=== PATIENT | male | born 1955 | race Caucasian/White ===

== ENCOUNTER 2023-03-08 05:30 | Inpatient (IN) | payer OTHER ==
[2023-03-08] MEDS ORDERED: TENECTEPLASE 50 MG/10 ML VIAL IV ONE (06:10)
[2023-03-08 06:13] LABS: Absolute Lymphocytes (CBC) 2.3 K/uL (0.7-4.9); Hematocrit 45.6 % (39.6-49.0); Lymphocytes % 24.2 % (15.3-44.8); MCV 88.4 fL (80-100); MPV 7.8 fL (7.6-11.3); Platelets 243 thou/uL (152-406); RBC Red Blood Cell Count 5.15 M/uL (4.33-5.43)
[2023-03-08 06:15] LABS: Protime INR 0.8
[2023-03-08] MEDS ORDERED: ONDANSETRON 4 MG/2 ML VIAL ONE (06:15)
[2023-03-08] MEDS ORDERED: HYDRALAZINE HCL 20 MG/ML VIAL ONE ×2 (06:15→07:38)
[2023-03-08 06:42] LABS: ALT/SGPT 20 U/L (16-61); AST/SGOT 4 U/L (15-37); Albumin 3.5 g/dL (3.4-5.0); Alkaline Phosphatase 112 U/L (45-117); BUN Blood Urea Nitrogen 21 mg/dL (7-18); Bicarbonate 28 mEq/L (21-32); Bilirubin Total 0.3 mg/dL (0.2-1.0); Glomerular Filtration Rate 75 ml/min (=/>90); Glucose Level 365 mg/dL (74-106); Magnesium 2.1 mg/dL (1.6-2.4); Potassium 4.3 mEq/L (3.5-5.1); Protein, Total 6.7 g/dL (6.4-8.2); Sodium Level 135 mEq/L (136-145); Troponin High Sensitivity 5.9 pg/mL (<58.9)
[2023-03-08 06:47] LABS: Bilirubin Direct < 0.1 mg/dL (0-0.2); Bilirubin Indirect, Calculated ND mg/dL (0.2-0.8)
--- NOTE | 2023-03-08 06:57 | EDPHYS ---
Physician Documentation [facility] Name: Mohit Gamez Age: 67 yrs Sex: Male : 1955 Arrival Date: 03/08/2023 Time: 05:30 Bed 3 Private MD: ED Physician Rolan Carrillo HPI: 03/08 05:40 This 67 yrs old Male presents to ER via Unassigned with complaints of S/S of sp4 Possible Stroke. 05:41 Very pleasant 67-year-old male presents with a cute onset of reported left-sided sp4 weakness and slurred speech starting at 4:30 this morning when patient was getting ready for work. . Patient also reported problems using his left arm and left leg. However patient managed to walk into the emergency department. Patient has facial asymmetry with left-sided facial droop on arrival. . No prior similar history reported. Denies surgery in the last 2-months . Historical: - Allergies: 05:42 No Known Allergies; lg3 - Home Meds: 05:42 Metformin Oral [Active]; unknown "statin" [Active]; gleperil [Active]; lg3 - PMHx: 05:42 Diabetes mellitus; high cholesterol; HTN; lg3 - PSHx: 05:42 Appendectomy; lg3 - Immunization history:: Adult Immunizations up to date, Client reports receiving the 2nd dose of the Covid vaccine. - Social history:: Smoking status: Patient reports the use of cigarette tobacco products, smokes one pack cigarettes per day. Patient uses alcohol, on a daily basis. - Family history:: not pertinent. ROS: 05:41 Constitutional: Negative for fever, chills, and weight loss, Eyes: Negative for injury, sp4 pain, redness, and discharge, ENT: Negative for injury, pain, and discharge, Neck: Negative for injury, pain, and swelling, Cardiovascular: Negative for chest pain, palpitations, and edema, Respiratory: Negative for shortness of breath, cough, wheezing, and pleuritic chest pain, Abdomen/GI: Negative for abdominal pain, nausea, vomiting, diarrhea, and constipation, Back: Negative for injury and pain, : Negative for injury, bleeding, discharge, and swelling, MS/Extremity: Negative for injury and deformity, Skin: Negative for injury, rash, and discoloration, Neuro: Negative for headache, positive for left-sided weakness, left-sided facial asymmetry, slurring of the speech, left-sided numbness Psych: Negative for depression, anxiety, Allergy/Immunology: Negative for hives, rash, and allergies Endocrine: Negative for neck swelling, polydipsia, polyuria, polyphagia, and weight changes Hematologic/Lymphatic: Negative for swollen nodes, abnormal bleeding, and unusual bruising Exam: 05:41 Constitutional: This is a well developed, well nourished patient who is awake, alert, sp4 and in no acute distress. Head/Face: Normocephalic, atraumatic. Eyes: Pupils equal round and reactive to light, extra-ocular motions intact. Lids and lashes normal. Conjunctiva and sclera are not injected. Cornea within normal limits. Periorbital areas with no swelling, redness, or edema. ENT: Nares patent. No nasal discharge, no septal abnormalities noted. Tympanic membranes are normal and external auditory canals are clear. Oropharynx with no redness, swelling, or masses, exudates, or evidence of obstruction, uvula midline. Mucous membranes moist. Neck: Trachea midline, no thyromegaly or masses palpated, and no cervical lymphadenopathy. Supple, full range of motion without nuchal rigidity, or vertebral point tenderness. Chest/axilla: Normal chest wall appearance and motion. Nontender with no deformity. No lesions are appreciated. Cardiovascular: Regular rate and rhythm with a normal S1 and S2. No gallops, murmurs, or rubs. Normal PMI, no JVD. No pulse deficits. Respiratory: Lungs have equal breath sounds bilaterally, clear to auscultation and percussion. No rales, rhonchi or wheezes noted. No increased work of breathing, no retractions or nasal flaring. Abdomen/GI: Soft, non-tender, with normal bowel sounds. No distension or tympany. No guarding or rebound. No evidence of tenderness throughout. Back: No spinal tenderness. No costovertebral tenderness. Skin: Warm, dry with normal turgor. Normal color with no rashes, no lesions, and no evidence of cellulitis. MS/ Extremity: Pulses equal, no cyanosis. Neurovascular intact. Full, normal range of motion. Neuro: Awake and alert, GCS 15, oriented to person, place, time, and situation. There is a left-sided facial asymmetry, and there is mild dysarthria, there is diminished sensation left face left arm left lower extremity. Gait is normal, coordination is normal, visual briones are normal. Psych: Awake, alert, with orientation to person, place and time. Behavior, mood, and affect are within normal limits 06:03 ECG was reviewed by the Attending Physician. EKG time 0601 is normal sinus rhythm at sp4 a rate of 84, no ST elevation or depression, no ectopy overall normal EKG 07:01 Radiologist reports: CT head no contrastunremarkable sp4 Vital Signs: 05:38 BP 199 / 92; Pulse 92; Resp 18 S; Pulse Ox 99% on R/A; Height 5 ft. 10 in. (R); lg3 05:48 Weight 118 kg (M); lg3 06:00 BP 178 / 93; Pulse 87; Resp 16; Pulse Ox 97% on R/A; jb4 06:30 BP 164 / 90; Pulse 82; Resp 20; Pulse Ox 98% on R/A; jb4 07:15 BP 191 / 84; Pulse 75; Resp 18; Pulse Ox 99% on R/A; ph 07:39 BP 174 / 87; Pulse 89; Resp 18; Pulse Ox 100% on R/A; ph 08:00 BP 176 / 86; Pulse 92; Resp 18; Pulse Ox 98% on R/A; ph 09:00 BP 157 / 95; Pulse 96; Resp 18; Pulse Ox 99% on R/A; ph 09:30 BP 155 / 82; Pulse 90; Resp 18; Pulse Ox 100% on R/A; ph 10:30 BP 173 / 94; Pulse 86; Resp 18; Pulse Ox 98% on R/A; ph 11:30 BP 143 / 84; Pulse 85; Resp 18; Pulse Ox 98% on R/A; ph 12:30 BP 138 / 73; Pulse 84; Resp 18; Temp 97.5; Pulse Ox 99% on R/A; ph 13:00 BP 141 / 78; Pulse 87; Resp 18; Temp 97.5; Pulse Ox 99% on R/A; ph 05:48 Body Mass Index 37.33 (118.00 kg, 177.8 cm) lg3 NIH Stroke Scale Scores: 05:40 NIHSS Score: 4 sp4 05:47 NIHSS Score: 4 ha1 06:30 NIHSS Score: 3 ha1 06:49 NIHSS Score: 3 jb4 Eran Coma Score: 05:40 Eye Response: spontaneous(4). Motor Response: obeys commands(6). Verbal Response: sp4 oriented(5). Total: 15. MDM: 06:03 ED course: At [address] head read as negative. TNK ordered for the patient . sp4 06:03 Differential diagnosis: CVA, TIA, Dementia, paralysis, Alzheimer disease, Parkinson sp4 disease, metabolic disorder, drug effects. Data reviewed: vital signs, nurses notes, old medical records, lab test result(s), EKG, radiologic studies, CT scan, plain films. 06:16 Patient medically screened. sp4 06:57 ED course: EXAM DESCRIPTION: CT of the head without contrast CLINICAL HISTORY: STROKE sp4 ALERT COMPARISON: None available TECHNIQUE: Axial CT of the head obtained from the skull apex to the skull base without contrast. This exam was performed according to our departmental dose-optimization program, which includes automated exposure control, adjustment of the mA and/or kV according to patient size and/or use of iterative reconstruction technique. FINDINGS: No acute intracranial hemorrhage identified. No mass, mass effect, shift of the midline, abnormal extra-axial fluid collection or CT evidence of acute ischemic change identified. The ventricular system and sulcal spaces are age appropriate. Scattered areas of hypodensity throughout the supratentorial white matter are nonspecific and may be related to chronic small vessel ischemic change. The visualized paranasal sinuses and mastoid air cells are well aerated. No skull fracture identified. Visualized orbits and globes are unremarkable. Atherosclerotic calcification of the intracranial internal carotid arteries. IMPRESSION: 1. No acute intracranial abnormality by CT criteria. . ED course: EXAM DESCRIPTION: Chest Single View CLINICAL HISTORY: CVA COMPARISON: None. FINDINGS: Single frontal radiograph view of the chest. Cardiomediastinal silhouette: Normal size and contour. Lungs: No consolidation, pneumothorax, or pleural effusion. Bones: Degenerative change of the spine and shoulders. Upper abdomen: No abnormality identified. IMPRESSION: 1. No acute pneumonic process identified. . 06:57 ED course: Patient presents with acute CVA sign of left-sided weakness, left facial sp4 asymmetry by exam and also some dysarthria. There is no perceptible weakness along the strength exam on the left arm and left leg however there is perceptible left facial paralysis left-sided facial numbness as well. NIHSS score is 4. Patient was given TNK emergently here in the ER. There is no available ICU beds here at [place]. Patient was discussed with neurologist Dr. Michel who reports that patient should be managed in ICU. at this time patient is undergoing CT head and neck with angiography. Patient should be transferred to hospital with ICU capacity. . 07:04 Transition of care: After a detail discussion of the patient's case, care is sp4 transferred to Brittnee Mendenhall MD. 07:49 Transition of care: Care assumed from Rolan Carrillo MD. ED course: Pending results sd2 of CTA head and neck for transfer. . 09:40 ED course: Case discussed with [facility] Director and we will have ICU beds available sd2 today for this patient so no need to transfer at this time. Case discussed with Dr. Nava and accepted. . 03/08 05:38 Order name: Basic Metabolic Panel; Complete Time: 07:18 sp4 03/08 05:38 Order name: CBC with Diff; Complete Time: 07:18 sp4 03/08 05:38 Order name: Hepatic Function; Complete Time: 07:18 sp4 03/08 05:38 Order name: High Sensitivity Troponin; Complete Time: 07:18 sp4 03/08 05:38 Order name: Magnesium; Complete Time: 07:18 sp4 03/08 05:38 Order name: Protime (+inr); Complete Time: 07:18 sp4 03/08 05:38 Order name: Ptt, Activated; Complete Time: 07:18 sp4 03/08 05:38 Order name: UDS sp4 03/08 09:41 Order name: CBC with Automated Diff EDMS 03/08 09:41 Order name: CBC with Automated Diff EDMS 03/08 09:41 Order name: Comprehensive Metabolic Panel EDMS 03/08 09:41 Order name: Comprehensive Metabolic Panel EDMS 03/08 09:41 Order name: Lipid Profile EDMS 03/08 09:41 Order name: Lipid Profile EDMS 03/08 09:41 Order name: Magnesium EDMS 03/08 09:41 Order name: Magnesium EDMS 03/08 09:41 Order name: Phosphorus EDMS 03/08 09:41 Order name: Phosphorus EDMS 03/08 09:41 Order name: Protime (+INR) EDMS 03/08 09:41 Order name: Protime (+INR) EDMS 03/08 09:41 Order name: Protime (+INR) EDMS 03/08 09:41 Order name: Protime (+INR) EDMS 03/08 09:41 Order name: Protime (+INR) EDMS 03/08 09:41 Order name: Protime (+INR) EDMS 03/08 09:41 Order name: PTT, Activated Partial Thromb EDMS 03/08 09:41 Order name: PTT, Activated Partial Thromb EDMS 03/08 09:41 Order name: PTT, Activated Partial Thromb EDMS 03/08 09:41 Order name: PTT, Activated Partial Thromb EDMS 03/08 09:41 Order name: PTT, Activated Partial Thromb EDMS 03/08 09:41 Order name: PTT, Activated Partial Thromb EDMS 03/08 05:38 Order name: CT Stroke Brain w/o Contrast [facility] 03/08 05:38 Order name: Stroke CXR 1 View [facility] 03/08 06:01 Order name: CT Head Angio; Complete Time: 07:55 sp4 03/08 06:02 Order name: CT Neck Angio; Complete Time: 07:55 4 03/08 09:41 Order name: Echo with Doppler EDMI 03/08 09:41 Order name: Brain Wo Cont EDMI 03/08 05:38 Order name: EKG; Complete Time: 05:39 sp4 03/08 09:41 Order name: Physical Therapy Consult EDMI 03/08 09:41 Order name: NPO EDMI 03/08 09:41 Order name: Speech Therapy Consult [facility] 03/08 05:38 Order name: Accucheck; Complete Time: 06:31 sp4 03/08 05:38 Order name: Cardiac monitoring; Complete Time: 06:19 sp4 03/08 05:38 Order name: EKG - Nurse/Tech; Complete Time: 06:19 sp4 03/08 05:38 Order name: IV Saline Lock; Complete Time: 05:57 sp4 03/08 05:38 Order name: Labs collected and sent; Complete Time: 05:57 sp4 03/08 05:38 Order name: NPO; Complete Time: 05:57 sp4 03/08 05:38 Order name: O2 Per Protocol; Complete Time: 05:57 sp4 03/08 05:38 Order name: O2 Sat Monitoring; Complete Time: 05:57 sp4 03/08 05:38 Order name: Stroke Swallow Screen; Complete Time: 06:31 sp4 EC:03 Rate is 84 beats/min. Rhythm is regular, Normal Sinus Rhythm. QRS Liguori is Normal. IA sp4 interval is normal. QRS interval is normal. QT interval is normal. T waves are Normal. No ST changes noted. Clinical impression: No evidence of ischemia. Interpreted by me. Administered Medications: 06:09 Drug: TNK FOR STROKE - Tenecteplase IV 0.25 mg/kg {Co-Signature: tiny (april Linocln RN).} Route: IV; Rate: per protocol; Site: right forearm; 07:17 Follow up: Response: No adverse reaction ha1 06:12 Drug: hydrALAZINE IVP 10 mg Route: IVP; Site: left forearm; jb4 06:30 Follow up: Response: No adverse reaction; Blood pressure is lowered ha1 06:12 Drug: Ondansetron IVP 4 mg Route: IVP; Site: left forearm; jb4 06:30 Follow up: Response: No adverse reaction ha1 07:38 Drug: hydrALAZINE IVP 10 mg Route: IVP; Site: right forearm; ph 08:30 Follow up: Response: No adverse reaction; Blood pressure is lowered ph Disposition Summary: 03/08/23 09:38 Hospitalization Ordered Hospitalization Status: Inpatient Admission sd2 Provider: Leanna Nava Location: Intensive Care Unit sd2 Condition: Stable(03/08/23 09:38) sd2 Problem: new(03/08/23 09:38) sd2 Symptoms: have improved(03/08/23 09:38) sd2 Bed/Room Type: Standard tx2 Room Assignment: 2-(03/08/23 11:25) iw Diagnosis - Dysarthria sd2 - Left facial asymmetry sd2 - Left sided weakness sd2 - Cerebrovascular accident sd2 Forms: - Medication Reconciliation Form sd2 - SBAR form sd2 Critical care time excluding procedures: 07:04 Critical care time: Bedside Care: 36 minutes, Consultation: 12 minutes. Total time: 48 sp4 minutes NIH Stroke Scale - NIH Stroke Score Date: 03/08/2023 Time: 05:40 Total Score = 4 10. Dysarthria (speech clarity - read or repeat words) - 1(Mild to Moderate) 11. Extinction and Inattention (visual/tactile/auditory/spatial/personal) - 0(No abnormality) 1a. Level of Consciousness (LOC) - 0(Alert) 1b. Level of Consciousness (LOC) (Month \\T\\ Age) - 0(Both) 1c. LOC Commands (Open \\T\\ Closes Eyes/Ore Grader) - 0(Both) 2. Best Gaze (Lateral Gaze Paresis) - 0(Normal) 3. Visual Field Loss - 0(No visual loss) 4. Facial Palsy - 2(Partial paralysis) 5a. Left Arm: Motor (10-second hold) - 0(No drift) 5b. Right Arm: Motor (10-second hold) - 0(No drift) 6a. Left Leg: Motor (5-second hold - always test supine) - 0(No drift) 6b. Right Leg: Motor (5-second hold - always test supine) - 0(No drift) 7. Limb Ataxia (finger/nose \\T\\ heel/aponte - test with eyes open) - 0(Absent) 8. Sensory Loss (pinprick arms/legs/face) - 1(Mild to moderate loss) 9. Best Language: Aphasia (description/naming/reading) - 0(No aphasia) Initials: sp4 NIH Stroke Scale - NIH Stroke Score Date: 03/08/2023 Time: 05:47 Total Score = 4 10. Dysarthria (speech clarity - read or repeat words) - 1(Mild to Moderate) 11. Extinction and Inattention (visual/tactile/auditory/spatial/personal) - 0(No abnormality) 1a. Level of Consciousness (LOC) - 0(Alert) 1b. Level of Consciousness (LOC) (Month \\T\\ Age) - 0(Both) 1c. LOC Commands (Open \\T\\ Closes Eyes/Ore Grader) - 0(Both) 2. Best Gaze (Lateral Gaze Paresis) - 0(Normal) 3. Visual Field Loss - 0(No visual loss) 4. Facial Palsy - 2(Partial paralysis) 5a. Left Arm: Motor (10-second hold) - 0(No drift) 5b. Right Arm: Motor (10-second hold) - 0(No drift) 6a. Left Leg: Motor (5-second hold - always test supine) - 0(No drift) 6b. Right Leg: Motor (5-second hold - always test supine) - 0(No drift) 7. Limb Ataxia (finger/nose \\T\\ heel/aponte - test with eyes open) - 0(Absent) 8. Sensory Loss (pinprick arms/legs/face) - 1(Mild to moderate loss) 9. Best Language: Aphasia (description/naming/reading) - 0(No aphasia) Initials: ha1 NIH Stroke Scale - NIH Stroke Score Date: 03/08/2023 Time: 06:30 Total Score = 3 10. Dysarthria (speech clarity - read or repeat words) - 0(Normal) 11. Extinction and Inattention (visual/tactile/auditory/spatial/personal) - 0(No abnormality) 1a. Level of Consciousness (LOC) - 0(Alert) 1b. Level of Consciousness (LOC) (Month \\T\\ Age) - 0(Both) 1c. LOC Commands (Open \\T\\ Closes Eyes/Ore Grader) - 0(Both) 2. Best Gaze (Lateral Gaze Paresis) - 0(Normal) 3. Visual Field Loss - 0(No visual loss) 4. Facial Palsy - 2(Partial paralysis) 5a. Left Arm: Motor (10-second hold) - 0(No drift) 5b. Right Arm: Motor (10-second hold) - 0(No drift) 6a. Left Leg: Motor (5-second hold - always test supine) - 0(No drift) 6b. Right Leg: Motor (5-second hold - always test supine) - 0(No drift) 7. Limb Ataxia (finger/nose \\T\\ heel/aponte - test with eyes open) - 0(Absent) 8. Sensory Loss (pinprick arms/legs/face) - 1(Mild to moderate loss) 9. Best Language: Aphasia (description/naming/reading) - 0(No aphasia) Initials: ha1 NIH Stroke Scale - NIH Stroke Score Date: 03/08/2023 Time: 06:49 Total Score = 3 10. Dysarthria (speech clarity - read or repeat words) - 1(Mild to Moderate) 11. Extinction and Inattention (visual/tactile/auditory/spatial/personal) - 0(No abnormality) 1a. Level of Consciousness (LOC) - 0(Alert) 1b. Level of Consciousness (LOC) (Month \\T\\ Age) - 0(Both) 1c. LOC Commands (Open \\T\\ Closes Eyes/Ore Grader) - 0(Both) 2. Best Gaze (Lateral Gaze Paresis) - 0(Normal) 3. Visual Field Loss - 0(No visual loss) 4. Facial Palsy - 1(Minor Paralysis) 5a. Left Arm: Motor (10-second hold) - 0(No drift) 5b. Right Arm: Motor (10-second hold) - 0(No drift) 6a. Left Leg: Motor (5-second hold - always test supine) - 0(No drift) 6b. Right Leg: Motor (5-second hold - always test supine) - 0(No drift) 7. Limb Ataxia (finger/nose \\T\\ heel/aponte - test with eyes open) - 0(Absent) 8. Sensory Loss (pinprick arms/legs/face) - 1(Mild to moderate loss) 9. Best Language: Aphasia (description/naming/reading) - 0(No aphasia) Initials: jb4 Signatures: Dispatcher [employer] EDVanna Dougherty, RN RN iw Ewa Justice RN RN ph Aden Lincoln, ANDRES RN jb4 Joya Nunez RN RN lg3 Brittnee Mendenhall MD MD sd2 Estefanía Hughes RN RN ha1 Rolan Carrillo MD MD sp4 Aden Lincoln RN jb4 Corrections: (The following items were deleted from the chart) 09:37 06:57 [facility] neurology, [facility] sp4 sd2 09:37 06:57 [facility] sp4 sd2 09:37 06:57 Higher level of care sp4 sd2 09:37 06:57 Stable sp4 sd2 09:37 06:57 new sp4 sd2 09:37 06:57 have improved sp4 sd2 09:37 06:57 Dysarthria following other cerebrovascular disease sp4 sd2 09:37 06:57 Acute CVA, left-sided weakness, left facial paralysis sp4 sd2 11:25 09:38 sd2 iw
--- NOTE | 2023-03-08 06:57 | ER ---
Nurse's Notes [facility] Name: Mohit Gamez Age: 67 yrs Sex: Male : 1955 Arrival Date: 03/08/2023 Time: 05:30 Bed 3 Private MD: Diagnosis: Dysarthria;Left facial asymmetry;Left sided weakness ;Cerebrovascular accident Presentation: 03/08 05:38 Chief complaint: Patient states: left sided numbness and weakness starting 2030 lg3 yesterday. left sided facial droop and slurred speech beginning at 0430 this morning. Coronavirus screen: Client denies travel out of the [place] in the last 14 days. At this time, the client does not indicate any symptoms associated with coronavirus-19. Ebola Screen: No symptoms or risks identified at this time. No acute neurological deficit is noted. Initial Sepsis Screen: Does the patient meet any 2 criteria? No. Patient's initial sepsis screen is negative. Does the patient have a suspected source of infection? No. Patient's initial sepsis screen is negative. Risk Assessment: Do you want to hurt yourself or someone else? Patient reports no desire to harm self or others. Onset of symptoms was March 08, 2023 at 04:30. 05:38 Method Of Arrival: Wheelchair lg3 05:38 Acuity: SAHRA 2 lg3 Triage Assessment: 05:42 The onset of the patients symptoms was March 08, 2023 at 04:30. General: Appears in no lg3 apparent distress. comfortable, Behavior is calm, cooperative. Pain: Denies pain. EENT: No deficits noted. Neuro: Level of Consciousness is awake, alert, obeys commands, Oriented to person, place, time, situation, Speech is slurred, Facial droop on left, Reports numbness weakness. Cardiovascular: No deficits noted. Denies chest pain, shortness of breath, Capillary refill < 3 seconds Clubbing of nail beds is absent JVD is absent Patient's skin is warm and dry. Respiratory: No deficits noted. Airway is patent Respiratory effort is even, unlabored, Respiratory pattern is regular, symmetrical. GI: No deficits noted. No signs and/or symptoms were reported involving the gastrointestinal system. Abdomen is round non-distended. : No deficits noted. No signs and/or symptoms were reported regarding the genitourinary system. Derm: No deficits noted. No signs and/or symptoms reported regarding the dermatologic system. Skin is intact, is healthy with good turgor, Skin is dry, Skin is normal, Skin temperature is warm. Musculoskeletal: Circulation, motion, and sensation intact. Range of motion: intact in all extremities. Stroke Activation: Symptom onset < 3 hours Physician: Stroke Attending; Name: ; Notified At: ; Arrived At: Physician: Chief Stroke Resident; Name: ; Notified At: ; Arrived At: Physician: Stroke Resident; Name: ; Notified At: ; Arrived At: Physician: ED Attending; Name: ; Notified At: ; Arrived At: Physician: ED Resident; Name: ; Notified At: ; Arrived At: Historical: - Allergies: 05:42 No Known Allergies; lg3 - Home Meds: 05:42 Metformin Oral [Active]; unknown "statin" [Active]; gleperil [Active]; lg3 - PMHx: 05:42 Diabetes mellitus; high cholesterol; HTN; lg3 - PSHx: 05:42 Appendectomy; lg3 - Immunization history:: Adult Immunizations up to date, Client reports receiving the 2nd dose of the Covid vaccine. - Social history:: Smoking status: Patient reports the use of cigarette tobacco products, smokes one pack cigarettes per day. Patient uses alcohol, on a daily basis. - Family history:: not pertinent. Screenin:32 Abuse screen: Denies threats or abuse. Denies injuries from another. Nutritional ha1 screening: No deficits noted. Tuberculosis screening: No symptoms or risk factors identified. 06:34 [facility] ED Fall Risk Assessment (Adult) History of falling in the last 3 months, jb4 including since admission No falls in past 3 months (0 pts) Confusion or Disorientation No (0 pts) Score/Fall Risk Level 0 - 2 = Low Risk. Assessment: 05:37 General: Appears comfortable, Behavior is calm, cooperative. Pain: Denies pain. Neuro: ha1 Level of Consciousness is awake, alert, obeys commands, Oriented to person, place, time, situation, Diploma Maker are weak on left Moves all extremities. Full function Gait is steady, Speech is slurred, Facial droop on left, Pupils are PERRLA, Tingling in left arm Reports paresthesias in left arm. Neuro: Fonseca Agitation-Sedation Scale (RASS): 0 - Alert and Calm. Cardiovascular: Heart tones S1 S2 present Patient's skin is warm and dry. Rhythm is sinus rhythm. Respiratory: Airway is patent Respiratory effort is even, unlabored, Respiratory pattern is regular, symmetrical. GI: No signs and/or symptoms were reported involving the gastrointestinal system. Abdomen is round non-distended, obese, Bowel sounds present X 4 quads. : No signs and/or symptoms were reported regarding the genitourinary system. EENT: No deficits noted. No signs and/or symptoms were reported regarding the EENT system. Derm: Skin is pink, warm \\T\\ dry. Musculoskeletal: Circulation, motion, and sensation intact. 05:49 TNKase (Tenecteplase) Screening: Indications: Definite evidence of stroke, ischemic, ha1 embolic, or hypertensive: Yes. Treatment will start within 4.5 hours onset of symptoms: Yes. No evidence of intracranial hemorrhage or CT of head and no evidence of peripheral hemorrhage or recent CVA: No. Consent for thrombolytic therapy: Yes. 05:58 Reassessment: CT report called to Dr Carrillo. 06:13 Reassessment: ER provider instructed this nurse to give 10mg of hydralazine per Dr. tiny Michel to maintain a systolic pressure less than 170. 06:30 Reassessment: Patient and/or family updated on plan of care and expected duration. Pain ha1 level reassessed. Patient is alert, oriented x 3, equal unlabored respirations, skin warm/dry/pink. 06:31 Edie Swallow Protocol Brief Cognitive Screen What is your name? Normal, Where are you jb4 right now? Normal, What year is it? Normal. Oral Mechanism Examination Facial Symmetry: Abnormal: Droop to the left side of the face. Motion: Normal, Lip Closure: Normal, Oral Mechanism Result: Abnormal: . 3 oz Water Swallow Challenge: Pt able to drink all water without stopping, coughing, choking or throat clearing: Result: GLADYS EVANS Notified: Rolan Carrillo MD. 06:51 Neuro: Level of Consciousness is awake, alert, obeys commands, Oriented to person, jb4 place, time, situation, Diploma Maker are weak on left Full function Gait is steady, Speech is slurred, Facial droop on left, Pupils are PERRLA, Numbness in left arm. 07:15 Reassessment: Patient appears in no apparent distress at this time. Patient and/or ph family updated on plan of care and expected duration. Pain level reassessed. Patient is alert, oriented x 3, equal unlabored respirations, skin warm/dry/pink. Patient denies pain at this time. 08:30 Reassessment: Patient appears in no apparent distress at this time. Patient and/or ph family updated on plan of care and expected duration. Pain level reassessed. Patient is alert, oriented x 3, equal unlabored respirations, skin warm/dry/pink. 10:00 Reassessment: Patient appears in no apparent distress at this time. Patient and/or ph family updated on plan of care and expected duration. Pain level reassessed. Patient is alert, oriented x 3, equal unlabored respirations, skin warm/dry/pink. 11:00 Reassessment: Patient appears in no apparent distress at this time. Patient and/or ph family updated on plan of care and expected duration. Pain level reassessed. Patient is alert, oriented x 3, equal unlabored respirations, skin warm/dry/pink. 12:53 Reassessment: Patient appears in no apparent distress at this time. Patient and/or ph family updated on plan of care and expected duration. Pain level reassessed. Patient is alert, oriented x 3, equal unlabored respirations, skin warm/dry/pink. Report called to Renea CAMPOS. Vital Signs: 05:38 BP 199 / 92; Pulse 92; Resp 18 S; Pulse Ox 99% on R/A; Height 5 ft. 10 in. (R); lg3 05:48 Weight 118 kg (M); lg3 06:00 BP 178 / 93; Pulse 87; Resp 16; Pulse Ox 97% on R/A; jb4 06:30 BP 164 / 90; Pulse 82; Resp 20; Pulse Ox 98% on R/A; jb4 07:15 BP 191 / 84; Pulse 75; Resp 18; Pulse Ox 99% on R/A; ph 07:39 BP 174 / 87; Pulse 89; Resp 18; Pulse Ox 100% on R/A; ph 08:00 BP 176 / 86; Pulse 92; Resp 18; Pulse Ox 98% on R/A; ph 09:00 BP 157 / 95; Pulse 96; Resp 18; Pulse Ox 99% on R/A; ph 09:30 BP 155 / 82; Pulse 90; Resp 18; Pulse Ox 100% on R/A; ph 10:30 BP 173 / 94; Pulse 86; Resp 18; Pulse Ox 98% on R/A; ph 11:30 BP 143 / 84; Pulse 85; Resp 18; Pulse Ox 98% on R/A; ph 12:30 BP 138 / 73; Pulse 84; Resp 18; Temp 97.5; Pulse Ox 99% on R/A; ph 13:00 BP 141 / 78; Pulse 87; Resp 18; Temp 97.5; Pulse Ox 99% on R/A; ph 05:48 Body Mass Index 37.33 (118.00 kg, 177.8 cm) lg3 Eran Coma Score: 05:40 Eye Response: spontaneous(4). Motor Response: obeys commands(6). Verbal Response: sp4 oriented(5). Total: 15. NIH Stroke Scale Scores: 05:40 NIHSS Score: 4 sp4 05:47 NIHSS Score: 4 ha1 06:30 NIHSS Score: 3 ha1 06:49 NIHSS Score: 3 jb4 ED Course: 05:30 Patient arrived in ED. ja2 05:32 Patient has correct armband on for positive identification. Placed in gown. Bed in low ha1 position. Call light in reach. Side rails up X2. 05:32 Arm band placed on right wrist. ha1 05:38 Rolan Carrillo MD is Attending Physician. sp4 05:42 Triage completed. lg3 05:47 CT Stroke Brain w/o Contrast In Process Unspecified. EDMS 05:50 Initial lab(s) drawn, by sd, sent to lab. Inserted saline lock: 18 gauge in right jb4 antecubital area, using aseptic technique. Blood collected. 05:53 Stroke CXR 1 View In Process Unspecified. EDMS 05:57 Inserted saline lock: 20 gauge in left forearm, using aseptic technique. kl 07:00 Report given to ANDRES ALEJANDRO. ha1 07:17 CT Head Angio In Process Unspecified. EDMS 07:17 CT Neck Angio In Process Unspecified. EDMS 07:21 Ewa Justice, RN is Primary Nurse. ph 07:59 No provider procedures requiring assistance completed. Patient transferred, IV remains ph in place. 07:59 Provided Education on: Pt and family educated on risk of bleeding r/t TNK. ph 09:37 Leanna Nava MD is Hospitalizing Provider. sd2 Administered Medications: 06:09 Drug: TNK FOR STROKE - Tenecteplase IV 0.25 mg/kg {Co-Signature: jb4 (Salazar, jonathan1 Aden CAMPOS).} Route: IV; Rate: per protocol; Site: right forearm; 07:17 Follow up: Response: No adverse reaction ha1 06:12 Drug: hydrALAZINE IVP 10 mg Route: IVP; Site: left forearm; jb4 06:30 Follow up: Response: No adverse reaction; Blood pressure is lowered ha1 06:12 Drug: Ondansetron IVP 4 mg Route: IVP; Site: left forearm; jb4 06:30 Follow up: Response: No adverse reaction ha1 07:38 Drug: hydrALAZINE IVP 10 mg Route: IVP; Site: right forearm; ph 08:30 Follow up: Response: No adverse reaction; Blood pressure is lowered ph Medication: 07:40 VIS not applicable for this client. ph Outcome: 06:57 ER care complete, transfer ordered by . sp4 09:38 Decision to Hospitalize by Provider. sd2 12:55 Admitted to ICU accompanied by nurse, accompanied by tech, room 2, with chart, Report ph called to ANDRES Meier 12:55 Condition: stable 12:55 Instructed on the need for admit. 13:25 Patient left the ED. ds4 NIH Stroke Scale - NIH Stroke Score Date: 03/08/2023 Time: 05:40 Total Score = 4 10. Dysarthria (speech clarity - read or repeat words) - 1(Mild to Moderate) 11. Extinction and Inattention (visual/tactile/auditory/spatial/personal) - 0(No abnormality) 1a. Level of Consciousness (LOC) - 0(Alert) 1b. Level of Consciousness (LOC) (Month \\T\\ Age) - 0(Both) 1c. LOC Commands (Open \\T\\ Closes Eyes/Loan And Credit Manager) - 0(Both) 2. Best Gaze (Lateral Gaze Paresis) - 0(Normal) 3. Visual Field Loss - 0(No visual loss) 4. Facial Palsy - 2(Partial paralysis) 5a. Left Arm: Motor (10-second hold) - 0(No drift) 5b. Right Arm: Motor (10-second hold) - 0(No drift) 6a. Left Leg: Motor (5-second hold - always test supine) - 0(No drift) 6b. Right Leg: Motor (5-second hold - always test supine) - 0(No drift) 7. Limb Ataxia (finger/nose \\T\\ heel/aponte - test with eyes open) - 0(Absent) 8. Sensory Loss (pinprick arms/legs/face) - 1(Mild to moderate loss) 9. Best Language: Aphasia (description/naming/reading) - 0(No aphasia) Initials: sp4 NIH Stroke Scale - NIH Stroke Score Date: 03/08/2023 Time: 05:47 Total Score = 4 10. Dysarthria (speech clarity - read or repeat words) - 1(Mild to Moderate) 11. Extinction and Inattention (visual/tactile/auditory/spatial/personal) - 0(No abnormality) 1a. Level of Consciousness (LOC) - 0(Alert) 1b. Level of Consciousness (LOC) (Month \\T\\ Age) - 0(Both) 1c. LOC Commands (Open \\T\\ Closes Eyes/Loan And Credit Manager) - 0(Both) 2. Best Gaze (Lateral Gaze Paresis) - 0(Normal) 3. Visual Field Loss - 0(No visual loss) 4. Facial Palsy - 2(Partial paralysis) 5a. Left Arm: Motor (10-second hold) - 0(No drift) 5b. Right Arm: Motor (10-second hold) - 0(No drift) 6a. Left Leg: Motor (5-second hold - always test supine) - 0(No drift) 6b. Right Leg: Motor (5-second hold - always test supine) - 0(No drift) 7. Limb Ataxia (finger/nose \\T\\ heel/aponte - test with eyes open) - 0(Absent) 8. Sensory Loss (pinprick arms/legs/face) - 1(Mild to moderate loss) 9. Best Language: Aphasia (description/naming/reading) - 0(No aphasia) Initials: ha1 NIH Stroke Scale - NIH Stroke Score Date: 03/08/2023 Time: 06:30 Total Score = 3 10. Dysarthria (speech clarity - read or repeat words) - 0(Normal) 11. Extinction and Inattention (visual/tactile/auditory/spatial/personal) - 0(No abnormality) 1a. Level of Consciousness (LOC) - 0(Alert) 1b. Level of Consciousness (LOC) (Month \\T\\ Age) - 0(Both) 1c. LOC Commands (Open \\T\\ Closes Eyes/Loan And Credit Manager) - 0(Both) 2. Best Gaze (Lateral Gaze Paresis) - 0(Normal) 3. Visual Field Loss - 0(No visual loss) 4. Facial Palsy - 2(Partial paralysis) 5a. Left Arm: Motor (10-second hold) - 0(No drift) 5b. Right Arm: Motor (10-second hold) - 0(No drift) 6a. Left Leg: Motor (5-second hold - always test supine) - 0(No drift) 6b. Right Leg: Motor (5-second hold - always test supine) - 0(No drift) 7. Limb Ataxia (finger/nose \\T\\ heel/aponte - test with eyes open) - 0(Absent) 8. Sensory Loss (pinprick arms/legs/face) - 1(Mild to moderate loss) 9. Best Language: Aphasia (description/naming/reading) - 0(No aphasia) Initials: ha1 NIH Stroke Scale - NIH Stroke Score Date: 03/08/2023 Time: 06:49 Total Score = 3 10. Dysarthria (speech clarity - read or repeat words) - 1(Mild to Moderate) 11. Extinction and Inattention (visual/tactile/auditory/spatial/personal) - 0(No abnormality) 1a. Level of Consciousness (LOC) - 0(Alert) 1b. Level of Consciousness (LOC) (Month \\T\\ Age) - 0(Both) 1c. LOC Commands (Open \\T\\ Closes Eyes/Loan And Credit Manager) - 0(Both) 2. Best Gaze (Lateral Gaze Paresis) - 0(Normal) 3. Visual Field Loss - 0(No visual loss) 4. Facial Palsy - 1(Minor Paralysis) 5a. Left Arm: Motor (10-second hold) - 0(No drift) 5b. Right Arm: Motor (10-second hold) - 0(No drift) 6a. Left Leg: Motor (5-second hold - always test supine) - 0(No drift) 6b. Right Leg: Motor (5-second hold - always test supine) - 0(No drift) 7. Limb Ataxia (finger/nose \\T\\ heel/aponte - test with eyes open) - 0(Absent) 8. Sensory Loss (pinprick arms/legs/face) - 1(Mild to moderate loss) 9. Best Language: Aphasia (description/naming/reading) - 0(No aphasia) Initials: jb4 Signatures: Dispatcher [employer] EDMS Asha Cohen, ANDRES RN delmi Hall Errol ds4 Ewa Justice RN RN ph Aden Lincoln RN RN jb4 Joya Nunez RN RN lg3 Yoselyn Ellis Stephanie, MD MD sd2 Estefanía Hughes RN RN ha1 Rolan Carrillo MD MD sp4 Aden Lincoln RN jb4 Corrections: (The following items were deleted from the chart) 06:51 06:30 BP 164 / 9; Pulse 82bpm; Resp 20bpm; Pulse Ox 98% RA; jb4 jb4 07:24 05:37 TNKase (Tenecteplase) Screening: Indications: Definite evidence of ha1 stroke, ischemic, embolic, or hypertensive: Yes. Treatment will start within 4.5 hours onset of symptoms: No evidence of intracranial hemorrhage or CT of head and no evidence of peripheral hemorrhage or recent CVA: No. Consent for thrombolytic therapy: Yes. ha1 07:26 05:37 VAN Scoring: Arm Drift: Patients demonstrates NO arm weakness. Patient is ha1 VAN Negative. ha1 12:55 11:30 BP 138 / 73; Pulse 84bpm; Resp 18bpm; Pulse Ox 99% RA; Temp 97.5F; ph ph
--- NOTE | 2023-03-08 07:42 | RAD REPORT ---
EXAM DESCRIPTION: CT - Neck Angio - 03/08/2023 7:15 am CLINICAL HISTORY: dystharthria COMPARISON: Head angio dated 03/08/2023 TECHNIQUE: Axial CT angiography images of the head was performed with multiplanar and maximum intens ity projection reconstructions. Images performed following intravenous administration of 95mL Isovue 370. All CT scans are performed using dose optimization technique as appropriate and may include automated exposure control or mA/KV adjustment according to patient size. Quantification of carotid stenosis, if any, is performed according to NASCET criteria. FINDINGS: A left aortic arch is identified with 4 vessel configuration scan with the left vertebral artery arising as the third vessel from the arch. No significant flow abnormality is seen of the common carotid bilaterally. Beam hardening artifact du e to dense right subclavian vein contrast obscures the right common carotid artery origin. No significant stenosis is identified involving the cervical segments of both internal carotid arteri es. Mild calcific atherosclerotic plaque at the carotid bifurcations. Normal flow is seen within both vertebral arteries. IMPRESSION: No significant flow abnormality of the neck vessels is identified. Findings as above. CAROTID STENOSIS REFERENCE USING NASCET CRITERIA: % ICA stenosis = (1 - narrowest ICA diameter/diameter of distal cervical ICA) x 100. Mild - <50% stenosis. Moderate - 50-69% stenosis. Severe - 70-94% stenosis. Near occlusion - 95-99% stenosis. Occluded - 100% stenosis.
--- NOTE | 2023-03-08 07:54 | RAD REPORT ---
EXAM DESCRIPTION: CT - Head angio - 03/08/2023 7:15 am CLINICAL HISTORY: APHASIA COMPARISON: Ct Stroke Brain Wo Cont dated 03/08/2023 TECHNIQUE: Axial CT angiography images of the head was performed with multiplanar and maximum intens ity projection reconstructions. Images performed following intravenous administration of 95mL Isovue 370. All CT scans are performed using dose optimization technique as appropriate and may include automated exposure control or mA/KV adjustment according to patient size. FINDINGS: No evidence of large vessel occlusion. No evidence of aneurysm or dissection flap is detec andre. No flow-limiting stenosis or vascular malformation identified. [id number] atherosclerotic calcifications along cavernous ICA segments. Antegrade flow is seen in the vertebral arteries. The vertebral arteries are codominant. The visualized dural venous sinuses are grossly patent. IMPRESSION: No evidence of large vessel occlusion or flow-limiting stenosis.
[2023-03-08] MEDS ORDERED: ACETAMINOPHEN 500 MG TAB PO PRN (09:36)
[2023-03-08] MEDS ORDERED: ONDANSETRON 4 MG/2 ML VIAL IV PRN (09:36)
--- NOTE | 2023-03-08 12:10 | RAD REPORT ---
EXAM DESCRIPTION: MRI - Brain Wo Cont - 03/08/2023 11:50 am CLINICAL HISTORY: CVA; dysarthria COMPARISON: Head CT and CT angiogram of earlier the same day TECHNIQUE: Multiplanar multisequence MRI of the brain performed without IV contrast. FINDINGS: Right centrum semiovale foci of diffusion restriction, with corresponding T2 and FLAIR hyp erintensity. No significant mass effect. No evidence of acute intracranial hemorrhage or abnormal extra-axial fluid collections. Mild diffuse parenchymal volume loss. Ventricular caliber otherwise within normal for age. Midline st ructures are unremarkable. Scattered subcortical and deep white matter T2/FLAIR hyperintensities, nonspecific, but suggestive of chronic small vessel ischemic changes. No mass effect or midline shift. Major vascular flow voids are preserved. Mastoid air cells and paranasal sinuses are clear. Right temporalis region dermal or hypo dermal T2 hyperintense 1.5 centimeter cyst. IMPRESSION: Right centrum semiovale acute to subacute infarct. No evidence of intracranial hemorrhage or significant mass effect. The findings were communicated to Dr. Mendenhall on 03/08/2023 at 12:05 hours.
--- NOTE | 2023-03-08 12:18 | RAD REPORT ---
EXAM DESCRIPTION: RAD - Chest Single View - 03/08/2023 5:52 am CLINICAL HISTORY: CVA COMPARISON: None. FINDINGS: Single frontal radiograph view of the chest. Cardiomediastinal silhouette: Normal size and contour. Lungs: No consolidation, pneumothorax, or pleural effusion. Bones: Degenerative change of the spine and shoulders. Upper abdomen: No abnormality identified. IMPRESSION: 1. No acute pneumonic process identified. Electronically signed by: Luke Medina 03/08/2023 5:59 AM CDT Due to temporary technical issues with the PACS/Fluency reporting system, reports are being signed by the in house radiologists without review as a courtesy to insure prompt reporting. The interpreting radiologist is fully responsible for the content of the report.
--- NOTE | 2023-03-08 12:19 | RAD REPORT ---
EXAM DESCRIPTION: CT - Ct Stroke Brain Wo Cont - 03/08/2023 7:36 am CLINICAL HISTORY: STROKE ALERT COMPARISON: None available TECHNIQUE: Axial CT of the head obtained from the skull apex to the skull base without contrast. Thi s exam was performed according to our departmental dose-optimization program, which includes automate d exposure control, adjustment of the mA and/or kV according to patient size and/or use of iterative reconstruction technique. FINDINGS: No acute intracranial hemorrhage identified. No mass, mass effect, shift of the midline, a bnormal extra-axial fluid collection or CT evidence of acute ischemic change identified. The ventricu lar system and sulcal spaces are age appropriate. Scattered areas of hypodensity throughout the sup ratentorial white matter are nonspecific and may be related to chronic small vessel ischemic change. The visualized paranasal sinuses and mastoid air cells are well aerated. No skull fracture identifi ed. Visualized orbits and globes are unremarkable. Atherosclerotic calcification of the intracranial internal carotid arteries. IMPRESSION: 1. No acute intracranial abnormality by CT criteria. Electronically signed by: Luke Medina 03/08/2023 5:58 AM CDT Due to temporary technical issues with the PACS/Fluency reporting system, reports are being signed by the in house radiologists without review as a courtesy to insure prompt reporting. The interpreting radiologist is fully responsible for the content of the report.
[2023-03-08] MEDS: NA CHLORIDE 0.9% 1,000 ML IV SCH (14:17)
--- NOTE | 2023-03-08 15:43 | EKG ---
Test Date: 2023-03-08 Test Time: 06:01:17 Income Tax Analyst: ALEX MEASUREMENT RESULTS: Intervals: Rate: 84 [place]: 186 QRSD: 90 QT: 388 QTc: 458 [place]: P: 23 [place]: 186 QRS: -28 T: 30 INTERPRETIVE STATEMENTS: Normal sinus rhythm Minimal voltage criteria for LVH, may be normal variant Cannot rule out Anterior infarct, age undetermined Abnormal ECG Compared to ECG 05/13/2017 03:57:49 Left ventricular hypertrophy now present Myocardial infarct finding now present Electronically Signed On 03-08-23 15:42:54 CDT by Ej Valadez
[2023-03-08 16:26] LABS: Specific Gravity 1.023 (1.005-1.030); Urine Bacteria <20 /HPF (<20); Urine Bilirubin NEGATIVE (Negative); Urine Blood Negative (Negative); Urine Clarity Clear (Clear); Urine Color Colorless (Yellow); Urine Glucose 4+ (Negative); Urine Mucus Slight /HPF (None Seen); Urine Protein TRACE (Negative); Urine RBC <5 /HPF (None Seen); Urine Urobilinogen Normal (Normal)
[2023-03-08] MEDS ORDERED: D50W 25 GM/50 ML SYRINGE IV PRN (19:32)
[2023-03-08] MEDS ORDERED: GLUCAGON 1 MG/VIAL IM PRN (19:32)
--- NOTE | 2023-03-08 20:18 | P.HP ---
Certification for Inpatient Patient admitted to: Inpatient With expected LOS: >2 Midnights Patient will require the following post-hospital care: None Practitioner: I am a practitioner with admitting privileges, knowledge of patient current condition, hospital course, and medical plan of care. Services: Services provided to patient in accordance with Admission requirements found in Title 42 Section 412.3 of the Code of Federal Regulations Patient History Date of Service: 03/08/23 Reason for admission: Right sided weakness and dysarthria History of Present Illness: Patient is a 67-year-old gentleman who came to the hospital with complaints of right-sided weakness and dysarthria. When he woke up this morning he stated he was not feeling well. He came to the emergency room for further evaluation. His CT scan was unremarkable but he was still having clinical symptoms. He was given tenecteplase in the emergency room. MRI revealed that patient had a right centrum semiovale acute to subacute infarct with possibly Dysarthria-Clumsy Hand Syndrome. Patient will be monitored in the intensive care unit for the first 24 hours. Patient continues to have dysarthria and weakness. Patient with elevated blood pressure. Allow for permissive hypertension. Continue with strict blood sugar control. Continue with statin therapy and DVT prophylaxis. Patient will be counseled regarding tobacco cessation as well. Allergies No Known Drug Allergies Allergy (Verified 03/08/23 12:47) Unknown Home Medications: Lisinopril/Hydrochlorothiazide [Lisinopril-Hctz 20-25 mg Tab] 1 tab PO DAILY 03/08/23 Metformin HCl [Metformin HCl ER] 750 mg PO BID 03/08/23 Pravastatin [Pravachol*] 40 mg PO DAILY 03/08/23 - Past Medical/Surgical History Has patient received pneumonia vaccine in the past: No Diabetic: Yes -: NIDDM -: HTN -: [place] Cholesterol -: Appendectomy--childhood -: cyst removed from back when pt was a child - Family History Mother Medical History: Heart disease, Hypertension, Diabetes Father Medical History: Heart disease, Hypertension - Social History Smoking Status: Current every day smoker Alcohol use: Yes CD- Drugs: No Caffeine use: Yes Place of Residence: Home Review of Systems 10-point ROS is otherwise unremarkable Physical Examination - Vital Signs Temperature: 97.7 F Blood Pressure: 159/70 Pulse: 93 Respirations: 14 Pulse Ox (%): 96 - Physical Exam General: Alert, In no apparent distress, Oriented x3 HEENT: Atraumatic, PERRLA, Mucous membr. moist/pink, EOMI, Sclerae nonicteric Neck: Supple, 2+ carotid pulse no bruit, No LAD, Without JVD or thyroid abnormality Respiratory: Clear to auscultation bilaterally, Normal air movement Cardiovascular: Regular rate/rhythm, Normal S1 S2, No murmurs Gastrointestinal: Normal bowel sounds, Soft and benign, Non-distended, No tenderness Musculoskeletal: No clubbing, No swelling, No tenderness Integumentary: No rashes Neurological: Normal gait, Normal speech, Normal strength at 5/5 x4 extr, Normal tone, Sensation intact, Cranial nerves 3-12 intact, Normal affect Lymphatics: No axilla or inguinal lymphadenopathy - Studies Laboratory Data (last 24 hrs) 03/08/23 05:50: PT 9.6, INR 0.80, APTT 33.4 03/08/23 05:50: WBC 9.40, Hgb 14.8, Hct 45.6, Plt Count 243 03/08/23 05:50: Sodium 135 L, Potassium 4.3, BUN 21 H, Creatinine 1.09, Glucose 365 H, Magnesium 2.1, Total Bilirubin 0.3, AST 4 L, ALT 20, Alkaline Phosphatase 112 Assessment & Plan - Problems (Diagnosis) (1) Dysarthria-clumsy hand syndrome Current Visit: Yes Status: Acute (2) Lacunar infarct, acute Current Visit: Yes Status: Acute (3) HTN (hypertension) Current Visit: Yes Status: Acute (4) Dyslipidemia Current Visit: Yes Status: Acute (5) DM2 (diabetes mellitus, type 2) Current Visit: Yes Status: Acute - Plan 1. MRI of the brain; patient with centrum semiovale ovale infarct s/p TNK 2. Antiplatelet and statin therapy 3. Lipid profile 4. Physical therapy and speech therapy consultation 5. DVT prophylaxis 6. Neurochecks every 4 hours 7. Reassess stroke scale 8. Permissive HTN 9. GI and DVT prophylaxis Discharge Plan: Home Plan to discharge in: Greater than 2 days - Advance Directives Does patient have a Living Will: No Does patient have a Durable POA for Healthcare: No - Code Status/Comfort Care Code Status Assessed: Yes Code Status: Full Code Critical Care: No Time Spent Managing PTS Care (In Minutes): 45
[2023-03-08] MEDS: INSULIN -REGULAR HUMAN 50 UNIT/0.5 ML ML SQ SCH (20:25)
[2023-03-08] MEDS ORDERED: ATORVASTATIN 80 MG TAB PO SCH (21:00)
[2023-03-09] MEDS: NA CHLORIDE 0.9% 1,000 ML IV SCH ×3 (03:56→13:24)
[2023-03-09 05:34] LABS: Lymphocytes % 18.2 % (15.3-44.8); MCV 87.4 fL (80-100); MPV 7.8 fL (7.6-11.3); Platelets 243 thou/uL (152-406); RBC Red Blood Cell Count 5.04 M/uL (4.33-5.43)
[2023-03-09 05:53] LABS: Albumin 3.3 g/dL (3.4-5.0); Bilirubin Total 0.5 mg/dL (0.2-1.0); Phosphorus 3.7 mg/dL (2.5-4.9); Potassium 3.9 mEq/L (3.5-5.1); Protein, Total 6.3 g/dL (6.4-8.2)
[2023-03-09 06:00] LABS: Protime INR 0.98
[2023-03-09 06:22] LABS: Barbiturates NEGATIVE (NEGATIVE); Benzodiazepines NEGATIVE (NEGATIVE); Cocaine NEGATIVE (NEGATIVE); METHAMPHETAM NEGATIVE (NEGATIVE); Methadone NEGATIVE (NEGATIVE); Opiates NEGATIVE (NEGATIVE); Phencyclidine NEGATIVE (NEGATIVE); THC Cannibis NEGATIVE (NEGATIVE)
[2023-03-09] MEDS ORDERED: POTASSIUM 25 MEQ EFFERV TAB PO ONE (07:13)
[2023-03-09] MEDS: INSULIN -REGULAR HUMAN 50 UNIT/0.5 ML ML SQ SCH ×4 (08:00→20:33)
[2023-03-09] MEDS ORDERED: METOPROLOL TAR 25 MG TAB PO ONE (08:35)
[2023-03-09] MEDS ORDERED: INSULIN GLARGINE 100 UNIT/ML SQ ONE (08:35)
[2023-03-09] MEDS ORDERED: glyBURIDE 2.5 MG TAB PO ONE (08:40)
[2023-03-09] MEDS ORDERED: FENTANYL CITR 100 MCG/2 ML IV ONE (08:59)
[2023-03-09] MEDS ORDERED: lisinopriL 20 MG TAB PO SCH ×2 (09:00→13:20)
[2023-03-09] MEDS ORDERED: HOME MED 1 EA UNK (Lisinopril/Hydrochlorothiazide [Lisinopril-Hctz 20-25 Mg Tab] Tablet) PO SCH (09:00)
[2023-03-09] MEDS ORDERED: hydroCHLOROthiazide 25 MG TAB PO SCH ×2 (09:00→13:20)
[2023-03-09] MEDS ORDERED: HOME MED 1 EA UNK (Pravastatin [Pravachol*] 40 MG/TAB Tab) PO SCH (09:00)
--- NOTE | 2023-03-09 09:12 | RAD REPORT ---
EXAM DESCRIPTION: CT - Head Brain Wo Cont - 03/09/2023 8:39 am CLINICAL HISTORY: follow up S/P TNK COMPARISON: Head angio dated 03/08/2023; Ct Stroke Brain Wo Cont dated 03/08/2023; Brain Wo Cont dated 03/08/2023 TECHNIQUE: Noncontrast head CT images were obtained without IV contrast. Multiplanar reformats were generated and reviewed. All CT scans are performed using dose optimization technique as appropriate and may include automated exposure control or mA/KV adjustment according to patient size. FINDINGS: No intracranial hemorrhage, mass, or edema. Midline structures are unremarkable. Normal ventricular caliber for age. Focus of hypoattenuation in the right centrum semiovale, corresponding to known infarct seen on the p rior MRI. Ruiz-white matter differentiation is otherwise preserved, without evidence of acute infarct . No abnormal extra-axial fluid collections. Mastoid air cells and visualized portions of the paranasal sinuses are clear. No acute bony findings. IMPRESSION: Known right centrum semiovale subacute infarct. No other evidence of an acute intracrani al process.
[2023-03-09] MEDS: ASPIRIN EC 81 MG TAB PO SCH (09:19)
[2023-03-09] MEDS: ENOXAPARIN 40 MG/0.4 ML SQ SCH (09:19)
[2023-03-09] MEDS: CLOPIDOGREL 75 MG TABLET PO SCH (09:19)
[2023-03-09] MEDS ORDERED: NA CHLORIDE 0.9% 500 ML IV ONE (13:18)
--- NOTE | 2023-03-09 14:20 | ECHO ---
HEIGHT: 5 ft 10 in WEIGHT: 260 lb 1.6 oz DATE OF STUDY: 03/09/[address]: Leanna Nava MD 2-DIMENSIONAL: YES M.MODE: YES DOPPLER: YES COLOR FLOW: YES TDS: NO PORTABLE: YES DEFINITY: NO BUBBLE STUDY: NO DIAGNOSIS: STROKE CARDIAC HISTORY: CATHERIZATION: SURGERY: PROSTHETIC VALVE: PACEMAKER: MEASUREMENTS (cm) DIASTOLIC (NORMALS) SYSTOLIC (NORMALS) IVSd 1.0 (0.6-1.2) LA Diam 3.6 (1.9-4.0) LVEF 65% LVIDd 4.4 (3.5-5.7) LVIDs 2.8 (2.0-3.5) %FS 36% LVPWd 1.1 (0.6-1.2) Ao Diam 3.9 (2.0-3.7) 2 DIMENSIONAL ASSESSMENT: RIGHT ATRIUM: NORMAL LEFT ATRIUM: NORMAL RIGHT VENTRICLE: NORMAL LEFT VENTRICLE: MILD LEFT VENTRICULAR HYPERTROPHY TRICUSPID VALVE: TRACE OF TRICUSPID REGURGITATION MITRAL VALVE: NORMAL PULMONIC VALVE: NORMAL AORTIC VALVE: NORMAL PERICARDIAL EFFUSION: NONE AORTIC ROOT: NORMAL LEFT VENTRICULAR WALL MOTION: NORMAL. DOPPLER/COLOR FLOW: SEE BELOW. COMMENTS: 1. NORMAL LEFT VENTRICULAR EJECTION FRACTION 60-65%. 2. NORMAL WALL MOTION. 3. GRADE I DIASTOLIC DYSFUNCTION. MILD CONCENTRIC LEFT VENTRICULAR HYPERTROPHY. TECHNOLOGIST: MARIE COLLINS
[2023-03-09] MEDS ORDERED: METOPROLOL TAR 50 MG TAB PO SCH (18:00)
[2023-03-09] MEDS: METOPROLOL TAR 50 MG TAB PO SCH (18:16)
[2023-03-09] MEDS: FLUTICASONE 50MCG NASAL SPRAY NAS PRN (19:06)
[2023-03-09] MEDS: ATORVASTATIN 10 MG TAB PO SCH (20:26)
[2023-03-10] MEDS: NA CHLORIDE 0.9% 1,000 ML IV SCH ×2 (01:56→09:16)
[2023-03-10] MEDS: METOPROLOL TAR 50 MG TAB PO SCH ×2 (04:49→17:41)
[2023-03-10 05:21] LABS: Absolute Lymphocytes (CBC) 2.4 K/uL (0.7-4.9); Hematocrit 44.2 % (39.6-49.0); Lymphocytes % 20.2 % (15.3-44.8); MCV 88.1 fL (80-100); MPV 7.8 fL (7.6-11.3); Platelets 245 thou/uL (152-406); RBC Red Blood Cell Count 5.02 M/uL (4.33-5.43)
[2023-03-10 05:27] LABS: Protime INR 0.99
[2023-03-10 05:37] LABS: Potassium 3.6 mEq/L (3.5-5.1)
[2023-03-10] MEDS: INSULIN -REGULAR HUMAN 50 UNIT/0.5 ML ML SQ SCH ×4 (07:30→20:19)
[2023-03-10] MEDS ORDERED: POTASSIUM CL SA 10 MEQ TAB PO ONE (09:00)
[2023-03-10] MEDS: ASPIRIN EC 81 MG TAB PO SCH (09:14)
[2023-03-10] MEDS: CLOPIDOGREL 75 MG TABLET PO SCH (09:15)
[2023-03-10] MEDS: ENOXAPARIN 40 MG/0.4 ML SQ SCH (09:16)
[2023-03-10 11:41] VITALS: BMI 32.0
--- NOTE | 2023-03-10 15:29 | P.PN ---
Subjective Date of Service: 03/09/23 Weakness on the left side has worsened. CAT scan of the brain no significant abnormality. Continue with physical therapy and speech therapy. Patient uninsured. If he does not improve then we may need to see if hospital can assist with bud to go to rehab. Review of Systems 10-point ROS is otherwise unremarkable Physical Examination - Vital Signs Temperature: 97.4 F Blood Pressure: 180/95 Pulse: 85 Respirations: 17 Pulse Ox (%): 100 - Physical Exam General: Alert, In no apparent distress, Oriented x3 HEENT: Atraumatic, PERRLA, EOMI Neck: Supple, JVD not distended Respiratory: Clear to auscultation bilaterally, Normal air movement Cardiovascular: Regular rate/rhythm, Normal S1 S2, No murmurs Gastrointestinal: Normal bowel sounds, Soft and benign, Non-distended, No tenderness Musculoskeletal: No clubbing, No swelling, No tenderness Neurological: Normal speech, Normal affect, Abnormal gait, Abnormal strength, Abnormal tone Lymphatics: No axilla or inguinal lymphadenopathy - Studies Medications List Reviewed: Yes Assessment & Plan - Problems (Diagnosis) (1) Lacunar infarct, acute Current Visit: Yes Status: Acute (2) HTN (hypertension) Current Visit: Yes Status: Acute (3) Dyslipidemia Current Visit: Yes Status: Acute (4) DM2 (diabetes mellitus, type 2) Current Visit: Yes Status: Acute - Plan 1. MRI of the brain with acute infarct; repeat CT scan with no new abnormality; patient with centrum semiovale ovale infarct s/p TNK 2. Antiplatelet and statin therapy 3. Lipid profile shows LDL to be 99 4. Physical therapy and speech therapy appreciated/OT consult 5. DVT prophylaxis 6. Neurochecks every 4 hours 7. Reassess stroke scale 8. Permissive HTN; slowly lower 9. GI and DVT prophylaxis - Advance Directives Does patient have a Living Will: No Does patient have a Durable POA for Healthcare: No - Code Status/Comfort Care Code Status: Full Code Critical Care: No Time Spent Managing PTS Care (In Minutes): 35
--- NOTE | 2023-03-10 15:33 | P.PN ---
Date of Service: 03/10/23 Subjective Strength still significantly diminished. Patient with significant gait abnormality Review of Systems 10-point ROS is otherwise unremarkable Physical Examination - Vital Signs Reviewed - Physical Exam General: Alert, In no apparent distress, Oriented x3 Respiratory: Clear to auscultation bilaterally, Normal air movement Cardiovascular: Regular rate/rhythm, Normal S1 S2, No murmurs Gastrointestinal: Normal bowel sounds, Soft and benign, Non-distended, No tenderness Musculoskeletal: No clubbing, No swelling, No tenderness Neurological: Patient left-sided weakness; gait abnormality; 0 out of 5 with gravity on the left upper extremity Assessment & Plan - Problems (Diagnosis) (1) Lacunar infarct, acute Current Visit: Yes Status: Acute (2) HTN (hypertension) Current Visit: Yes Status: Acute (3) Dyslipidemia Current Visit: Yes Status: Acute (4) DM2 (diabetes mellitus, type 2) Current Visit: Yes Status: Acute - Plan Continue with plan of care as mentioned below: 1. MRI of the brain with acute infarct; repeat CT scan with no new abnormality; patient with centrum semiovale ovale infarct s/p TNK 2. Antiplatelet and statin therapy 3. Lipid profile shows LDL to be 99 4. Physical therapy and speech therapy appreciated/OT consult 5. DVT prophylaxis 6. Neurochecks every 4 hours 7. Reassess stroke scale 8. Permissive HTN; slowly lower 9. GI and DVT prophylaxis - Advance Directives Does patient have a Living Will: No Does patient have a Durable POA for Healthcare: No - Code Status/Comfort Care Code Status: Full Code Critical Care: No Time Spent Managing PTS Care (In Minutes): 35
[2023-03-10] MEDS ORDERED: AMLODIPINE 5 MG TAB PO ONE (15:34)
[2023-03-10] MEDS: FLUTICASONE 50MCG NASAL SPRAY NAS PRN (19:07)
[2023-03-10] MEDS: LOSARTAN POTASSIUM 50 MG TABLET PO SCH (20:18)
[2023-03-10] MEDS: ATORVASTATIN 10 MG TAB PO SCH (20:21)
[2023-03-11 05:22] LABS: Absolute Lymphocytes (CBC) 2.1 K/uL (0.7-4.9); Hematocrit 44.7 % (39.6-49.0); Lymphocytes % 18.7 % (15.3-44.8); MPV 7.4 fL (7.6-11.3); Platelets 245 thou/uL (152-406); RBC Red Blood Cell Count 5.08 M/uL (4.33-5.43)
[2023-03-11 05:30] LABS: Protime INR 1.05
[2023-03-11 05:35] LABS: Magnesium 1.9 mg/dL (1.6-2.4); Potassium 3.7 mEq/L (3.5-5.1)
[2023-03-11] MEDS: METOPROLOL TAR 50 MG TAB PO SCH ×2 (06:00→17:34)
[2023-03-11] MEDS: INSULIN -REGULAR HUMAN 50 UNIT/0.5 ML ML SQ SCH ×4 (07:28→21:00)
[2023-03-11] MEDS: CLOPIDOGREL 75 MG TABLET PO SCH (08:49)
[2023-03-11] MEDS: ENOXAPARIN 40 MG/0.4 ML SQ SCH (08:49)
[2023-03-11] MEDS: ASPIRIN EC 81 MG TAB PO SCH (08:49)
[2023-03-11] MEDS ORDERED: POTASSIUM CL SA 10 MEQ TAB PO ONE (08:51)
[2023-03-11] MEDS: LOSARTAN POTASSIUM 50 MG TABLET PO SCH ×2 (09:00→20:47)
[2023-03-11] MEDS: AMLODIPINE 5 MG TAB PO SCH (09:23)
--- NOTE | 2023-03-11 16:35 | P.PN ---
Date of Service: 03/11/23 Subjective Patient continues to slowly improve with no new complaints. Patient still with weakness on the left side of his upper extremity but he is working. May need to try and see if we can get bud rehab. Family is also working on [facility] benefits. Review of Systems 10-point ROS is otherwise unremarkable Physical Examination - Vital Signs Reviewed - Physical Exam General: Alert, In no apparent distress, Oriented x3 Respiratory: Clear to auscultation bilaterally, Normal air movement Cardiovascular: Regular rate/rhythm, Normal S1 S2, No murmurs Gastrointestinal: Normal bowel sounds, Soft and benign, Non-distended, No tenderness Musculoskeletal: No clubbing, No swelling, No tenderness Neurological: Patient left-sided weakness; gait abnormality; 0 out of 5 with gravity on the left upper extremity Assessment & Plan - Problems (Diagnosis) (1) Lacunar infarct, acute Current Visit: Yes Status: Acute (2) HTN (hypertension) Current Visit: Yes Status: Acute (3) Dyslipidemia Current Visit: Yes Status: Acute (4) DM2 (diabetes mellitus, type 2) Current Visit: Yes Status: Acute - Plan Continue with plan of care as mentioned below: 1. MRI of the brain with acute infarct; repeat CT scan with no new abnormality; patient with centrum semiovale ovale infarct s/p TNK 2. Antiplatelet and statin therapy 3. Lipid profile shows LDL to be 99 4. Physical therapy and speech therapy appreciated/OT consult 5. DVT prophylaxis 6. Permissive HTN; slowly lower 7. GI and DVT prophylaxis - Code Status/Comfort Care Code Status: Full Code Critical Care: No Time Spent Managing PTS Care (In Minutes): 35
[2023-03-11] MEDS: FLUTICASONE 50MCG NASAL SPRAY NAS PRN (20:46)
[2023-03-11] MEDS: ATORVASTATIN 10 MG TAB PO SCH (20:47)
[2023-03-12] MEDS: METOPROLOL TAR 50 MG TAB PO SCH ×2 (06:00→17:09)
[2023-03-12] MEDS: INSULIN -REGULAR HUMAN 50 UNIT/0.5 ML ML SQ SCH ×4 (07:30→20:28)
[2023-03-12] MEDS: ASPIRIN EC 81 MG TAB PO SCH (09:00)
[2023-03-12] MEDS: ENOXAPARIN 40 MG/0.4 ML SQ SCH (09:00)
[2023-03-12] MEDS: CLOPIDOGREL 75 MG TABLET PO SCH (09:00)
[2023-03-12] MEDS: LOSARTAN POTASSIUM 50 MG TABLET PO SCH ×2 (09:00→20:28)
[2023-03-12] MEDS: AMLODIPINE 5 MG TAB PO SCH (09:00)
[2023-03-12 13:28] LABS: Protime INR 1.11
--- NOTE | 2023-03-12 19:12 | P.PN ---
Subjective Date of Service: 03/12/23 Chief Complaint: Right sided weakness and dysarthria No acute events overnight. He reports an inability to move his left upper extremity. CM working on getting him placed into acute rehab. He denies any headaches, numbness/tingling, chest pain, or shortness of breath. Review of Systems 10-point ROS is otherwise unremarkable Neurological: Weakness (left-sided weakness, with facial droop) Physical Examination - Vital Signs Temperature: 97.1 F Blood Pressure: 150/89 Pulse: 98 Respirations: 24 Pulse Ox (%): 96 - Physical Exam General: Alert, In no apparent distress, Oriented x3 HEENT: Atraumatic, Mucous membr. moist/pink, Sclerae nonicteric Neck: JVD not distended Respiratory: Clear to auscultation bilaterally, Normal air movement Cardiovascular: No edema, Regular rate/rhythm, Normal S1 S2, No gallops, No rubs, No murmurs Gastrointestinal: Normal bowel sounds, Soft and benign, Non-distended, No tenderness, No rebound, No guarding Musculoskeletal: No clubbing Integumentary: No rashes Neurological: Normal speech, Sensation intact, Other (left-sided facial droop noted), Abnormal speech (0/5 strength in LUE, 3-4/5 strength in LLE, 5/5 strength in RUE/RLE) - Studies Medications List Reviewed: Yes Assessment And Plan - Plan NIH Stroke Scale 1a. Level of consciousness: 0 - Alert; keenly responsive 1b. LOC questions: 0 - Both questions right 1c. LOC commands: 0 - Performs both tasks 2. Best Gaze: 0 - Normal 3. Visual: 0 - No visual loss 4. Facial Palsy: 3 - unilateral complete paralysis (left) 5a. Motor left arm: 4 - no movement 5b. Motor right arm: 0 - No drift for 10 seconds 6a. Motor left le -Drift, but doesn't hit bed 6b. Motor right le - No drift for 5 seconds 7. Limb ataxia: 0 - No ataxia 8. Sensory: 0 - Normal; no sensory loss 9. Best Language: 0 - Normal; no aphasia 10. Dysarthria: 0 - Normal 11. Extinction and Inattention: 0 - No abnormality 12. Distal motor function: 0 - No abnormality Total Score: 8 # Acute Right Centrum Semiovale Cerebrovascular Accident # Hyperlipidemia - Consulted Neurology and spoke with Dr. iMchel - recommendations appreciated - NIHSS = 8 - Radiology: - Initial CT head = "1. No acute intracranial abnormality by CT criteria" - CT head angiogram = "no evidence of large vessel occlusion or flow-limiting stenosis." - CT neck angiogram = "no significant flow abnormality of the neck vessels is identified. Findings as above" - MRI brain = "right centrum semiovale acute to subacute infarct. No evidence of intracranial hemorrhage or significant mass effect." - 24 hours post-tenecteplase CT head = "known right centrum semiovale subacute infarct. No other evidence of an acute intracranial process" - Transthoracic echocardiogram = "1. normal left ventricular ejection fraction 60-65%. 2. normal wall motion. 3. grade I diastolic dysfunction. mild concentric left ventricular hypertrophy." - q4hr neurochecks - PT/OT evaluation requested - Ordered risk profile: - Hgb A1c = pending - Lipid panel = TC 191, LDL 99, HDL 42, TG 250 - TSH = pending - Continue aspirin, atorvastatin, folic acid, clopidogrel # Hyperglycemia in Type II Diabetes Mellitus - Hgb A1c pending - Correction scale insulin # Hypertension - Continue home amlodipine, metoprolol, losartan Everardo Duarte M.D.
[2023-03-12] MEDS ORDERED: FOLIC ACID 1 MG TABLET PO ONE (19:19)
[2023-03-12] MEDS: ATORVASTATIN 10 MG TAB PO SCH (20:27)
[2023-03-13 03:26] LABS: Protime INR 1.14
[2023-03-13] MEDS: METOPROLOL TAR 50 MG TAB PO SCH ×2 (05:37→17:01)
[2023-03-13] MEDS: INSULIN -REGULAR HUMAN 50 UNIT/0.5 ML ML SQ SCH ×4 (07:30→21:08)
[2023-03-13] MEDS: ASPIRIN EC 81 MG TAB PO SCH (09:45)
[2023-03-13] MEDS: AMLODIPINE 5 MG TAB PO SCH (09:45)
[2023-03-13] MEDS: LOSARTAN POTASSIUM 50 MG TABLET PO SCH ×2 (09:45→21:00)
[2023-03-13] MEDS: FOLIC ACID 1 MG TABLET PO SCH (09:45)
[2023-03-13] MEDS: ENOXAPARIN 40 MG/0.4 ML SQ SCH (09:45)
[2023-03-13] MEDS: CLOPIDOGREL 75 MG TABLET PO SCH (09:45)
[2023-03-13] MEDS ORDERED: DIPHENHYDRAMINE 25 MG TAB/CAP PO ONE (11:24)
--- NOTE | 2023-03-13 19:59 | P.PN ---
Subjective Date of Service: 03/13/23 Chief Complaint: Right sided weakness and dysarthria No new changes compared to yesterday. CM working on getting him placed into acute rehab. He denies any headaches, numbness/tingling, chest pain, or shortness of breath. Review of Systems 10-point ROS is otherwise unremarkable Neurological: Weakness (left-sided deficits) Physical Examination - Vital Signs Temperature: 97.2 F Blood Pressure: 146/83 Pulse: 81 Respirations: 24 Pulse Ox (%): 97 - Studies Medications List Reviewed: Yes Assessment And Plan - Plan - Physical Exam General: Alert, In no apparent distress, Oriented x3 HEENT: Atraumatic, Mucous membr. moist/pink, Sclerae nonicteric Neck: JVD not distended Respiratory: Clear to auscultation bilaterally, Normal air movement Cardiovascular: No edema, Regular rate/rhythm, Normal S1 S2, No gallops, No rubs, No murmurs Gastrointestinal: Normal bowel sounds, Soft and benign, Non-distended, No tenderness, No rebound, No guarding Musculoskeletal: No clubbing Integumentary: No rashes Neurological: Normal speech, Sensation intact, Other (left-sided facial droop noted), Abnormal speech (0/5 strength in LUE, 3-4/5 strength in LLE, 5/5 strength in RUE/RLE) NIH Stroke Scale 1a. Level of consciousness: 0 - Alert; keenly responsive 1b. LOC questions: 0 - Both questions right 1c. LOC commands: 0 - Performs both tasks 2. Best Gaze: 0 - Normal 3. Visual: 0 - No visual loss 4. Facial Palsy: 3 - unilateral complete paralysis (left) 5a. Motor left arm: 4 - no movement 5b. Motor right arm: 0 - No drift for 10 seconds 6a. Motor left le -Drift, but doesn't hit bed 6b. Motor right le - No drift for 5 seconds 7. Limb ataxia: 0 - No ataxia 8. Sensory: 0 - Normal; no sensory loss 9. Best Language: 0 - Normal; no aphasia 10. Dysarthria: 0 - Normal 11. Extinction and Inattention: 0 - No abnormality 12. Distal motor function: 0 - No abnormality Total Score: 8 # Acute Right Centrum Semiovale Cerebrovascular Accident # Hyperlipidemia - Consulted Neurology and spoke with Dr. Hughes - recommendations appreciated - NIHSS = 8 - Radiology: - Initial CT head = "1. No acute intracranial abnormality by CT criteria" - CT head angiogram = "no evidence of large vessel occlusion or flow-limiting stenosis." - CT neck angiogram = "no significant flow abnormality of the neck vessels is identified. Findings as above" - MRI brain = "right centrum semiovale acute to subacute infarct. No evidence of intracranial hemorrhage or significant mass effect." - 24 hours post-tenecteplase CT head = "known right centrum semiovale subacute infarct. No other evidence of an acute intracranial process" - Transthoracic echocardiogram = "1. normal left ventricular ejection fraction 60-65%. 2. normal wall motion. 3. grade I diastolic dysfunction. mild concentric left ventricular hypertrophy." - q4hr neurochecks - PT/OT evaluation requested - Ordered risk profile: - Hgb A1c = 10.8 % - Lipid panel = TC 191, LDL 99, HDL 42, TG 250 - TSH = 2.48 - Continue aspirin, atorvastatin, folic acid, clopidogrel # Hyperglycemia in Type II Diabetes Mellitus - Hgb A1c = 10.8 % - Correction scale insulin # Hypertension - Continue home amlodipine, metoprolol, losartan Everardo Duarte M.D.
[2023-03-13] MEDS: DOCUSATE NA 100 MG CAP PO SCH (21:08)
[2023-03-13] MEDS: ATORVASTATIN 10 MG TAB PO SCH (21:08)
[2023-03-14] MEDS: METOPROLOL TAR 50 MG TAB PO SCH ×2 (05:28→17:15)
[2023-03-14] MEDS: INSULIN -REGULAR HUMAN 50 UNIT/0.5 ML ML SQ SCH ×4 (07:30→20:56)
[2023-03-14 07:50] LABS: Potassium 3.6 mEq/L (3.5-5.1)
[2023-03-14] MEDS ORDERED: POTASSIUM CL SA 10 MEQ TAB PO ONE ×2 (08:09→21:00)
[2023-03-14] MEDS: ENOXAPARIN 40 MG/0.4 ML SQ SCH (08:43)
[2023-03-14] MEDS: DOCUSATE NA 100 MG CAP PO SCH ×2 (08:43→20:55)
[2023-03-14] MEDS: LOSARTAN POTASSIUM 50 MG TABLET PO SCH ×2 (08:43→20:55)
[2023-03-14] MEDS: ASPIRIN EC 81 MG TAB PO SCH (08:43)
[2023-03-14] MEDS: FOLIC ACID 1 MG TABLET PO SCH (08:44)
[2023-03-14] MEDS: AMLODIPINE 5 MG TAB PO SCH (08:44)
[2023-03-14] MEDS: CLOPIDOGREL 75 MG TABLET PO SCH (08:44)
--- NOTE | 2023-03-14 20:29 | P.PN ---
Subjective Date of Service: 03/14/23 Chief Complaint: Right sided weakness and dysarthria No new changes. CM working on getting him placed into acute rehab via bud. He denies any new symptoms. Review of Systems 10-point ROS is otherwise unremarkable General: Weakness (left-sided) Physical Examination - Vital Signs Temperature: 97.9 F Blood Pressure: 140/77 Pulse: 73 Respirations: 16 Pulse Ox (%): 97 - Studies Medications List Reviewed: Yes Assessment And Plan - Plan - Physical Exam General: Alert, In no apparent distress, Oriented x3 HEENT: Atraumatic, Mucous membr. moist/pink, Sclerae nonicteric Neck: JVD not distended Respiratory: Clear to auscultation bilaterally, Normal air movement Cardiovascular: No edema, Regular rate/rhythm, No murmurs Gastrointestinal: Normal bowel sounds, Soft, Non-distended, No tenderness Musculoskeletal: No clubbing Integumentary: No rashes Neurological: Normal speech, Sensation intact, Other (left-sided facial droop noted), Abnormal speech (0/5 strength in LUE, 3-4/5 strength in LLE, 5/5 strength in RUE/RLE) NIH Stroke Scale 1a. Level of consciousness: 0 - Alert; keenly responsive 1b. LOC questions: 0 - Both questions right 1c. LOC commands: 0 - Performs both tasks 2. Best Gaze: 0 - Normal 3. Visual: 0 - No visual loss 4. Facial Palsy: 3 - unilateral complete paralysis (left) 5a. Motor left arm: 4 - no movement 5b. Motor right arm: 0 - No drift for 10 seconds 6a. Motor left le -Drift, but doesn't hit bed 6b. Motor right le - No drift for 5 seconds 7. Limb ataxia: 0 - No ataxia 8. Sensory: 0 - Normal; no sensory loss 9. Best Language: 0 - Normal; no aphasia 10. Dysarthria: 0 - Normal 11. Extinction and Inattention: 0 - No abnormality 12. Distal motor function: 0 - No abnormality Total Score: 8 # Acute Right Centrum Semiovale Cerebrovascular Accident # Hyperlipidemia - Consulted Neurology and spoke with Dr. Michel - recommendations appreciated - NIHSS = 8 - Radiology: - Initial CT head = "1. No acute intracranial abnormality by CT criteria" - CT head angiogram = "no evidence of large vessel occlusion or flow-limiting stenosis." - CT neck angiogram = "no significant flow abnormality of the neck vessels is identified. Findings as above" - MRI brain = "right centrum semiovale acute to subacute infarct. No evidence of intracranial hemorrhage or significant mass effect." - 24 hours post-tenecteplase CT head = "known right centrum semiovale subacute infarct. No other evidence of an acute intracranial process" - Transthoracic echocardiogram = "1. normal left ventricular ejection fraction 60-65%. 2. normal wall motion. 3. grade I diastolic dysfunction. mild concentric left ventricular hypertrophy." - q4hr neurochecks - PT/OT evaluation requested - Ordered risk profile: - Hgb A1c = 10.8 % - Lipid panel = TC 191, LDL 99, HDL 42, TG 250 - TSH = 2.48 - Continue aspirin, atorvastatin, folic acid, clopidogrel - Appreciate CM assistance with placement into acute inpatient rehab # Hyperglycemia in Type II Diabetes Mellitus - Hgb A1c = 10.8 % - Correction scale insulin # Hypertension - Continue home amlodipine, metoprolol, losartan Everardo Duarte M.D.
[2023-03-14] MEDS: ATORVASTATIN 10 MG TAB PO SCH (20:55)
[2023-03-15] MEDS: METOPROLOL TAR 50 MG TAB PO SCH ×2 (05:45→17:07)
[2023-03-15] MEDS: LOSARTAN POTASSIUM 50 MG TABLET PO SCH ×2 (08:30→21:00)
[2023-03-15] MEDS: AMLODIPINE 5 MG TAB PO SCH (08:30)
[2023-03-15] MEDS: FOLIC ACID 1 MG TABLET PO SCH (08:51)
[2023-03-15] MEDS: CLOPIDOGREL 75 MG TABLET PO SCH (08:51)
[2023-03-15] MEDS: ASPIRIN EC 81 MG TAB PO SCH (08:51)
[2023-03-15] MEDS: DOCUSATE NA 100 MG CAP PO SCH ×2 (08:51→21:26)
[2023-03-15] MEDS: INSULIN -REGULAR HUMAN 50 UNIT/0.5 ML ML SQ SCH ×4 (08:52→21:26)
[2023-03-15] MEDS: ENOXAPARIN 40 MG/0.4 ML SQ SCH (08:52)
[2023-03-15] MEDS ORDERED: POLYETHYL GLY 3350 17 GM/DOSE PO ONE (19:59)
[2023-03-15] MEDS: ATORVASTATIN 10 MG TAB PO SCH (21:26)
--- NOTE | 2023-03-15 22:17 | P.PN ---
Subjective Date of Service: 03/15/23 Chief Complaint: Right sided weakness and dysarthria No new changes. He denies any new symptoms this morning. He has been working well with PT. Review of Systems 10-point ROS is otherwise unremarkable General: Weakness (left-sided) Physical Examination - Vital Signs Temperature: 97.1 F Blood Pressure: 164/78 Pulse: 74 Respirations: 18 Pulse Ox (%): 97 - Studies Medications List Reviewed: Yes Assessment And Plan - Plan - Physical Exam General: Alert, In no apparent distress, Oriented x3 HEENT: Atraumatic, Mucous membr. moist/pink, Sclerae nonicteric Neck: JVD not distended Respiratory: Clear to auscultation bilaterally, Normal air movement Cardiovascular: No edema, Regular rate/rhythm, No murmurs Gastrointestinal: Normal bowel sounds, Soft, Non-distended, No tenderness Musculoskeletal: No clubbing Integumentary: No rashes Neurological: Normal speech, Sensation intact, Other (left-sided facial droop noted), Abnormal speech (0/5 strength in LUE, 3-4/5 strength in LLE, 5/5 strength in RUE/RLE) NIH Stroke Scale 1a. Level of consciousness: 0 - Alert; keenly responsive 1b. LOC questions: 0 - Both questions right 1c. LOC commands: 0 - Performs both tasks 2. Best Gaze: 0 - Normal 3. Visual: 0 - No visual loss 4. Facial Palsy: 3 - unilateral complete paralysis (left) 5a. Motor left arm: 4 - no movement 5b. Motor right arm: 0 - No drift for 10 seconds 6a. Motor left le -Drift, but doesn't hit bed 6b. Motor right le - No drift for 5 seconds 7. Limb ataxia: 0 - No ataxia 8. Sensory: 0 - Normal; no sensory loss 9. Best Language: 0 - Normal; no aphasia 10. Dysarthria: 0 - Normal 11. Extinction and Inattention: 0 - No abnormality 12. Distal motor function: 0 - No abnormality Total Score: 8 # Acute Right Centrum Semiovale Cerebrovascular Accident # Hyperlipidemia - Consulted Neurology and spoke with Dr. Michel - recommendations appreciated - NIHSS = 8 - Radiology: - Initial CT head = "1. No acute intracranial abnormality by CT criteria" - CT head angiogram = "no evidence of large vessel occlusion or flow-limiting stenosis." - CT neck angiogram = "no significant flow abnormality of the neck vessels is identified. Findings as above" - MRI brain = "right centrum semiovale acute to subacute infarct. No evidence of intracranial hemorrhage or significant mass effect." - 24 hours post-tenecteplase CT head = "known right centrum semiovale subacute infarct. No other evidence of an acute intracranial process" - Transthoracic echocardiogram = "1. normal left ventricular ejection fraction 60-65%. 2. normal wall motion. 3. grade I diastolic dysfunction. mild concentric left ventricular hypertrophy." - q4hr neurochecks - PT/OT evaluation requested - appreciate CM assistance with placement into acute inpatient rehab - Ordered risk profile: - Hgb A1c = 10.8 % - Lipid panel = TC 191, LDL 99, HDL 42, TG 250 - TSH = 2.48 - Continue aspirin, atorvastatin, folic acid, clopidogrel # Hyperglycemia in Type II Diabetes Mellitus - Hgb A1c = 10.8 % - Correction scale insulin # Hypertension - Continue home amlodipine, metoprolol, losartan Everardo Duarte M.D.
[2023-03-16] MEDS: METOPROLOL TAR 50 MG TAB PO SCH ×2 (06:00→17:15)
[2023-03-16] MEDS: INSULIN -REGULAR HUMAN 50 UNIT/0.5 ML ML SQ SCH ×4 (07:30→20:45)
[2023-03-16] MEDS: AMLODIPINE 5 MG TAB PO SCH (08:46)
[2023-03-16] MEDS: LOSARTAN POTASSIUM 50 MG TABLET PO SCH ×2 (08:46→20:44)
[2023-03-16] MEDS: FOLIC ACID 1 MG TABLET PO SCH (08:49)
[2023-03-16] MEDS: ENOXAPARIN 40 MG/0.4 ML SQ SCH (08:49)
[2023-03-16] MEDS: CLOPIDOGREL 75 MG TABLET PO SCH (08:49)
[2023-03-16] MEDS: ASPIRIN EC 81 MG TAB PO SCH (08:49)
[2023-03-16] MEDS: DOCUSATE NA 100 MG CAP PO SCH ×2 (08:49→20:44)
[2023-03-16] MEDS: ATORVASTATIN 10 MG TAB PO SCH (20:44)
--- NOTE | 2023-03-17 00:06 | P.PN ---
Subjective Date of Service: 03/17/23 Chief Complaint: Right sided weakness and dysarthria No new changes. He has been working well with PT. Appreciate CM assistance with placement. Review of Systems 10-point ROS is otherwise unremarkable General: Weakness (left-sided) Physical Examination - Vital Signs Temperature: 97.3 F Blood Pressure: 162/80 Pulse: 91 Respirations: 16 Pulse Ox (%): 97 - Studies Medications List Reviewed: Yes Assessment And Plan - Plan - Physical Exam General: Alert, In no apparent distress, Oriented x3 HEENT: Atraumatic, Mucous membr. moist/pink, Sclerae nonicteric Neck: JVD not distended Respiratory: Clear to auscultation bilaterally, Normal air movement Cardiovascular: No edema, Regular rate/rhythm, No murmurs Gastrointestinal: Normal bowel sounds, Soft, Non-distended, No tenderness Musculoskeletal: No clubbing Integumentary: No rashes Neurological: Normal speech, Sensation intact, Other (left-sided facial droop noted), Abnormal speech (0/5 strength in LUE, 3-4/5 strength in LLE, 5/5 strength in RUE/RLE) NIH Stroke Scale 1a. Level of consciousness: 0 - Alert; keenly responsive 1b. LOC questions: 0 - Both questions right 1c. LOC commands: 0 - Performs both tasks 2. Best Gaze: 0 - Normal 3. Visual: 0 - No visual loss 4. Facial Palsy: 3 - unilateral complete paralysis (left) 5a. Motor left arm: 4 - no movement 5b. Motor right arm: 0 - No drift for 10 seconds 6a. Motor left le -Drift, but doesn't hit bed 6b. Motor right le - No drift for 5 seconds 7. Limb ataxia: 0 - No ataxia 8. Sensory: 0 - Normal; no sensory loss 9. Best Language: 0 - Normal; no aphasia 10. Dysarthria: 0 - Normal 11. Extinction and Inattention: 0 - No abnormality 12. Distal motor function: 0 - No abnormality Total Score: 8 # Acute Right Centrum Semiovale Cerebrovascular Accident # Hyperlipidemia - Consulted Neurology and spoke with Dr. Michel - recommendations appreciated - NIHSS = 8 - Radiology: - Initial CT head = "1. No acute intracranial abnormality by CT criteria" - CT head angiogram = "no evidence of large vessel occlusion or flow-limiting stenosis." - CT neck angiogram = "no significant flow abnormality of the neck vessels is identified. Findings as above" - MRI brain = "right centrum semiovale acute to subacute infarct. No evidence of intracranial hemorrhage or significant mass effect." - 24 hours post-tenecteplase CT head = "known right centrum semiovale subacute infarct. No other evidence of an acute intracranial process" - Transthoracic echocardiogram = "1. normal left ventricular ejection fraction 60-65%. 2. normal wall motion. 3. grade I diastolic dysfunction. mild concentric left ventricular hypertrophy." - q4hr neurochecks - PT/OT evaluation requested - appreciate CM assistance with placement into acute inpatient rehab - Ordered risk profile: - Hgb A1c = 10.8 % - Lipid panel = TC 191, LDL 99, HDL 42, TG 250 - TSH = 2.48 - Continue aspirin, atorvastatin, folic acid, clopidogrel # Hyperglycemia in Type II Diabetes Mellitus - Hgb A1c = 10.8 % - Correction scale insulin # Hypertension - Continue home amlodipine, metoprolol, losartan 03/16: Working well with PT. Appreciate CM assistance with placement. Everardo Duarte M.D.
[2023-03-17] MEDS: METOPROLOL TAR 50 MG TAB PO SCH ×2 (06:00→17:10)
[2023-03-17] MEDS: INSULIN -REGULAR HUMAN 50 UNIT/0.5 ML ML SQ SCH ×4 (07:30→20:54)
[2023-03-17] MEDS: DOCUSATE NA 100 MG CAP PO SCH ×2 (09:09→20:54)
[2023-03-17] MEDS: AMLODIPINE 5 MG TAB PO SCH (09:09)
[2023-03-17] MEDS: ASPIRIN EC 81 MG TAB PO SCH (09:09)
[2023-03-17] MEDS: CLOPIDOGREL 75 MG TABLET PO SCH (09:10)
[2023-03-17] MEDS: FOLIC ACID 1 MG TABLET PO SCH (09:15)
[2023-03-17] MEDS: LOSARTAN POTASSIUM 50 MG TABLET PO SCH ×2 (09:16→20:54)
[2023-03-17] MEDS ORDERED: SENOSIDES 8.6 MG TAB PO PRN (09:20)
[2023-03-17] MEDS: ENOXAPARIN 40 MG/0.4 ML SQ SCH (09:22)
[2023-03-17] MEDS ORDERED: BISACODYL 10 MG RECTAL SUPP PR PRN (13:41)
--- NOTE | 2023-03-17 13:51 | P.PN ---
Subjective Date of Service: 03/17/23 Chief Complaint: Right sided weakness and dysarthria No new changes. He reports constipation and requests a suppository. He has been working well with PT. He is working with business office to arrange placement to inpatient rehab. Review of Systems 10-point ROS is otherwise unremarkable General: Weakness (left-sided) Gastrointestinal: Constipation Physical Examination - Vital Signs Temperature: 97.2 F Blood Pressure: 152/82 Pulse: 74 Respirations: 14 Pulse Ox (%): 97 - Studies Medications List Reviewed: Yes Assessment And Plan - Plan - Physical Exam General: Alert, In no apparent distress, Oriented x3 HEENT: Atraumatic, Mucous membr. moist/pink, Sclerae nonicteric Respiratory: Clear to auscultation bilaterally, Normal air movement Cardiovascular: No edema, Regular rate/rhythm, No murmurs Gastrointestinal: Hypoactive bowel sounds, Soft, Non-distended, No tenderness Musculoskeletal: No clubbing Integumentary: No rashes Neurological: Normal speech, Sensation intact, Other (left-sided facial droop noted), Abnormal speech (0/5 strength in LUE, 3-4/5 strength in LLE, 5/5 strength in RUE/RLE) NIH Stroke Scale 1a. Level of consciousness: 0 - Alert; keenly responsive 1b. LOC questions: 0 - Both questions right 1c. LOC commands: 0 - Performs both tasks 2. Best Gaze: 0 - Normal 3. Visual: 0 - No visual loss 4. Facial Palsy: 3 - unilateral complete paralysis (left) 5a. Motor left arm: 4 - no movement 5b. Motor right arm: 0 - No drift for 10 seconds 6a. Motor left le -Drift, but doesn't hit bed 6b. Motor right le - No drift for 5 seconds 7. Limb ataxia: 0 - No ataxia 8. Sensory: 0 - Normal; no sensory loss 9. Best Language: 0 - Normal; no aphasia 10. Dysarthria: 0 - Normal 11. Extinction and Inattention: 0 - No abnormality 12. Distal motor function: 0 - No abnormality Total Score: 8 # Acute Right Centrum Semiovale Cerebrovascular Accident # Hyperlipidemia - Consulted Neurology and spoke with Dr. Michel - recommendations appreciated - NIHSS = 8 - Radiology: - Initial CT head = "1. No acute intracranial abnormality by CT criteria" - CT head angiogram = "no evidence of large vessel occlusion or flow-limiting stenosis." - CT neck angiogram = "no significant flow abnormality of the neck vessels is identified. Findings as above" - MRI brain = "right centrum semiovale acute to subacute infarct. No evidence of intracranial hemorrhage or significant mass effect." - 24 hours post-tenecteplase CT head = "known right centrum semiovale subacute infarct. No other evidence of an acute intracranial process" - Transthoracic echocardiogram = "1. normal left ventricular ejection fraction 60-65%. 2. normal wall motion. 3. grade I diastolic dysfunction. mild concentric left ventricular hypertrophy." - q4hr neurochecks - PT/OT evaluation requested - appreciate CM assistance with placement into acute inpatient rehab - Ordered risk profile: - Hgb A1c = 10.8 % - Lipid panel = TC 191, LDL 99, HDL 42, TG 250 - TSH = 2.48 - Continue aspirin, atorvastatin, folic acid, clopidogrel # Hyperglycemia in Type II Diabetes Mellitus - Hgb A1c = 10.8 % - Correction scale insulin # Hypertension - Continue home amlodipine, metoprolol, losartan 03/16: Working well with PT. Appreciate CM assistance with placement. 03/17: Working well with PT. Working with business office to arrange inpatient rehab placement. Everardo Duarte M.D.
[2023-03-17] MEDS: ATORVASTATIN 10 MG TAB PO SCH (20:54)
[2023-03-18] MEDS: METOPROLOL TAR 50 MG TAB PO SCH ×2 (05:32→17:23)
[2023-03-18] MEDS: INSULIN -REGULAR HUMAN 50 UNIT/0.5 ML ML SQ SCH ×4 (07:30→21:00)
[2023-03-18] MEDS: ENOXAPARIN 40 MG/0.4 ML SQ SCH (08:14)
[2023-03-18] MEDS: AMLODIPINE 5 MG TAB PO SCH (08:15)
[2023-03-18] MEDS: DOCUSATE NA 100 MG CAP PO SCH ×2 (08:15→21:00)
[2023-03-18] MEDS: ASPIRIN EC 81 MG TAB PO SCH (08:15)
[2023-03-18] MEDS: CLOPIDOGREL 75 MG TABLET PO SCH (08:16)
[2023-03-18] MEDS: FOLIC ACID 1 MG TABLET PO SCH (08:16)
[2023-03-18] MEDS: LOSARTAN POTASSIUM 50 MG TABLET PO SCH ×2 (08:16→21:00)
--- NOTE | 2023-03-18 18:20 | P.PN ---
Subjective Date of Service: 03/18/23 Chief Complaint: Right sided weakness and dysarthria No new changes. He is planning to speak with business office tomorrow morning to arrange placement to inpatient rehab. Review of Systems 10-point ROS is otherwise unremarkable General: Weakness (left-sided) Physical Examination - Vital Signs Temperature: 97.6 F Blood Pressure: 157/89 Pulse: 81 Respirations: 16 Pulse Ox (%): 95 - Studies Medications List Reviewed: Yes Assessment And Plan - Plan - Physical Exam General: Alert, In no apparent distress, Oriented x3 HEENT: Atraumatic, Mucous membr. moist/pink, Sclerae nonicteric Respiratory: Clear to auscultation bilaterally, Normal air movement Cardiovascular: No edema, Regular rate/rhythm, No murmurs Gastrointestinal: Hypoactive bowel sounds, Soft, Non-distended, No tenderness Musculoskeletal: No clubbing Integumentary: No rashes Neurological: Normal speech, Sensation intact, Other (left-sided facial droop noted), Abnormal speech (0/5 strength in LUE, 3-4/5 strength in LLE, 5/5 strength in RUE/RLE) NIH Stroke Scale 1a. Level of consciousness: 0 - Alert; keenly responsive 1b. LOC questions: 0 - Both questions right 1c. LOC commands: 0 - Performs both tasks 2. Best Gaze: 0 - Normal 3. Visual: 0 - No visual loss 4. Facial Palsy: 3 - unilateral complete paralysis (left) 5a. Motor left arm: 4 - no movement 5b. Motor right arm: 0 - No drift for 10 seconds 6a. Motor left le -Drift, but doesn't hit bed 6b. Motor right le - No drift for 5 seconds 7. Limb ataxia: 0 - No ataxia 8. Sensory: 0 - Normal; no sensory loss 9. Best Language: 0 - Normal; no aphasia 10. Dysarthria: 0 - Normal 11. Extinction and Inattention: 0 - No abnormality 12. Distal motor function: 0 - No abnormality Total Score: 8 # Acute Right Centrum Semiovale Cerebrovascular Accident # Hyperlipidemia - Consulted Neurology and spoke with Dr. Michel - recommendations appreciated - NIHSS = 8 - Radiology: - Initial CT head = "1. No acute intracranial abnormality by CT criteria" - CT head angiogram = "no evidence of large vessel occlusion or flow-limiting stenosis." - CT neck angiogram = "no significant flow abnormality of the neck vessels is identified. Findings as above" - MRI brain = "right centrum semiovale acute to subacute infarct. No evidence of intracranial hemorrhage or significant mass effect." - 24 hours post-tenecteplase CT head = "known right centrum semiovale subacute infarct. No other evidence of an acute intracranial process" - Transthoracic echocardiogram = "1. normal left ventricular ejection fracti on 60-65%. 2. normal wall motion. 3. grade I diastolic dysfunction. mild concentric left ventricular hypertrophy." - q4hr neurochecks - PT/OT evaluation requested - appreciate CM assistance with placement into acute inpatient rehab - Ordered risk profile: - Hgb A1c = 10.8 % - Lipid panel = TC 191, LDL 99, HDL 42, TG 250 - TSH = 2.48 - Continue aspirin, atorvastatin, folic acid, clopidogrel # Hyperglycemia in Type II Diabetes Mellitus - Hgb A1c = 10.8 % - Correction scale insulin # Hypertension - Continue home amlodipine, metoprolol, losartan 03/16: Working well with PT. Appreciate CM assistance with placement. 03/17: Working well with PT. Working with business office to arrange inpatient rehab placement. 03/18: He is planning to speak with business office tomorrow morning to arrange inpatient rehab placement. Everardo Duarte M.D.
--- NOTE | 2023-03-18 20:42 | P.PN ---
Date of Service: 03/19/23 Subjective Patient continues to slowly improve with no new complaints. Patient still with weakness on the left side of his upper extremity but he is working. May need to try and see if we can get bud rehab. Family is also working on [facility] benefits. Review of Systems 10-point ROS is otherwise unremarkable Physical Examination - Vital Signs Reviewed - Physical Exam General: Alert, In no apparent distress, Oriented x3 Respiratory: Clear to auscultation bilaterally, Normal air movement Cardiovascular: Regular rate/rhythm, Normal S1 S2, No murmurs Gastrointestinal: Normal bowel sounds, Soft and benign, Non-distended, No tenderness Musculoskeletal: No clubbing, No swelling, No tenderness Neurological: Patient left-sided weakness; gait abnormality; 0 out of 5 with gravity on the left upper extremity Assessment & Plan - Problems (Diagnosis) (1) Lacunar infarct, acute Current Visit: Yes Status: Acute (2) HTN (hypertension) Current Visit: Yes Status: Acute (3) Dyslipidemia Current Visit: Yes Status: Acute (4) DM2 (diabetes mellitus, type 2) Current Visit: Yes Status: Acute - Plan Continue with plan of care as mentioned below: 1. MRI of the brain with acute infarct; repeat CT scan with no new abnormality; patient with centrum semiovale ovale infarct s/p TNK; Patient's long-term prognosis remains poor. 2. Antiplatelet and statin therapy 3. Lipid profile shows LDL to be 99 4. Physical therapy and speech therapy/OT appreciated 5. DVT prophylaxis 6. BP control 7. GI and DVT prophylaxis - Code Status/Comfort Care Code Status: Full Code Critical Care: No Time Spent Managing PTS Care (In Minutes): 35
[2023-03-18] MEDS: ATORVASTATIN 10 MG TAB PO SCH (21:18)
[2023-03-19] MEDS: METOPROLOL TAR 50 MG TAB PO SCH ×2 (05:29→18:00)
[2023-03-19] MEDS: DOCUSATE NA 100 MG CAP PO SCH ×2 (08:46→21:36)
[2023-03-19] MEDS: CLOPIDOGREL 75 MG TABLET PO SCH (08:47)
[2023-03-19] MEDS: ASPIRIN EC 81 MG TAB PO SCH (08:47)
[2023-03-19] MEDS: ENOXAPARIN 40 MG/0.4 ML SQ SCH (08:47)
[2023-03-19] MEDS: FOLIC ACID 1 MG TABLET PO SCH (08:47)
[2023-03-19] MEDS: INSULIN -REGULAR HUMAN 50 UNIT/0.5 ML ML SQ SCH ×4 (08:52→21:00)
[2023-03-19] MEDS: AMLODIPINE 5 MG TAB PO SCH (08:59)
[2023-03-19] MEDS: LOSARTAN POTASSIUM 50 MG TABLET PO SCH ×2 (08:59→21:36)
[2023-03-19] MEDS: ATORVASTATIN 10 MG TAB PO SCH (21:36)
[2023-03-20] MEDS: METOPROLOL TAR 50 MG TAB PO SCH ×2 (05:39→17:33)
[2023-03-20] MEDS: INSULIN -REGULAR HUMAN 50 UNIT/0.5 ML ML SQ SCH ×4 (07:30→21:11)
[2023-03-20] MEDS: FOLIC ACID 1 MG TABLET PO SCH (08:56)
[2023-03-20] MEDS: CLOPIDOGREL 75 MG TABLET PO SCH (08:56)
[2023-03-20] MEDS: DOCUSATE NA 100 MG CAP PO SCH ×2 (08:56→21:10)
[2023-03-20] MEDS: ASPIRIN EC 81 MG TAB PO SCH (08:56)
[2023-03-20] MEDS: ENOXAPARIN 40 MG/0.4 ML SQ SCH (08:57)
[2023-03-20] MEDS: AMLODIPINE 5 MG TAB PO SCH (08:57)
[2023-03-20] MEDS: LOSARTAN POTASSIUM 50 MG TABLET PO SCH ×2 (08:57→21:10)
[2023-03-20] MEDS: ATORVASTATIN 10 MG TAB PO SCH (21:10)
[2023-03-21] MEDS: METOPROLOL TAR 50 MG TAB PO SCH ×2 (06:00→17:49)
[2023-03-21] MEDS: INSULIN -REGULAR HUMAN 50 UNIT/0.5 ML ML SQ SCH ×4 (07:30→20:43)
[2023-03-21] MEDS: ASPIRIN EC 81 MG TAB PO SCH (09:50)
[2023-03-21] MEDS: FOLIC ACID 1 MG TABLET PO SCH (09:50)
[2023-03-21] MEDS: DOCUSATE NA 100 MG CAP PO SCH ×2 (09:51→20:44)
[2023-03-21] MEDS: LOSARTAN POTASSIUM 50 MG TABLET PO SCH ×2 (09:51→20:44)
[2023-03-21] MEDS: ENOXAPARIN 40 MG/0.4 ML SQ SCH (09:51)
[2023-03-21] MEDS: CLOPIDOGREL 75 MG TABLET PO SCH (09:51)
[2023-03-21] MEDS: AMLODIPINE 5 MG TAB PO SCH (09:51)
[2023-03-21] MEDS: ATORVASTATIN 10 MG TAB PO SCH (20:44)
[2023-03-22] MEDS: METOPROLOL TAR 50 MG TAB PO SCH ×2 (05:15→18:00)
[2023-03-22] MEDS: INSULIN -REGULAR HUMAN 50 UNIT/0.5 ML ML SQ SCH ×4 (08:31→21:09)
[2023-03-22] MEDS: LOSARTAN POTASSIUM 50 MG TABLET PO SCH ×2 (08:32→21:10)
[2023-03-22] MEDS: FOLIC ACID 1 MG TABLET PO SCH (08:32)
[2023-03-22] MEDS: DOCUSATE NA 100 MG CAP PO SCH ×2 (08:32→21:10)
[2023-03-22] MEDS: CLOPIDOGREL 75 MG TABLET PO SCH (08:32)
[2023-03-22] MEDS: AMLODIPINE 5 MG TAB PO SCH (08:32)
[2023-03-22] MEDS: ASPIRIN EC 81 MG TAB PO SCH (08:32)
[2023-03-22] MEDS: ENOXAPARIN 40 MG/0.4 ML SQ SCH (08:33)
[2023-03-22] MEDS ORDERED: METHYLPREDNISOLONE 40 MG INJ IV SCH (18:00)
[2023-03-22] MEDS: ATORVASTATIN 10 MG TAB PO SCH (21:10)
[2023-03-23] MEDS: DIPHENHYDRAMINE 25 MG TAB/CAP PO PRN ×2 (00:58→17:22)
[2023-03-23] MEDS: METOPROLOL TAR 50 MG TAB PO SCH ×2 (06:35→18:00)
[2023-03-23] MEDS: INSULIN -REGULAR HUMAN 50 UNIT/0.5 ML ML SQ SCH ×4 (07:30→20:50)
[2023-03-23] MEDS: CLOPIDOGREL 75 MG TABLET PO SCH (08:44)
[2023-03-23] MEDS: ASPIRIN EC 81 MG TAB PO SCH (08:44)
[2023-03-23] MEDS: AMLODIPINE 5 MG TAB PO SCH (08:44)
[2023-03-23] MEDS: LOSARTAN POTASSIUM 50 MG TABLET PO SCH ×2 (08:44→20:50)
[2023-03-23] MEDS: ENOXAPARIN 40 MG/0.4 ML SQ SCH (08:45)
[2023-03-23] MEDS: DOCUSATE NA 100 MG CAP PO SCH ×2 (08:45→20:50)
[2023-03-23] MEDS: FOLIC ACID 1 MG TABLET PO SCH (08:45)
[2023-03-23] MEDS: ATORVASTATIN 10 MG TAB PO SCH (20:50)
[2023-03-24] MEDS: DIPHENHYDRAMINE 25 MG TAB/CAP PO PRN ×2 (00:20→23:58)
[2023-03-24] MEDS: METOPROLOL TAR 50 MG TAB PO SCH ×2 (06:00→17:13)
[2023-03-24] MEDS: INSULIN -REGULAR HUMAN 50 UNIT/0.5 ML ML SQ SCH ×4 (07:30→20:47)
[2023-03-24] MEDS: FOLIC ACID 1 MG TABLET PO SCH (08:42)
[2023-03-24] MEDS: DOCUSATE NA 100 MG CAP PO SCH ×2 (08:42→20:47)
[2023-03-24] MEDS: LOSARTAN POTASSIUM 50 MG TABLET PO SCH ×2 (08:42→20:47)
[2023-03-24] MEDS: ASPIRIN EC 81 MG TAB PO SCH (08:42)
[2023-03-24] MEDS: AMLODIPINE 5 MG TAB PO SCH (08:42)
[2023-03-24] MEDS: CLOPIDOGREL 75 MG TABLET PO SCH (08:42)
[2023-03-24] MEDS: ENOXAPARIN 40 MG/0.4 ML SQ SCH (08:42)
[2023-03-24] MEDS ORDERED: BISACODYL E.C. 5 MG TAB PO ONE (13:15)
[2023-03-24] MEDS: ATORVASTATIN 10 MG TAB PO SCH (20:47)
--- NOTE | 2023-03-25 04:26 | P.PN ---
Date of Service: 03/20/23 Subjective Patient doing well no new complaints. Patient deciding on inpatient rehab. Patient does not have any insurance. Will try to get him approved for discharge in the morning to rehab. Review of Systems 10-point ROS is otherwise unremarkable Physical Examination - Vital Signs Reviewed - Physical Exam General: Alert, In no apparent distress, Oriented x3 Respiratory: Clear to auscultation bilaterally, Normal air movement Cardiovascular: Regular rate/rhythm, Normal S1 S2, No murmurs Gastrointestinal: Normal bowel sounds, Soft and benign, Non-distended, No tenderness Musculoskeletal: No clubbing, No swelling, No tenderness Neurological: Patient left-sided weakness; gait abnormality; 0 out of 5 with gravity on the left upper extremity; 3/5 lower extremity Assessment & Plan - Problems (Diagnosis) (1) Lacunar infarct, acute Current Visit: Yes Status: Acute (2) HTN (hypertension) Current Visit: Yes Status: Acute (3) Dyslipidemia Current Visit: Yes Status: Acute (4) DM2 (diabetes mellitus, type 2) Current Visit: Yes Status: Acute - Plan Continue with plan of care as mentioned below: 1. MRI of the brain with acute infarct; repeat CT scan with no new abnormality; patient with centrum semiovale ovale infarct s/p TNK; Patient's long-term prognosis remains poor. 2. Antiplatelet and statin therapy 3. Lipid profile shows LDL to be 99 4. Physical therapy and speech therapy/OT appreciated 5. DVT prophylaxis 6. BP control 7. GI and DVT prophylaxis - Code Status/Comfort Care Code Status: Full Code Critical Care: No Time Spent Managing PTS Care (In Minutes): 35
--- NOTE | 2023-03-25 04:28 | P.PN ---
Date of Service: 03/21/23 Subjective Patient unable to pay for inpatient rehab as he was not approved for [facility] [place]. Will try to get information for outpatient rehab or outpatient home health with physical therapy. Review of Systems 10-point ROS is otherwise unremarkable Physical Examination - Vital Signs Reviewed - Physical Exam General: Alert, In no apparent distress, Oriented x3 Respiratory: Clear to auscultation bilaterally, Normal air movement Cardiovascular: Regular rate/rhythm, Normal S1 S2, No murmurs Gastrointestinal: Normal bowel sounds, Soft and benign, Non-distended, No tenderness Musculoskeletal: No clubbing, No swelling, No tenderness Neurological: Patient left-sided weakness; gait abnormality; 0 out of 5 with gravity on the left upper extremity; 3/5 lower extremity Assessment & Plan - Problems (Diagnosis) (1) Lacunar infarct, acute Current Visit: Yes Status: Acute (2) HTN (hypertension) Current Visit: Yes Status: Acute (3) Dyslipidemia Current Visit: Yes Status: Acute (4) DM2 (diabetes mellitus, type 2) Current Visit: Yes Status: Acute - Plan Continue with plan of care as mentioned below: 1. MRI of the brain with acute infarct; patient with centrum semiovale ovale infarct s/p TNK; Patient's long-term prognosis for neurological recovery will be determined over the course of the next few months. 2. Antiplatelet and statin therapy 3. Lipid profile shows LDL to be 99 4. Physical therapy and speech therapy/OT appreciated 5. DVT prophylaxis 6. BP control 7. GI and DVT prophylaxis - Code Status/Comfort Care Code Status: Full Code Critical Care: No Time Spent Managing PTS Care (In Minutes): 35
--- NOTE | 2023-03-25 04:29 | P.PN ---
Date of Service: 03/22/23 Subjective Continue with current plan of care. Awaiting for pricing of outpatient rehab and home health with physical therapy. Review of Systems 10-point ROS is otherwise unremarkable Physical Examination - Vital Signs Reviewed - Physical Exam General: Alert, In no apparent distress, Oriented x3 Neurological: Patient left-sided weakness; gait abnormality; 0 out of 5 with gravity on the left upper extremity; 3/5 lower extremity Assessment & Plan - Problems (Diagnosis) (1) Lacunar infarct, acute Current Visit: Yes Status: Acute (2) HTN (hypertension) Current Visit: Yes Status: Acute (3) Dyslipidemia Current Visit: Yes Status: Acute (4) DM2 (diabetes mellitus, type 2) Current Visit: Yes Status: Acute - Plan No changes in the plan of care at this time: 1. MRI of the brain with acute infarct; patient with centrum semiovale ovale infarct s/p TNK; Patient's long-term prognosis for neurological recovery will be determined over the course of the next few months. 2. Antiplatelet and statin therapy 3. Lipid profile shows LDL to be 99 4. Physical therapy and speech therapy/OT appreciated 5. DVT prophylaxis 6. BP control 7. GI and DVT prophylaxis - Code Status/Comfort Care Code Status: Full Code Critical Care: No Time Spent Managing PTS Care (In Minutes): 35
--- NOTE | 2023-03-25 04:31 | P.PN ---
Date of Service: 03/24/23 Subjective Patient is doing well with no new complaints. Review of Systems 10-point ROS is otherwise unremarkable Physical Examination - Vital Signs Reviewed - Physical Exam General: Alert, In no apparent distress, Oriented x3 Neurological: Patient left-sided weakness; gait abnormality; 0 out of 5 with gravity on the left upper extremity; 3/5 lower extremity Assessment & Plan - Problems (Diagnosis) (1) Lacunar infarct, acute Current Visit: Yes Status: Acute (2) HTN (hypertension) Current Visit: Yes Status: Acute (3) Dyslipidemia Current Visit: Yes Status: Acute (4) DM2 (diabetes mellitus, type 2) Current Visit: Yes Status: Acute - Plan No changes in the plan of care at this time: 1. MRI of the brain with acute infarct; patient with centrum semiovale ovale infarct s/p TNK; Patient's long-term prognosis for neurological recovery will be determined over the course of the next few months. 2. Antiplatelet and statin therapy 3. Lipid profile shows LDL to be 99 4. Physical therapy and speech therapy/OT appreciated 5. DVT prophylaxis 6. BP control 7. GI and DVT prophylaxis - Code Status/Comfort Care Code Status: Full Code Critical Care: No Time Spent Managing PTS Care (In Minutes): 35
--- NOTE | 2023-03-25 04:31 | P.PN ---
Date of Service: 03/23/23 Subjective Continue with current plan of care. Unable to afford outpatient physical therapy or home health with physical therapy according the patient. Insurance will start March 27. Will continue to strengthen him up as he did fall yesterday. Anticipate discharge over the next 48-72 hours. Review of Systems 10-point ROS is otherwise unremarkable Physical Examination - Vital Signs Reviewed - Physical Exam General: Alert, In no apparent distress, Oriented x3 Neurological: Patient left-sided weakness; gait abnormality; 0 out of 5 with gravity on the left upper extremity; 3/5 lower extremity Assessment & Plan - Problems (Diagnosis) (1) Lacunar infarct, acute Current Visit: Yes Status: Acute (2) HTN (hypertension) Current Visit: Yes Status: Acute (3) Dyslipidemia Current Visit: Yes Status: Acute (4) DM2 (diabetes mellitus, type 2) Current Visit: Yes Status: Acute - Plan No changes in the plan of care at this time: 1. MRI of the brain with acute infarct; patient with centrum semiovale ovale in farct s/p TNK; Patient's long-term prognosis for neurological recovery will be determined over the course of the next few months. 2. Antiplatelet and statin therapy 3. Lipid profile shows LDL to be 99 4. Physical therapy and speech therapy/OT appreciated 5. DVT prophylaxis 6. BP control 7. GI and DVT prophylaxis - Code Status/Comfort Care Code Status: Full Code Critical Care: No Time Spent Managing PTS Care (In Minutes): 35
[2023-03-25] MEDS: METOPROLOL TAR 50 MG TAB PO SCH ×2 (06:00→17:05)
[2023-03-25] MEDS: INSULIN -REGULAR HUMAN 50 UNIT/0.5 ML ML SQ SCH ×4 (07:30→20:31)
[2023-03-25] MEDS: DOCUSATE NA 100 MG CAP PO SCH ×2 (09:00→20:29)
[2023-03-25] MEDS: LOSARTAN POTASSIUM 50 MG TABLET PO SCH ×2 (09:07→20:29)
[2023-03-25] MEDS: ENOXAPARIN 40 MG/0.4 ML SQ SCH (09:07)
[2023-03-25] MEDS: CLOPIDOGREL 75 MG TABLET PO SCH (09:07)
[2023-03-25] MEDS: FOLIC ACID 1 MG TABLET PO SCH (09:07)
[2023-03-25] MEDS: ASPIRIN EC 81 MG TAB PO SCH (09:07)
[2023-03-25] MEDS: AMLODIPINE 5 MG TAB PO SCH (09:08)
[2023-03-25] MEDS: ATORVASTATIN 10 MG TAB PO SCH (20:30)
[2023-03-26] MEDS: DIPHENHYDRAMINE 25 MG TAB/CAP PO PRN (00:12)
[2023-03-26] MEDS: METOPROLOL TAR 50 MG TAB PO SCH ×2 (06:00→17:31)
[2023-03-26] MEDS: INSULIN -REGULAR HUMAN 50 UNIT/0.5 ML ML SQ SCH ×4 (07:30→20:55)
[2023-03-26] MEDS: CLOPIDOGREL 75 MG TABLET PO SCH (08:51)
[2023-03-26] MEDS: ENOXAPARIN 40 MG/0.4 ML SQ SCH (08:51)
[2023-03-26] MEDS: DOCUSATE NA 100 MG CAP PO SCH ×2 (08:51→20:53)
[2023-03-26] MEDS: FOLIC ACID 1 MG TABLET PO SCH (08:51)
[2023-03-26] MEDS: ASPIRIN EC 81 MG TAB PO SCH (08:51)
[2023-03-26] MEDS: LOSARTAN POTASSIUM 50 MG TABLET PO SCH ×2 (08:51→20:53)
[2023-03-26] MEDS: AMLODIPINE 5 MG TAB PO SCH (08:51)
[2023-03-26 13:14] LABS: Absolute Lymphocytes (CBC) 2.4 K/uL (0.7-4.9); Hematocrit 43.8 % (39.6-49.0); Lymphocytes % 19.3 % (15.3-44.8); MCV 86.9 fL (80-100); MPV 7.4 fL (7.6-11.3); Platelets 310 thou/uL (152-406); RBC Red Blood Cell Count 5.04 M/uL (4.33-5.43)
[2023-03-26 13:25] LABS: Potassium 3.9 mEq/L (3.5-5.1)
[2023-03-26] MEDS: ATORVASTATIN 10 MG TAB PO SCH (20:53)
--- NOTE | 2023-03-27 03:21 | P.PN ---
Date of Service: 03/25/23 Subjective Patient continues to participate with therapy. Spoke with daughter and told her she needs to try to make it to the physical therapy sessions. We are also going to try to see if patient's insurance company will approve for inpatient rehab. Review of Systems 10-point ROS is otherwise unremarkable Physical Examination - Vital Signs Reviewed - Physical Exam General: Alert, In no apparent distress, Oriented x3 Neurological: Patient left-sided weakness; gait abnormality; 0 out of 5 with gravity on the left upper extremity; 3/5 lower extremity Assessment & Plan - Problems (Diagnosis) (1) Lacunar infarct, acute Current Visit: Yes Status: Acute (2) HTN (hypertension) Current Visit: Yes Status: Acute (3) Dyslipidemia Current Visit: Yes Status: Acute (4) DM2 (diabetes mellitus, type 2) Current Visit: Yes Status: Acute - Plan No changes in the plan of care at this time: 1. MRI of the brain with acute infarct; patient with centrum semiovale ovale infarct s/p TNK; Patient's long-term prognosis for neurological recovery will be determined over the course of the next few months. 2. Antiplatelet and statin therapy 3. Lipid profile shows LDL to be 99 4. Physical therapy and speech therapy/OT appreciated 5. DVT prophylaxis 6. BP control 7. Trying to get pt to inpt rehab 8. GI and DVT prophylaxis - Code Status/Comfort Care Code Status: Full Code Critical Care: No Time Spent Managing PTS Care (In Minutes): 25
--- NOTE | 2023-03-27 03:23 | P.PN ---
Date of Service: 03/26/23 Subjective Pt doing well with no new complaints; since insurance established trying to get to inpt rehab; recent fall about 72hrs ago and high risk of falling at home. But Family understands that if patient does not get approved for inpatient rehab they will work with physical therapy during the sessions that patient has in the hospital and get him ready for discharge home with home health and they will continue working with him going forward too. Physical Examination - Vital Signs Reviewed - Physical Exam General: Alert, In no apparent distress, Oriented x3 Neurological: Patient left-sided weakness; gait abnormality; 0 out of 5 with gravity on the left upper extremity; 3/5 lower extremity Assessment & Plan - Problems (Diagnosis) (1) Lacunar infarct, acute Current Visit: Yes Status: Acute (2) HTN (hypertension) Current Visit: Yes Status: Acute (3) Dyslipidemia Current Visit: Yes Status: Acute (4) DM2 (diabetes mellitus, type 2) Current Visit: Yes Status: Acute - Plan No changes in the plan of care at this time: 1. MRI of the brain with acute infarct; patient with centrum semiovale ovale infarct s/p TNK; Patient's long-term prognosis for neurological recovery will be determined over the course of the next few months. 2. Antiplatelet and statin therapy 3. Lipid profile shows LDL to be 99 4. Physical therapy and speech therapy/OT appreciated 5. DVT prophylaxis 6. BP control 7. Trying to get pt to inpt rehab 8. GI and DVT prophylaxis - Code Status/Comfort Care Code Status: Full Code Critical Care: No Time Spent Managing PTS Care (In Minutes): 25
[2023-03-27] MEDS: METOPROLOL TAR 50 MG TAB PO SCH ×2 (06:00→17:35)
[2023-03-27] MEDS: INSULIN -REGULAR HUMAN 50 UNIT/0.5 ML ML SQ SCH ×4 (07:30→21:15)
[2023-03-27] MEDS: FOLIC ACID 1 MG TABLET PO SCH (08:27)
[2023-03-27] MEDS: LOSARTAN POTASSIUM 50 MG TABLET PO SCH ×2 (08:27→21:14)
[2023-03-27] MEDS: ENOXAPARIN 40 MG/0.4 ML SQ SCH (08:27)
[2023-03-27] MEDS: CLOPIDOGREL 75 MG TABLET PO SCH (08:27)
[2023-03-27] MEDS: AMLODIPINE 5 MG TAB PO SCH (08:27)
[2023-03-27] MEDS: ASPIRIN EC 81 MG TAB PO SCH (08:27)
[2023-03-27] MEDS: DOCUSATE NA 100 MG CAP PO SCH ×2 (08:27→21:14)
--- NOTE | 2023-03-27 16:33 | P.PN ---
Subjective Date of Service: 03/27/23 Chief Complaint: Right sided weakness and dysarthria No new changes. He had a fall over the weekend. He has been working well with PT. He has a new insurance plan that took effect today. CM to review to see if he has benefits for inpatient rehab. Review of Systems 10-point ROS is otherwise unremarkable General: Weakness (left-sided) Physical Examination - Vital Signs Temperature: 97.9 F Blood Pressure: 136/71 Pulse: 78 Respirations: 16 Pulse Ox (%): 97 - Studies Medications List Reviewed: Yes Assessment And Plan - Plan - Physical Exam General: Alert, In no apparent distress, Oriented x3 HEENT: Atraumatic, Sclerae nonicteric Respiratory: Clear to auscultation bilaterally, Normal air movement Cardiovascular: No edema, Regular rate/rhythm, No murmurs Gastrointestinal: Normoactive bowel sounds, Soft, Non-distended, No tenderness Musculoskeletal: No clubbing Integumentary: No rashes Neurological: Normal speech, Sensation intact, Other (left-sided facial droop noted), Abnormal speech (0/5 strength in LUE, 3-4/5 strength in LLE, 5/5 strength in RUE/RLE) NIH Stroke Scale 1a. Level of consciousness: 0 - Alert; keenly responsive 1b. LOC questions: 0 - Both questions right 1c. LOC commands: 0 - Performs both tasks 2. Best Gaze: 0 - Normal 3. Visual: 0 - No visual loss 4. Facial Palsy: 3 - unilateral complete paralysis (left) 5a. Motor left arm: 4 - no movement 5b. Motor right arm: 0 - No drift for 10 seconds 6a. Motor left le -Drift, but doesn't hit bed 6b. Motor right le - No drift for 5 seconds 7. Limb ataxia: 0 - No ataxia 8. Sensory: 0 - Normal; no sensory loss 9. Best Language: 0 - Normal; no aphasia 10. Dysarthria: 0 - Normal 11. Extinction and Inattention: 0 - No abnormality 12. Distal motor function: 0 - No abnormality Total Score: 8 # Acute Right Centrum Semiovale Cerebrovascular Accident # Hyperlipidemia - Consulted Neurology and spoke with Dr. Michel - recommendations appreciated - NIHSS = 8 - Radiology: - Initial CT head = "1. No acute intracranial abnormality by CT criteria" - CT head angiogram = "no evidence of large vessel occlusion or flow-limiting stenosis." - CT neck angiogram = "no significant flow abnormality of the neck vessels is identified. Findings as above" - MRI brain = "right centrum semiovale acute to subacute infarct. No evidence of intracranial hemorrhage or significant mass effect." - 24 hours post-tenecteplase CT head = "known right centrum semiovale subacute infarct. No other evidence of an acute intracranial process" - Transthoracic echocardiogram = "1. normal left ventricular ejection fraction 60-65%. 2. normal wall motion. 3. grade I diastolic dysfunction. mild concentric left ventricular hypertrophy." - q4hr neurochecks - PT/OT evaluation requested - appreciate CM assistance with placement - Ordered risk profile: - Hgb A1c = 10.8 % - Lipid panel = TC 191, LDL 99, HDL 42, TG 250 - TSH = 2.48 - Continue aspirin, atorvastatin, folic acid, clopidogrel # Hyperglycemia in Type II Diabetes Mellitus - Hgb A1c = 10.8 % - Correction scale insulin # Hypertension - Continue home amlodipine, metoprolol, losartan 03/16: Working well with PT. Appreciate CM assistance with placement. 03/17: Working well with PT. Working with business office to arrange inpatient rehab placement. 03/18: He is planning to speak with business office tomorrow morning to arrange inpatient rehab placement. Everardo Duarte M.D.
[2023-03-27] MEDS: ATORVASTATIN 10 MG TAB PO SCH (21:15)
[2023-03-28 03:42] LABS: Absolute Lymphocytes (CBC) 2.7 K/uL (0.7-4.9); Hematocrit 41.7 % (39.6-49.0); Lymphocytes % 23.5 % (15.3-44.8); MCV 86.5 fL (80-100); MPV 7.4 fL (7.6-11.3); Platelets 294 thou/uL (152-406); RBC Red Blood Cell Count 4.82 M/uL (4.33-5.43)
[2023-03-28] MEDS: METOPROLOL TAR 50 MG TAB PO SCH ×2 (05:35→18:00)
[2023-03-28] MEDS: INSULIN -REGULAR HUMAN 50 UNIT/0.5 ML ML SQ SCH ×4 (09:24→21:12)
[2023-03-28] MEDS: ENOXAPARIN 40 MG/0.4 ML SQ SCH (09:24)
[2023-03-28] MEDS: ASPIRIN EC 81 MG TAB PO SCH (09:24)
[2023-03-28] MEDS: FOLIC ACID 1 MG TABLET PO SCH (09:25)
[2023-03-28] MEDS: LOSARTAN POTASSIUM 50 MG TABLET PO SCH ×2 (09:25→21:11)
[2023-03-28] MEDS: CLOPIDOGREL 75 MG TABLET PO SCH (09:25)
[2023-03-28] MEDS: DOCUSATE NA 100 MG CAP PO SCH ×2 (09:25→21:12)
[2023-03-28] MEDS: AMLODIPINE 5 MG TAB PO SCH (09:25)
[2023-03-28 12:22] VITALS: O2SAT 98
--- NOTE | 2023-03-28 16:21 | P.PN ---
Subjective Date of Service: 03/28/23 Chief Complaint: Right sided weakness and dysarthria No new changes. He was seen working with PT this morning. Awaiting insurance response to determine if he has rehab benefits. Review of Systems 10-point ROS is otherwise unremarkable General: Weakness (left-sided) Physical Examination - Vital Signs Temperature: 97.3 F Blood Pressure: 156/81 Pulse: 67 Respirations: 16 Pulse Ox (%): 98 - Studies Medications List Reviewed: Yes Assessment And Plan - Plan - Physical Exam General: Alert, In no apparent distress, Oriented x3 HEENT: Atraumatic, Sclerae nonicteric Respiratory: Clear to auscultation bilaterally, Normal air movement Cardiovascular: No edema, Regular rate/rhythm, No murmurs Gastrointestinal: Normoactive bowel sounds, Soft, Non-distended, No tenderness Neurological: Normal speech, Sensation intact, Other (left-sided facial droop noted), Abnormal speech (0/5 strength in LUE, 3-4/5 strength in LLE, 5/5 strength in RUE/RLE) NIH Stroke Scale 1a. Level of consciousness: 0 - Alert; keenly responsive 1b. LOC questions: 0 - Both questions right 1c. LOC commands: 0 - Performs both tasks 2. Best Gaze: 0 - Normal 3. Visual: 0 - No visual loss 4. Facial Palsy: 3 - unilateral complete paralysis (left) 5a. Motor left arm: 4 - no movement 5b. Motor right arm: 0 - No drift for 10 seconds 6a. Motor left le -Drift, but doesn't hit bed 6b. Motor right le - No drift for 5 seconds 7. Limb ataxia: 0 - No ataxia 8. Sensory: 0 - Normal; no sensory loss 9. Best Language: 0 - Normal; no aphasia 10. Dysarthria: 0 - Normal 11. Extinction and Inattention: 0 - No abnormality 12. Distal motor function: 0 - No abnormality Total Score: 8 # Acute Right Centrum Semiovale Cerebrovascular Accident # Hyperlipidemia - Consulted Neurology and spoke with Dr. Michel - recommendations appreciated - NIHSS = 8 - Radiology: - Initial CT head = "1. No acute intracranial abnormality by CT criteria" - CT head angiogram = "no evidence of large vessel occlusion or flow-limiting stenosis." - CT neck angiogram = "no significant flow abnormality of the neck vessels is identified. Findings as above" - MRI brain = "right centrum semiovale acute to subacute infarct. No evidence of intracranial hemorrhage or significant mass effect." - 24 hours post-tenecteplase CT head = "known right centrum semiovale subacute infarct. No other evidence of an acute intracranial process" - Transthoracic echocardiogram = "1. normal left ventricular ejection fraction 60-65%. 2. normal wall motion. 3. grade I diastolic dysfunction. mild concentric left ventricular hypertrophy." - q4hr neurochecks - PT/OT evaluation requested - appreciate CM assistance with placement - Ordered risk profile: - Hgb A1c = 10.8 % - Lipid panel = TC 191, LDL 99, HDL 42, TG 250 - TSH = 2.48 - Continue aspirin, atorvastatin, folic acid, clopidogrel # Hyperglycemia in Type II Diabetes Mellitus - Hgb A1c = 10.8 % - Correction scale insulin # Hypertension - Continue home amlodipine, metoprolol, losartan Everardo Duarte M.D.
[2023-03-28] MEDS: DIPHENHYDRAMINE 25 MG TAB/CAP PO PRN (19:18)
[2023-03-28] MEDS: ATORVASTATIN 10 MG TAB PO SCH (21:12)
[2023-03-29] MEDS: DIPHENHYDRAMINE 25 MG TAB/CAP PO PRN (02:37)
[2023-03-29 04:07] LABS: Magnesium 2.1 mg/dL (1.6-2.4); Phosphorus 3.4 mg/dL (2.5-4.9); Potassium 3.5 mEq/L (3.5-5.1)
[2023-03-29] MEDS: METOPROLOL TAR 50 MG TAB PO SCH (05:34)
[2023-03-29] MEDS ORDERED: POTASSIUM CL SA 10 MEQ TAB PO ONE (09:00)
[2023-03-29 09:17] VITALS: BP 130/66; TEMP 97.3
[2023-03-29] MEDS: DOCUSATE NA 100 MG CAP PO SCH (09:31)
[2023-03-29] MEDS: FOLIC ACID 1 MG TABLET PO SCH (09:31)
[2023-03-29] MEDS: LOSARTAN POTASSIUM 50 MG TABLET PO SCH (09:31)
[2023-03-29] MEDS: AMLODIPINE 5 MG TAB PO SCH (09:31)
[2023-03-29] MEDS: CLOPIDOGREL 75 MG TABLET PO SCH (09:32)
[2023-03-29] MEDS: ENOXAPARIN 40 MG/0.4 ML SQ SCH (09:32)
[2023-03-29] MEDS: ASPIRIN EC 81 MG TAB PO SCH (09:32)
[2023-03-29] MEDS: INSULIN -REGULAR HUMAN 50 UNIT/0.5 ML ML SQ SCH ×2 (10:01→12:43)
--- NOTE | 2023-03-29 12:10 | P.DS ---
Admission Date: 03/08/23 Discharge Date: 03/29/23 Disposition: TRANSFER TO INPATIENT REHAB Discharge Condition: GOOD Reason for Admission: Right sided weakness and dysarthria Consultations: 1. Neurology Hospital Course: DIAGNOSES: # Acute Right Centrum Semiovale Cerebrovascular Accident # Hyperlipidemia # Hyperglycemia in Type II Diabetes Mellitus # Hypertension # Right Temporalis Region Dermal or Hypodermal Cyst (1.5 cm) HOSPITAL COURSE: Mr. Mohit Gamez is a pleasant 67 year old male with a past medical history significant for type II diabetes mellitus, hypertension, and hyperlipidemia who was admitted to the [facility] on 03/08/2023 for rightsided weakness and dysarthria. He was admitted to the Medicine service. Upon further evaluation, his initial CT head revealed, "1. No acute intracranial abnormality by CT criteria." He was given tenecetplase and monitored in the intensive care unit. His CT head angiogram revealed, "no evidence of large vessel occlusion or flow-limiting stenosis." His CT neck angiogram revealed, "no significant flow abnormality of the neck vessels is identified. Findings as above." His MRI brain revealed, "right centrum semiovale acute to subacute infarct. No evidence of intracranial hemorrhage or significant mass effect." His repeat CT head 24 hours post- tenecteplase revealed, "known right centrum semiovale subacute infarct. No other evidence of an acute intracranial process." His transthoracic echocardiogram revealed, "1. normal left ventricular ejection fraction 60-65%. 2. normal wall motion. 3. grade I diastolic dysfunction. mild concentric left ventricular hypertrophy." PT/OT were consulted and it was recommended that he be discharged with continued therapy services. However, discharge was delayed due to insurance issues. With the assistance of case management, he was accepted to [facility]. On 03/29/2023, he was seen on rounds and deemed medically stable for discharge. He was given the opportunity to ask questions and reported no further questions. Furthermore, all questions were answered to the best of my ability. Today, I personally spent 20 minutes on his case, of which greater than 50% of the time was spent in patient education, counseling, and coordination of care as described above. - Physical Exam General: Alert, In no apparent distress, Oriented x3 HEENT: Atraumatic, Sclerae nonicteric Respiratory: Clear to auscultation bilaterally, Normal air movement Cardiovascular: No edema, Regular rate/rhythm, No murmurs Gastrointestinal: Normoactive bowel sounds, Soft, Non-distended, No tenderness Neurological: Normal speech, Sensation intact, Other (left-sided facial droop noted), Abnormal speech (0/5 strength in LUE, 3-4/5 strength in LLE, 5/5 strength in RUE/RLE) NIH Stroke Scale 1a. Level of consciousness: 0 - Alert; keenly responsive 1b. LOC questions: 0 - Both questions right 1c. LOC commands: 0 - Performs both tasks 2. Best Gaze: 0 - Normal 3. Visual: 0 - No visual loss 4. Facial Palsy: 3 - unilateral complete paralysis (left) 5a. Motor left arm: 4 - no movement 5b. Motor right arm: 0 - No drift for 10 seconds 6a. Motor left le -Drift, but doesn't hit bed 6b. Motor right le - No drift for 5 seconds 7. Limb ataxia: 0 - No ataxia 8. Sensory: 0 - Normal; no sensory loss 9. Best Language: 0 - Normal; no aphasia 10. Dysarthria: 0 - Normal 11. Extinction and Inattention: 0 - No abnormality 12. Distal motor function: 0 - No abnormality Total Score: 8 Vital Signs/Physical Exam: Temp Pulse Resp BP Pulse Ox 97.3 F 69 15 130/66 97 03/29/23 08:00 03/29/23 09:31 03/29/23 08:00 03/29/23 09:31 03/29/23 08:00 Laboratory Data at Discharge: WBC 11.30 thou/uL (4.3-10.9) H 03/28/23 02:11 Hgb 14.0 g/dL (13.6-17.9) 03/28/23 02:11 Hct 41.7 % (39.6-49.0) 03/28/23 02:11 Plt Count 294 thou/uL (152-406) 03/28/23 02:11 PT 12.5 SECONDS (9.5-12.5) 03/13/23 02:10 INR 1.14 03/13/23 02:10 APTT 38.5 SECONDS (24.3-36.9) H 03/13/23 02:10 Sodium 136 mEq/L (136-145) 03/29/23 03:16 Potassium 3.5 mEq/L (3.5-5.1) 03/29/23 03:16 BUN 19 mg/dL (7-18) H 03/29/23 03:16 Creatinine 0.83 mg/dL (0.70-1.30) 03/29/23 03:16 Glucose 206 mg/dL (74-106) H 03/29/23 03:16 Phosphorus 3.4 mg/dL (2.5-4.9) 03/29/23 03:16 Magnesium 2.1 mg/dL (1.6-2.4) 03/29/23 03:16 Total Bilirubin 0.5 mg/dL (0.2-1.0) 03/09/23 05:05 AST 5 U/L (15-37) L 03/09/23 05:05 ALT 17 U/L (16-61) 03/09/23 05:05 Alkaline Phosphatase 69 U/L (45-117) D 03/09/23 05:05 Triglycerides 250 mg/dL (<150) H 03/09/23 05:05 Cholesterol 191 mg/dL (<200) 03/09/23 05:05 HDL Cholesterol 42 mg/dL (40-60) 03/09/23 05:05 Cholesterol/HDL Ratio 4.55 03/09/23 05:05 Home Medications: Amlodipine [Norvasc*] 5 mg PO DAILY tab 03/29/23 Aspirin [Aspirin EC 81 MG] 81 mg PO DAILY #1 03/29/23 Atorvastatin Calcium [Lipitor*] 10 mg PO BEDTIME tab 03/29/23 Clopidogrel Bisulfate [Plavix*] 75 mg PO DAILY 03/29/23 Losartan Potassium [Cozaar*] 50 mg PO BID 03/29/23 Metoprolol Tartrate [Lopressor*] 50 mg PO BID 6AM 6PM tab 03/29/23 New Medications: Aspirin [Aspirin EC 81 MG] 81 mg PO DAILY #1 Physician Discharge Instructions: PROBLEM: Acute CVA, L sided weakness. GOAL: Clear understanding of disease process INSTRUCTIONS: Continue care at inpatient rehab. Return to ER if symptoms worsen Diet: AHA Activity: Fall precautions COMMUNITY SERVICES Services Needed: Name of Company: Inpatient Rehab Date or Referral: - Continue care at Inpatient Rehab Diet: AHA Activity: Fall precautions Followup: Niranjan Michel MD [ASSOCIATE-ACTIVE - CAN ADMIT] -
== END 2023-03-29 13:59 | DRG 62 ==
LOC: ER 05:30 → ERHOLD 10:55 → 3RD-ICU 12:56 → 2ND 03-11 20:05
PROVIDERS: ADMIT Hospitalist; ATTEND Internal Medicine
DX: I63.9 Cerebral infarction, unspecified (principal); G81.94 Hemiplegia, unspecified affecting left nondominant side; I16.0 Hypertensive urgency; E11.65 Type 2 diabetes mellitus with hyperglycemia; I10 Essential (primary) hypertension; E78.00 Pure hypercholesterolemia, unspecified; F17.210 Nicotine dependence, cigarettes, uncomplicated; R29.704 NIHSS score 4; R47.81 Slurred speech; R47.1 Dysarthria and anarthria; Z71.6 Tobacco abuse counseling; Z79.84 Long term (current) use of oral hypoglycemic drugs; Z90.49 Acquired absence of other specified parts of digestive tract; Z79.82 Long term (current) use of aspirin; Z79.02 Long term (current) use of antithrombotics/antiplatelets; Z79.899 Other long term (current) drug therapy
CPT/HCPCS: 36415; 70450; 70496; 70498; 70551; 71045; 80048; 80053; 80061; 80076; 80307; 81001; 82947; 83036; 83735; 84100; 84132; 84443; 84484; 85025; 85610; 85730; 92523; 92526; 92610; 92977; 93005; 93306; 97110; 97112; 97116; 97140; 97161; 97165; 97530; 97542; 99291; 99292; J0360; J1650; J1815; J2405; J3101; J7030; J7040; Q9967

== ENCOUNTER 2023-03-19 10:25 | Inpatient (IN) | payer OTHER ==
[2023-03-29 14:21] VITALS: BMI 30.2
[2023-03-29] MEDS ORDERED: GLUCAGON 1 MG/VIAL IM PRN (14:40)
[2023-03-29] MEDS ORDERED: D10W 250 ML BAG IV PRN (14:40)
[2023-03-29] MEDS ORDERED: BISACODYL 10 MG RECTAL SUPP PR PRN (16:11)
[2023-03-29] MEDS ORDERED: ACETAMINOPHEN 500 MG TAB PO PRN (16:20)
[2023-03-29] MEDS ORDERED: ONDANSETRON 4 MG (ODT) TAB PO PRN (16:20)
[2023-03-29] MEDS: INSULIN -REGULAR HUMAN 50 UNIT/0.5 ML ML SQ SCH ×2 (16:30→20:24)
[2023-03-29] MEDS: ENOXAPARIN 40 MG/0.4 ML SQ SCH (16:56)
[2023-03-29] MEDS: METOPROLOL TAR 50 MG TAB PO SCH (17:15)
[2023-03-29] MEDS: DIPHENHYDRAMINE 25 MG TAB/CAP PO PRN (18:24)
[2023-03-29] MEDS: DOCUSATE NA 100 MG CAP PO SCH (19:13)
[2023-03-29] MEDS: ATORVASTATIN 10 MG TAB PO SCH (19:13)
[2023-03-29] MEDS: LOSARTAN POTASSIUM 50 MG TABLET PO SCH (19:13)
[2023-03-29 21:33] LABS: Specific Gravity 1.016 (1.005-1.030); Urine Bacteria None Seen /HPF (<20); Urine Bilirubin NEGATIVE (Negative); Urine Blood Negative (Negative); Urine Clarity Clear (Clear); Urine Color Light-Yellow (Yellow); Urine Glucose NEGATIVE (Negative); Urine Mucus Slight /HPF (None Seen); Urine Protein 1+ (Negative); Urine RBC <5 /HPF (None Seen); Urine Urobilinogen 1+ (Normal); Urine pH 5.5 (5.0-7.0)
[2023-03-30] MEDS: DIPHENHYDRAMINE 25 MG TAB/CAP PO PRN ×2 (02:32→20:24)
[2023-03-30] MEDS: METOPROLOL TAR 50 MG TAB PO SCH ×2 (05:41→17:11)
[2023-03-30 06:13] LABS: Absolute Lymphocytes (CBC) 2.8 K/uL (0.7-4.9); Hematocrit 41.6 % (39.6-49.0); Lymphocytes % 23.5 % (15.3-44.8); MCV 86.7 fL (80-100); MPV 7.4 fL (7.6-11.3); Platelets 304 thou/uL (152-406)
[2023-03-30 06:33] LABS: Albumin 3.1 g/dL (3.4-5.0); Potassium 3.8 mEq/L (3.5-5.1); Prealbumin 17.9 mg/dL (20-40)
[2023-03-30] MEDS: ENOXAPARIN 40 MG/0.4 ML SQ SCH (07:01)
[2023-03-30] MEDS: INSULIN -REGULAR HUMAN 50 UNIT/0.5 ML ML SQ SCH ×4 (07:17→20:13)
[2023-03-30] MEDS ORDERED: ASPIRIN EC 81 MG TAB PO SCH (08:00)
[2023-03-30] MEDS: DOCUSATE NA 100 MG CAP PO SCH (08:00)
[2023-03-30] MEDS: CLOPIDOGREL 75 MG TABLET PO SCH (08:35)
[2023-03-30] MEDS: DOCUSATE NA/SENNA CONC 1 TAB PO SCH ×2 (08:35→20:12)
[2023-03-30] MEDS: FOLIC ACID 1 MG TABLET PO SCH (08:36)
[2023-03-30] MEDS: ASPIRIN EC 81 MG TAB PO SCH (08:36)
[2023-03-30] MEDS: LOSARTAN POTASSIUM 50 MG TABLET PO SCH ×2 (08:36→20:12)
[2023-03-30] MEDS: FLUTICASONE 50MCG NASAL SPRAY NAS SCH (10:01)
[2023-03-30] MEDS: AMLODIPINE 5 MG TAB PO SCH (10:02)
[2023-03-30] MEDS: HYDROCORTISONE 1 % CREAM 30GM TOP PRN (10:02)
[2023-03-30] MEDS ORDERED: DOCUSATE NA 100 MG CAP PO PRN (10:10)
--- NOTE | 2023-03-30 13:08 | P.RH.PN ---
Estimated Length of Stay: 21 Expected Discharge Date: 04/21/23 Discharge Disposition Plan: Long-Term Facility Family Support: Yes Infectious Disease Physician Goal: Transfers Vital Signs: Last Vital Signs Temp 97.2 F 03/30/23 13:08 Pulse 60 03/30/23 13:08 Resp 16 03/30/23 13:08 BP 130/68 03/30/23 13:08 Pulse Ox 97 03/30/23 13:08 Laboratory: Laboratory Last Values WBC 12.00 thou/uL (4.3-10.9) H 03/30/23 05:28 RBC 4.80 M/uL (4.33-5.43) 03/30/23 05:28 Hgb 13.7 g/dL (13.6-17.9) 03/30/23 05:28 Hct 41.6 % (39.6-49.0) 03/30/23 05:28 MCV 86.7 fL (80-100) 03/30/23 05:28 MCH 28.5 pg (27.0-35.0) 03/30/23 05:28 MCHC 32.9 g/dL (32.0-36.0) 03/30/23 05:28 RDW 13.9 % (12.1-15.2) 03/30/23 05:28 Plt Count 304 thou/uL (152-406) 03/30/23 05:28 MPV 7.4 fL (7.6-11.3) L 03/30/23 05:28 Neutrophils % 65.3 % (41.7-73.7) 03/30/23 05:28 Lymphocytes % 23.5 % (15.3-44.8) 03/30/23 05:28 Monocytes % 9.0 % (3.3-12.3) 03/30/23 05:28 Eosinophils % 1.6 % (0-4.4) 03/30/23 05:28 Basophils % 0.6 % (0-1.3) 03/30/23 05:28 Absolute Neutrophils 7.8 K/uL (1.8-8.0) 03/30/23 05:28 Absolute Lymphocytes 2.8 K/uL (0.7-4.9) 03/30/23 05:28 Absolute Monocytes 1.1 K/uL (0.1-1.3) 03/30/23 05:28 Absolute Eosinophils 0.2 K/uL (0-0.5) 03/30/23 05:28 Absolute Basophils 0.1 K/uL (0-0.5) 03/30/23 05:28 Sodium 138 mEq/L (136-145) 03/30/23 05:28 Potassium 3.8 mEq/L (3.5-5.1) 03/30/23 05:28 Chloride 108 mEq/L (98-107) H 03/30/23 05:28 Carbon Dioxide 26 mEq/L (21-32) 03/30/23 05:28 Anion Gap 7.8 mEq/L (5.0-15.0) 03/30/23 05:28 BUN 18 mg/dL (7-18) 03/30/23 05:28 Creatinine 0.87 mg/dL (0.70-1.30) 03/30/23 05:28 Est GFR (CKD-EPI) 95 ml/min (=/>90) 03/30/23 05:28 Glucose 197 mg/dL (74-106) H 03/30/23 05:28 POC Glucose 193 mg/dL (65-120) H 03/30/23 11:35 Calcium 9.0 mg/dL (8.5-10.1) 03/30/23 05:28 Magnesium 2.0 mg/dL (1.6-2.4) 03/30/23 05:28 Albumin 3.1 g/dL (3.4-5.0) L 03/30/23 05:28 Prealbumin 17.9 mg/dL (20-40) L 03/30/23 05:28 Urine Color Light-yellow (Yellow) 03/29/23 21:15 Urine Clarity Clear (Clear) 03/29/23 21:15 Urine pH 5.5 (5.0-7.0) 03/29/23 21:15 Ur Specific [place] 1.016 (1.005-1.030) 03/29/23 21:15 Glucose (UA)(Auto) Negative (Negative) 03/29/23 21:15 Urine Ketones Negative (Negative) 03/29/23 21:15 Urine Blood Negative (Negative) 03/29/23 21:15 Urine Nitrite Negative (Negative) 03/29/23 21:15 Urine Bilirubin Negative (Negative) 03/29/23 21:15 Urine Urobilinogen 1+ (Normal) H 03/29/23 21:15 Ur Leukocyte Esterase Negative [place]/uL (Negative) 03/29/23 21:15 Urine RBC <5 /HPF (None Seen) 03/29/23 21:15 Urine WBC <5 /HPF (<5) 03/29/23 21:15 Ur Squamous Epith Cells None seen /HPF (None Seen) 03/29/23 21:15 Urine Bacteria None seen /HPF (<20) 03/29/23 21:15 Urine Mucus Slight /HPF (None Seen) 03/29/23 21:15 Urine Culture Reflexed Not needed 03/29/23 21:15 Urine Total Protein 1+ (Negative) H 03/29/23 21:15 Weight: 210 lb 9.6 oz Wound Present: No Comment: No Skin Breakdown Speech Therapy Update: N/A Summary: 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 Please see the Rehabilitation Signature page for all necessary signatures.
--- NOTE | 2023-03-30 13:08 | P.HP ---
Patient History Allergies No Known Drug Allergies Allergy (Verified 03/29/23 15:49) Unknown Home Medications: Amlodipine [Norvasc*] 5 mg PO DAILY tab 03/29/23 Aspirin [Aspirin EC 81 MG] 81 mg PO DAILY #1 03/29/23 Atorvastatin Calcium [Lipitor*] 10 mg PO BEDTIME tab 03/29/23 Clopidogrel Bisulfate [Plavix*] 75 mg PO DAILY 03/29/23 Losartan Potassium [Cozaar*] 50 mg PO BID 03/29/23 Diphenhydramine [Benadryl*] 25 mg PO Q6H PRN 03/30/23 Docusate [Colace Cap*] 100 mg PO BID 03/30/23 Folic Acid 1 mg PO DAILY 03/30/23 Metoprolol Tartrate [Lopressor*] 50 mg PO BID 03/30/23 - Past Medical/Surgical History Has patient received pneumonia vaccine in the past: Yes Diabetic: Yes -: NIDDM -: HTN -: [place] Cholesterol -: Appendectomy--childhood -: cyst removed from back when pt was a child - Family History Mother Medical History: Heart disease, Hypertension, Diabetes Father Medical History: Heart disease, Hypertension - Social History Smoking Status: Former smoker Alcohol use: No CD- Drugs: No Caffeine use: No Place of Residence: Home Physical Examination - Vital Signs Temperature: 97.2 F Blood Pressure: 130/68 Pulse: 60 Respirations: 16 Pulse Ox (%): 97 - Studies Laboratory Data (last 24 hrs) 03/30/23 03/30/23 05:28 05:28 WBC 12.00 H Hgb 13.7 Hct 41.6 Plt Count 304 Sodium 138 Potassium 3.8 BUN 18 Creatinine 0.87 Glucose 197 H Magnesium 2.0 Assessment & Plan - Advance Directives Does patient have a Living Will: No Does patient have a Durable POA for Healthcare: No
[2023-03-30] MEDS: ATORVASTATIN 10 MG TAB PO SCH (20:12)
[2023-03-31] MEDS: METOPROLOL TAR 50 MG TAB PO SCH ×2 (05:17→17:22)
[2023-03-31] MEDS: ENOXAPARIN 40 MG/0.4 ML SQ SCH (07:20)
[2023-03-31] MEDS: INSULIN -REGULAR HUMAN 50 UNIT/0.5 ML ML SQ SCH ×4 (07:24→19:57)
[2023-03-31] MEDS: AMLODIPINE 5 MG TAB PO SCH ×2 (08:00→12:30)
[2023-03-31] MEDS: LOSARTAN POTASSIUM 50 MG TABLET PO SCH ×3 (08:00→19:57)
[2023-03-31] MEDS: DOCUSATE NA/SENNA CONC 1 TAB PO SCH ×2 (08:00→19:56)
[2023-03-31] MEDS: CLOPIDOGREL 75 MG TABLET PO SCH (08:22)
[2023-03-31] MEDS: FOLIC ACID 1 MG TABLET PO SCH (08:22)
[2023-03-31] MEDS: ASPIRIN EC 81 MG TAB PO SCH (08:22)
[2023-03-31] MEDS: FLUTICASONE 50MCG NASAL SPRAY NAS SCH (08:24)
[2023-03-31] MEDS: HYDROCORTISONE 1 % CREAM 30GM TOP PRN (08:25)
[2023-03-31] MEDS: HYDROCORTISONE 1 % CREAM 30GM TOP SCH (19:56)
[2023-03-31] MEDS: MELATONIN 3 MG TABLET PO PRN (19:56)
[2023-03-31] MEDS: DIPHENHYDRAMINE 25 MG TAB/CAP PO PRN (19:56)
[2023-03-31] MEDS: ATORVASTATIN 10 MG TAB PO SCH (19:57)
[2023-04-01] MEDS: METOPROLOL TAR 50 MG TAB PO SCH ×2 (05:40→16:58)
[2023-04-01] MEDS: ENOXAPARIN 40 MG/0.4 ML SQ SCH (07:30)
[2023-04-01] MEDS: DOCUSATE NA/SENNA CONC 1 TAB PO SCH ×2 (07:31→20:03)
[2023-04-01] MEDS: CLOPIDOGREL 75 MG TABLET PO SCH (07:31)
[2023-04-01] MEDS: HYDROCORTISONE 1 % CREAM 30GM TOP SCH ×2 (07:31→20:12)
[2023-04-01] MEDS: LOSARTAN POTASSIUM 50 MG TABLET PO SCH ×3 (07:31→20:04)
[2023-04-01] MEDS: FOLIC ACID 1 MG TABLET PO SCH (07:32)
[2023-04-01] MEDS: FLUTICASONE 50MCG NASAL SPRAY NAS PRN (07:33)
[2023-04-01] MEDS: INSULIN -REGULAR HUMAN 50 UNIT/0.5 ML ML SQ SCH ×4 (07:34→20:37)
[2023-04-01] MEDS: ASPIRIN EC 81 MG TAB PO SCH (07:35)
[2023-04-01] MEDS: AMLODIPINE 5 MG TAB PO SCH (08:00)
[2023-04-01] MEDS: ATORVASTATIN 10 MG TAB PO SCH (20:04)
[2023-04-01] MEDS: DIPHENHYDRAMINE 25 MG TAB/CAP PO PRN (20:04)
[2023-04-02] MEDS: METOPROLOL TAR 50 MG TAB PO SCH ×2 (05:26→16:45)
[2023-04-02] MEDS: LOSARTAN POTASSIUM 50 MG TABLET PO SCH ×2 (07:25→20:35)
[2023-04-02] MEDS: ENOXAPARIN 40 MG/0.4 ML SQ SCH (07:25)
[2023-04-02] MEDS: DOCUSATE NA/SENNA CONC 1 TAB PO SCH ×2 (07:25→20:36)
[2023-04-02] MEDS: FLUTICASONE 50MCG NASAL SPRAY NAS PRN (07:26)
[2023-04-02] MEDS: FOLIC ACID 1 MG TABLET PO SCH (07:26)
[2023-04-02] MEDS: CLOPIDOGREL 75 MG TABLET PO SCH (07:26)
[2023-04-02] MEDS: HYDROCORTISONE 1 % CREAM 30GM TOP SCH ×2 (07:26→20:00)
[2023-04-02] MEDS: ASPIRIN EC 81 MG TAB PO SCH (07:26)
[2023-04-02] MEDS: INSULIN -REGULAR HUMAN 50 UNIT/0.5 ML ML SQ SCH ×4 (07:27→20:09)
[2023-04-02] MEDS: AMLODIPINE 5 MG TAB PO SCH (09:07)
[2023-04-02] MEDS: ATORVASTATIN 10 MG TAB PO SCH (20:35)
[2023-04-02] MEDS: DIPHENHYDRAMINE 25 MG TAB/CAP PO PRN (20:36)
--- NOTE | 2023-04-03 04:51 | HP ---
Date of Admission: 03/29/2023 Time Of Service: 1:30 p.m. Chief Complaint: Stroke affecting my left side and difficulty getting thoughts or words out. History Of Present Illness: Mr. Gamez is a 67-year-old patient with stroke risk factors of hypertension, dyslipidemia and diabetes mellitus, who came to [facility] with left-sided weakness and dysarthria. His CT scan was unremarkable and he came to hospital within the window for receiving TNKase and did so in the emergency room. 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 He had an EKG which showed a diastolic dysfunction grade 1 and mild left ventricular hypertrophy. The patient was seen in the ICU following TNKas and was evaluated there for elevated blood pressures and blood sugar management along with statin therapy. He did begin to receive physical, occupational and speech therapy. He was determined to have significant weakness in the left upper extremity with paralysis there in left arm and face and to a lesser extent left lower extremity weakness. He did have significant elevations in blood pressure and blood sugar and was impulsive while in acute care. He was determined to be an appropriate candidate for inpatient rehabilitation or physical, occupational and speech therapy. He was therefore admitted to the unit for aggressive therapy. Past Medical History: As noted above. Allergies: NO KNOWN DRUG ALLERGIES. Medications: Tylenol 500 mg every 4 hours as needed, Norvasc 5 mg daily, aspirin 81 mg daily, Lipitor 10 mg at bedtime, Plavix 75 mg daily, Benadryl 25 mg every 6 hours, Colace 100 mg twice daily, Lovenox 40 mg subcutaneously daily, Flonase 1 spray per nostril for allergies as needed, folic acid 1 mg daily. He is on insulin sliding scale. Receives cortisone cream as needed. Melatonin 3 mg at bedtime, Lopressor 50 mg twice a day as needed, Senokot-S two at bedtime, Zofran 4 mg every 6 hours as needed. Family History: Noncontributory. Social History: No alcohol, tobacco, or IV drug use. Laboratory Studies: White blood cell count 12 with neutrophils 65.3, hemoglobin 13.7, hematocrit 41.6. Chemistries: Blood sugars range from 148 to 205. His sodium is 138, potassium 3.8, chloride 108, BUN 18, creatinine 0.87, prealbumin 17.9, albumin 3.1. Urinalysis shows 1+ urobilinogen and 1+ total protein, otherwise is negative. He has no new x-rays or imaging. Family History: Noncontributory. Review of Systems: Mr. Gamez does report more difficulty moving his left upper extremity and he is right-handed and that is after his stroke along with his difficulty with expression and articulation. Otherwise, he denies any fevers, chills. Has mild myalgias and mild arthralgias especially in the left upper extremity. Denies a rash. Denies psychiatric issues. Denies features of depression, gastrointestinal or genitourinary issues. No other positives on the systems review. Current Functional Status: Today, he is able to work on [id number] transfers, completed 10 sets without rest break. Did use left upper body in his transfers. With his gait, he did require minimum assistance for the first 420 feet and then he did fatigue. He did mobilize a total of 508 feet with minimum assistance to moderate assistance. He was allowed 2 rest breaks at 270 feet and another 150 feet. With occupational therapy, he was contact guard assistance for his shower transfers, sit to stand using the grab bars. He did require supervision and verbal cues for safety to protect the left shoulder and joints while bathing. He was evaluated, actually cleared by Speech for the need for speech therapy as he is found to be independent with 100% intelligible words, sentences and fluency. His BIMS score was 15/15. SLUMS score 28/30. Rehabilitation And Medical Assessment And Plan: Mr. Gamez is admitted to the inpatient rehabilitation unit with an impairment category of 01 stroke. His impairment group code is 01.1, left body involvement and right brain. 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 His comorbidities; diabetes mellitus, dyslipidemia, hypertension, right-sided weakness with dysarthria. Plan: He will have physical and occupational therapy and again may be re- evaluated as needed by speech therapy for 3 up to 3.5 hours, 5 of 7 days. Next, he will continue management of his hypertension with Cozaar and losartan along with metoprolol. Continue with insulin sliding scale. Continue with Senokot-S for constipation. Continue Plavix and aspirin for stroke risk reduction. Continue with Lovenox for DVT risk reduction, Norvasc as well for his blood pressure. Tylenol Extra Strength for pain management. Apply topical cream as appropriate. He will have the left hand placed in a brace to help with contractures. Impact Of Comorbidities: Mr. Gamez has diabetes, hypertension, dyslipidemia. He is at risk of additional strokes and blood pressure and blood sugars will be aggressively addressed to decrease the risk. Also, he is at risk of deep vein thrombosis and will continue the Lovenox for DVT prophylaxis at risk of aspiration pneumonia and will have a chest x-ray as appropriate and will have blood sugars again managed aggressively. Rehab Specific Plan: Mr. Gamez will have physical and occupational therapy and if need be, speech therapy for 3.5 hours, 5 of 7 days. He will have improvement of his ability to speak, to swallow, and to have cognitive functioning return to normal including his articulation. Capacity to transfer from bed to chair to toilet and to ambulate: We will work to improve towards modified independence going up and down 20 steps with modified independence, ambulating 500 feet with modified independence. Mr. Gamez has a good understanding of this process of admission to the inpatient rehabilitation unit and he will require physical and occupational therapy at minimum and maybe Speech Therapy as needed. If services such as Nutrition Service, the Renal Service, and Pulmonary Service if required, will be consulted. Given his complex medical condition and risk of further complications, rehabilitation services cannot be effectively provided and safely provided at a lower level of facility such as a custodial facility. Barriers To Discharge: Currently he does have some dysarthria, but communication is still effective and again blood sugars and blood pressures have to be tightly controlled. Estimated Length Of Stay: About 14 days. Disposition: Home with family. Prognosis: Good. Rehabilitation Goals: 1. Become independent with upper and lower body dressing. 2. Independent with transferring from bed to chair to toilet to shower. 3. Independent performing those activities. 4. Independent with his ability to ambulate over 500 feet. 5. Independent with his ability to go up and down 25 steps. 6. Independent with speech and cognition. 7. The above goals have been reviewed with Mr. Gamez and he is in agreement. 8. I acknowledge, I have personally performed a full physical examination on Mr. Gamez after his admission to the inpatient rehabilitation facility and determined he is able to tolerate the above course of treatment at an intensive level for a reasonable period of time. A detailed individualized plan of care for him will be completed by hospital day 4 based on the preadmission screen history and physical, and therapy evaluations. SANJUANA Voice ID: [id number] SANJUANA Voice ID: [id number] JAYDEN
[2023-04-03] MEDS: METOPROLOL TAR 50 MG TAB PO SCH ×2 (05:36→17:12)
[2023-04-03] MEDS: INSULIN -REGULAR HUMAN 50 UNIT/0.5 ML ML SQ SCH ×4 (07:13→20:06)
[2023-04-03] MEDS: ENOXAPARIN 40 MG/0.4 ML SQ SCH (07:14)
[2023-04-03] MEDS: ASPIRIN EC 81 MG TAB PO SCH (07:14)
[2023-04-03] MEDS: DOCUSATE NA/SENNA CONC 1 TAB PO SCH ×2 (07:14→20:06)
[2023-04-03] MEDS: FLUTICASONE 50MCG NASAL SPRAY NAS PRN (07:14)
[2023-04-03] MEDS: LOSARTAN POTASSIUM 50 MG TABLET PO SCH ×2 (07:15→20:07)
[2023-04-03] MEDS: FOLIC ACID 1 MG TABLET PO SCH (07:15)
[2023-04-03] MEDS: HYDROCORTISONE 1 % CREAM 30GM TOP SCH ×2 (07:15→20:00)
[2023-04-03] MEDS: CLOPIDOGREL 75 MG TABLET PO SCH (07:15)
[2023-04-03] MEDS: AMLODIPINE 5 MG TAB PO SCH (08:00)
[2023-04-03] MEDS: ATORVASTATIN 10 MG TAB PO SCH (20:06)
[2023-04-03] MEDS: DIPHENHYDRAMINE 25 MG TAB/CAP PO PRN (20:07)
[2023-04-03] MEDS ORDERED: HYDROCORTISONE 1 % CREAM 30GM TOP PRN (20:08)
--- NOTE | 2023-04-04 04:15 | PN ---
Date of Progress Note: 04/03/2023 Time Of Service: 1:30 p.m. Subjective: Mr. Gamez is actually doing well. He is happy so far with progress, although the left u pper extremity which is densely paretic has not regained much function, although he is again impaired by the left lower extremity strength and beginning to ambulate well. Review of Systems: Some myalgias and arthralgias in left upper extremity, where he has preserved sensation. Otherwise, no fevers or chills. No rash. No evidence of depression and no active genitourinary or gastrointest inal issues. Physical Examination: Vital Signs: Blood pressure 135/82, pulse 70, respiratory rate 16, temperature 97.4, oxygen saturati on 96%. General: Mr. Gamez is sitting in a chair beside his bed. He has his left arm in a sling. HEENT: He appears normocephalic, atraumatic. Sclerae anicteric. Oropharynx pink and moist. Neck: Supple. Chest: Clear. Extremities: His left extremity held in a sling with subtle edema in the left hand and fo rearm. Otherwise, in the right side, no issue such as edema in lower extremities. No significant ed naeem bilaterally. In terms of his motor examination, dense paresis with 0 movement proximally and dis tally in left upper extremity, at least 3 to 4/5 in the proximal and distal left lower extremity, 5/5 in right upper and lower extremity. Laboratory Studies: No new laboratory studies since the . White blood cell count was 12, neutrop hils 65.2, hemoglobin 13.7. His blood sugars were ranged from 151 to 252. X-ray/imaging: No new x-rays or imaging. Medications: Tylenol 500 mg every 4 hours as needed, Norvasc 5 mg daily, aspirin 81 mg daily, Lipito r 10 mg at bedtime, Dulcolax 10 mg per rectum for constipation as needed, Plavix 75 mg daily, Benadry l 25 mg every 6 hours as needed for itching, Colace 100 mg twice daily, Lovenox 40 mg subcutaneously daily, Flonase 1 spray per nostril daily as needed, folic acid 1 mg daily, hydrocortisone cream appli ed topically to any areas of itch twice daily as needed, Cozaar 50 mg twice daily. He is on mild ins ulin sliding scale, melatonin 3 mg at bedtime, lopressor 50 mg twice daily, Zofran 4 mg every 6 hours as needed, and Senokot-S two at bedtime. Current Functional Status: Today, he was instructed on safe transfers and did several sit to stands, several stand and pivot transfers and did that with a right and quad cane, did complete transfers ve ry well. He worked on stair management, reinforced quality and planning and thinking. He completed 5 steps with minimal assistance initially, but then moderate to max assistance with trying to use the left side. He did ambulate 300 feet, 175 feet, 150 feet, and 100 feet, but required mod to max assi st. He did have a tendency to lose balance. He is not having speech therapy or occupational therapy . He is able to tolerate standing with the left lower extremity and shift balance from left to right and did well. Progress Towards Rehabilitation Goals: Mr. Gamez is making improved progress towards his goals of be coming independent with upper and lower body dressing, transferring, toileting, showering. Ambulatin g 250 feet is modified independence, up and down 10 steps is modified independence, and to continue h is cognitive functioning with modified independence. Assessment: Mr. Gamez is a 67-year-old patient in the rehabilitation unit with a stroke with diffuse dense left upper extremity paresis more than moderate left lower extremity paresis. He has intact s ensation. He has comorbidities of diabetes mellitus, dyslipidemia, hypertension, and stroke with lef t upper extremity weakness left weakness and right dysarthria. His left arm is in a sling. Plan: 1.He will have physical and occupational therapy for 3 hours a day, 5 of 7 days. 2.He will continue with aggressive management of diabetes mellitus, his hypertension, his dyslipidem ia by continuing his medications. Also work on offloading the left upper extremity, keeping it in th e sling to decrease the risk of skin breakdown or injury to the left arm. Comorbidities That Continue To Impact The Rehabilitation Process: He is very impulsive and has a sig nificant risk of falling and while working with the therapist on multiple occasions, he would have fa llen if it were not for the therapist being there. He is, however, working hard to improve that and developing patience as he regains the use of the left upper extremity. BRENDAN/ESTEVAN Voice ID: [id number] Report ID: [id number]
[2023-04-04] MEDS: METOPROLOL TAR 50 MG TAB PO SCH ×2 (05:35→16:59)
[2023-04-04] MEDS: INSULIN -REGULAR HUMAN 50 UNIT/0.5 ML ML SQ SCH ×4 (07:30→20:10)
[2023-04-04] MEDS: LOSARTAN POTASSIUM 50 MG TABLET PO SCH ×2 (08:00→20:09)
[2023-04-04] MEDS: DOCUSATE NA/SENNA CONC 1 TAB PO SCH ×2 (08:00→20:09)
[2023-04-04] MEDS: AMLODIPINE 5 MG TAB PO SCH (08:00)
[2023-04-04] MEDS: ENOXAPARIN 40 MG/0.4 ML SQ SCH (09:00)
[2023-04-04] MEDS: CLOPIDOGREL 75 MG TABLET PO SCH (09:10)
[2023-04-04] MEDS: ASPIRIN EC 81 MG TAB PO SCH (09:10)
[2023-04-04] MEDS: FOLIC ACID 1 MG TABLET PO SCH (09:11)
[2023-04-04] MEDS: DIPHENHYDRAMINE 25 MG TAB/CAP PO PRN (20:09)
[2023-04-04] MEDS: ATORVASTATIN 10 MG TAB PO SCH (20:09)
--- NOTE | 2023-04-05 03:39 | PN ---
Subjective: Mr. Gamez is doing well. He is happy with his therapy. He just completed walking twice around the unit. His left arm is however, still very paretic, unable to move proximally or distally . Very subtle movement with moving the left shoulder, otherwise normal for the left hand. Left leg is doing better. Review of Systems: Myalgias, arthralgias in the left upper extremity. He does have preserved sensation in the left arm and denies any rash, fevers, chills. Denies depression despite his situation and circumstances. Physical Examination: Vital Signs: Blood pressure 135/65, pulse 78, respiratory rate 16, temperature 97.5, O2 saturation 9 5%. General: Mr. Gamez is sitting in a chair beside the bed. HEENT: He appears normocephalic, atraumatic. Sclerae anicteric. Oropharynx pink and moist. Neck: Supple. Chest: Clear. Heart: Regular. Extremities: Show no significant edema or cyanosis. Neurological: He has dense paresis of the left upper extremity. No movement noted proximally and di stally. Left lower extremity has much more movement. Able to extend the leg against gravity. He castillo s left face subtle decrease in the left nasolabial fold which appear excursions. Laboratory Studies: Blood sugars ranged from 138-265. X-ray/imaging: No x-rays or imaging studies. Medications: His medications have been reviewed and are unchanged. Current Functional Status: Today, he did gait training in the morning. Although he was able to ambu late, he did tend to fall 2 or 3 times, but the therapist of course helped him to be steady. He did attempt to go up and down stairs, did work with 2 sets. He did complete a single step 10 times and 5 steps twice with moderate assistance. He did ambulate 200 feet, 175 feet, another 125 fe et, and 75 feet with moderate to maximum assistance. He did show improved endurance and dynamic meghan ding balance for 11 minutes. Progress Towards Rehabilitation Goals: Mr. Rueda is making good progress towards his goals of becomi ng modified independent with his transfers, his upper and lower body dressing and ability to ambulate with a quad cane in the right hand and to be able to go up and down steps. However, he is still billy y impulsive and did have a tendency to fall to the left and given complete lack of strength in the le ft upper extremity, he is likely to be injured as that arm is unable to help him break his fall. Assessment: Mr. Gamez is a 67-year-old patient in the rehabilitation unit with a right hemispheric s troke producing dense paresis of the left upper extremity, much less weakness of the left lower extre mity. He has diabetes, dyslipidemia, hypertension. Plan: 1.Continue with physical and occupational therapy for 3 hours a day, 5 of 7 days. 2.Continue with management of his diabetes mellitus with mild insulin sliding scale. Continue with aspirin and Plavix for stroke risk reduction. Continue Norvasc 5 mg daily, Cozaar 50 mg twice daily, and Lopressor 50 mg twice daily for hypertension. Continue Senokot-S 2 at night for constipation. Continue Zofran 4 mg every 6 hours as needed for nausea. Continue melatonin for insomnia. Continue Flonase and Lipitor 10 mg at night. Comorbidities That Continue To Impact The Rehabilitation Process: He is somewhat impulsive, which pl aces him at high risk of falling since the left arm is unable to assess him in a meaningful way if he was down. He is working hard to pay attention to the lack of movement in the left arm and will need ongoing reminders to help prevent fall injury. BRENDAN/MODL Voice ID: [id number] Report ID: [id number]
[2023-04-05 04:43] LABS: Absolute Lymphocytes (CBC) 2.7 K/uL (0.7-4.9); Hematocrit 37.8 % (39.6-49.0); Lymphocytes % 30.2 % (15.3-44.8); MCV 86.9 fL (80-100); MPV 7.5 fL (7.6-11.3); Platelets 274 thou/uL (152-406); RBC Red Blood Cell Count 4.35 M/uL (4.33-5.43)
[2023-04-05 05:23] LABS: Magnesium 1.9 mg/dL (1.6-2.4); Potassium 3.6 mEq/L (3.5-5.1); Prealbumin 16.8 mg/dL (20-40)
[2023-04-05] MEDS: METOPROLOL TAR 50 MG TAB PO SCH ×2 (05:23→17:15)
[2023-04-05] MEDS: INSULIN -REGULAR HUMAN 50 UNIT/0.5 ML ML SQ SCH ×4 (07:04→19:50)
[2023-04-05] MEDS: ENOXAPARIN 40 MG/0.4 ML SQ SCH (07:10)
[2023-04-05] MEDS: DOCUSATE NA/SENNA CONC 1 TAB PO SCH ×2 (08:00→19:51)
[2023-04-05] MEDS: AMLODIPINE 5 MG TAB PO SCH (08:00)
[2023-04-05] MEDS: LOSARTAN POTASSIUM 50 MG TABLET PO SCH ×2 (08:00→19:51)
[2023-04-05] MEDS: FOLIC ACID 1 MG TABLET PO SCH (08:11)
[2023-04-05] MEDS: CLOPIDOGREL 75 MG TABLET PO SCH (08:12)
[2023-04-05] MEDS: ASPIRIN EC 81 MG TAB PO SCH (08:12)
[2023-04-05] MEDS: DIPHENHYDRAMINE 25 MG TAB/CAP PO PRN (19:52)
[2023-04-05] MEDS: ATORVASTATIN 10 MG TAB PO SCH (19:52)
--- NOTE | 2023-04-05 22:21 | PN ---
Date of Progress Note: 04/05/2023 Time Of Service: 1:30 p.m. Subjective: Mr. Gamez is doing well. He is improving in terms of his mood, but the left upper extre mity does not show more improvement. It continues to be densely paretic. But he is not discouraged. Review of Systems: Mild myalgias, arthralgias in the left upper extremity. Otherwise, no fevers, chills. No rash. No psychiatric issues. Physical Examination: Vital Signs: Blood pressure 128/67, pulse of 80, respiratory rate 16, temperature 97.1, oxygen satur ation 96%. General: Mr. Gamez is sitting in a chair. Speech pathologist is at the bedside. HEENT: He is normocephalic, atraumatic. Sclerae anicteric. He has slight decrease in the left naso labial fold otherwise intact. Extremities: He has dense paresis of left upper extremity. Left lower extremity 3-4/5 strength, oth erwise in the right side fully strong. Laboratory Studies: Blood sugars ranged from 148 to 203. Sodium 142, potassium 3.6, carbon dioxide 28, BUN 16, creatinine 0.86. Prealbumin 16.8, albumin 3.0. White blood cell count 9.0, hemoglobin 1 2.3, platelets 274. X-ray/imaging: No new x-rays or imaging. Medications: His medications have been reviewed and remained unchanged compared to yesterday. Current Functional Status: Today, he ambulated 220 feet, 175 feet, and 150 feet, another 100 feet an d 75 feet with moderate assistance. He did have 2 episodes of loss of balance from which the therapi sts redirected him. He does have impulsivity, although he is capable of ambulating. He is still uns afe. Earlier today, he did have a slight sliding out of the bed, did not injure himself as he slid d own with the therapist holding onto him. Oyo-ox-hzpxh done with contact guard assistance. With occu pational therapy, supervision for shower transfers and holding the grab bars, contact guard assist fo r sit to stand due to impaired standing balance, did stand for 11 minutes to improve his endurance an d engage in tabletop activities. Progress Towards Rehabilitation Goals: Mr. Gamez is making good progress so far towards his goals of becoming independent with upper and lower body dressing, transferring, toileting, showering, ambulat ing, and performing all activities of daily living and performing cognitive functioning. Assessment: Mr. Gamez is a 67-year-old patient in the rehabilitation unit with a stroke in his right hemisphere producing paresis, which is dense in the left upper extremity, less weakness in the left lower extremity. He has impulsivity, diabetes mellitus, dyslipidemia, and hypertension as comorbid c onditions. Plan: 1.He will have physical and occupational therapy for 3 hours a day, 5/7 days. 2.Diabetes mellitus, managed by insulin sliding scale. Stroke risk reduction addressed by the takin g Plavix and aspirin. Hypertension managed with Cozaar and Norvasc along with Lopressor. Senokot S for constipation, Zofran for nausea, melatonin for insomnia, Lipitor for dyslipidemia. Comorbids That Continue To Impact Rehabilitation Process: The patient does have impulsivity, which p uts him at high risk of falling. He is strong enough to ambulate, but will quickly lose balance and therefore family members are actually encouraged to be with the patient so that what it would take to keep him upright safely will be emphasized. Otherwise, he does not have a negative impact in terms of his comorbid conditions on his rehabilitation process. BRENDAN/ESTEVAN Voice ID: [id number] Report ID: [id number]
[2023-04-06] MEDS: METOPROLOL TAR 50 MG TAB PO SCH ×2 (05:27→17:17)
[2023-04-06] MEDS: INSULIN -REGULAR HUMAN 50 UNIT/0.5 ML ML SQ SCH ×4 (07:01→19:59)
[2023-04-06] MEDS: LOSARTAN POTASSIUM 50 MG TABLET PO SCH ×2 (08:00→19:58)
[2023-04-06] MEDS: AMLODIPINE 5 MG TAB PO SCH (08:00)
[2023-04-06] MEDS: ENOXAPARIN 40 MG/0.4 ML SQ SCH (08:00)
[2023-04-06] MEDS: DOCUSATE NA/SENNA CONC 1 TAB PO SCH ×2 (08:00→19:59)
[2023-04-06] MEDS: ASPIRIN EC 81 MG TAB PO SCH (08:40)
[2023-04-06] MEDS: CLOPIDOGREL 75 MG TABLET PO SCH (08:41)
[2023-04-06] MEDS: FOLIC ACID 1 MG TABLET PO SCH (08:45)
--- NOTE | 2023-04-06 14:14 | P.RH.PN ---
Estimated Length of Stay: 17 Expected Discharge Date: 04/12/23 Discharge Disposition Plan: Home Family Support: Yes Prison Goal: Mobility, Transfers, Self Care Vital Signs: Last Vital Signs Temp 96.9 F 04/06/23 06:49 Pulse 62 04/06/23 08:44 Resp 16 04/06/23 06:49 BP 118/65 04/06/23 08:44 Pulse Ox 96 04/06/23 06:49 Laboratory: Laboratory Last Values WBC 9.00 thou/uL (4.3-10.9) 04/05/23 03:50 RBC 4.35 M/uL (4.33-5.43) 04/05/23 03:50 Hgb 12.3 g/dL (13.6-17.9) L 04/05/23 03:50 Hct 37.8 % (39.6-49.0) L 04/05/23 03:50 MCV 86.9 fL (80-100) 04/05/23 03:50 MCH 28.4 pg (27.0-35.0) 04/05/23 03:50 MCHC 32.6 g/dL (32.0-36.0) 04/05/23 03:50 RDW 13.7 % (12.1-15.2) 04/05/23 03:50 Plt Count 274 thou/uL (152-406) 04/05/23 03:50 MPV 7.5 fL (7.6-11.3) L 04/05/23 03:50 Neutrophils % 55.8 % (41.7-73.7) 04/05/23 03:50 Lymphocytes % 30.2 % (15.3-44.8) 04/05/23 03:50 Monocytes % 10.7 % (3.3-12.3) 04/05/23 03:50 Eosinophils % 2.6 % (0-4.4) 04/05/23 03:50 Basophils % 0.7 % (0-1.3) 04/05/23 03:50 Absolute Neutrophils 5.0 K/uL (1.8-8.0) 04/05/23 03:50 Absolute Lymphocytes 2.7 K/uL (0.7-4.9) 04/05/23 03:50 Absolute Monocytes 1.0 K/uL (0.1-1.3) 04/05/23 03:50 Absolute Eosinophils 0.2 K/uL (0-0.5) 04/05/23 03:50 Absolute Basophils 0.1 K/uL (0-0.5) 04/05/23 03:50 Sodium 142 mEq/L (136-145) 04/05/23 03:50 Potassium 3.6 mEq/L (3.5-5.1) 04/05/23 03:50 Chloride 109 mEq/L (98-107) H 04/05/23 03:50 Carbon Dioxide 28 mEq/L (21-32) 04/05/23 03:50 Anion Gap 8.6 mEq/L (5.0-15.0) 04/05/23 03:50 BUN 16 mg/dL (7-18) 04/05/23 03:50 Creatinine 0.86 mg/dL (0.70-1.30) 04/05/23 03:50 Est GFR (CKD-EPI) 96 ml/min (=/>90) 04/05/23 03:50 Glucose 153 mg/dL (74-106) H 04/05/23 03:50 POC Glucose 191 mg/dL (65-120) H 04/06/23 11:07 Calcium 8.9 mg/dL (8.5-10.1) 04/05/23 03:50 Magnesium 1.9 mg/dL (1.6-2.4) 04/05/23 03:50 Albumin 3.0 g/dL (3.4-5.0) L 04/05/23 03:50 Prealbumin 16.8 mg/dL (20-40) L 04/05/23 03:50 Urine Color Light-yellow (Yellow) 03/29/23 21:15 Urine Clarity Clear (Clear) 03/29/23 21:15 Urine pH 5.5 (5.0-7.0) 03/29/23 21:15 Ur Specific [place] 1.016 (1.005-1.030) 03/29/23 21:15 Glucose (UA)(Auto) Negative (Negative) 03/29/23 21:15 Urine Ketones Negative (Negative) 03/29/23 21:15 Urine Blood Negative (Negative) 03/29/23 21:15 Urine Nitrite Negative (Negative) 03/29/23 21:15 Urine Bilirubin Negative (Negative) 03/29/23 21:15 Urine Urobilinogen 1+ (Normal) H 03/29/23 21:15 Ur Leukocyte Esterase Negative Kika/uL (Negative) 03/29/23 21:15 Urine RBC <5 /HPF (None Seen) 03/29/23 21:15 Urine WBC <5 /HPF (<5) 03/29/23 21:15 Ur Squamous Epith Cells None seen /HPF (None Seen) 03/29/23 21:15 Urine Bacteria None seen /HPF (<20) 03/29/23 21:15 Urine Mucus Slight /HPF (None Seen) 03/29/23 21:15 Urine Culture Reflexed Not needed 03/29/23 21:15 Urine Total Protein 1+ (Negative) H 03/29/23 21:15 Weight: 210 lb 9.6 oz Wound Present: No Closed Surgical Incision Present: No Negative Pressure Wound Therapy Present: No Physician Update: Making good progress with all therapy but still has dense left arm paresis but has mild left triceps and wrist dorsiflexion at 1/5. Labs reviewed and are stable. Will start metformin 250 mg twice daily. Comment: No Skin Breakdown Speech Therapy Update: N/A Summary: Patient's care plan and long term care phlebotomist goals have been reviewed and 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 Please see the Rehabilitation Signature page for all necessary signatures.
[2023-04-06] MEDS: METFORMIN HCL 500 MG TAB PO SCH (17:00)
[2023-04-06] MEDS: APIXABAN 2.5 MG TABLET PO SCH (19:58)
[2023-04-06] MEDS: GLUCERNA SHAKE 237 ML CAN PO SCH ×2 (19:58→20:00)
[2023-04-06] MEDS: ATORVASTATIN 10 MG TAB PO SCH (19:59)
[2023-04-06] MEDS: MELATONIN 3 MG TABLET PO PRN (20:04)
[2023-04-07] MEDS: METOPROLOL TAR 50 MG TAB PO SCH ×2 (05:07→17:19)
[2023-04-07] MEDS: INSULIN -REGULAR HUMAN 50 UNIT/0.5 ML ML SQ SCH ×4 (07:30→20:35)
[2023-04-07] MEDS: METFORMIN HCL 500 MG TAB PO SCH (07:43)
[2023-04-07] MEDS: FOLIC ACID 1 MG TABLET PO SCH (07:44)
[2023-04-07] MEDS: APIXABAN 2.5 MG TABLET PO SCH ×2 (07:44→20:35)
[2023-04-07] MEDS: ASPIRIN EC 81 MG TAB PO SCH (07:44)
[2023-04-07] MEDS: DOCUSATE NA/SENNA CONC 1 TAB PO SCH ×2 (07:52→20:34)
[2023-04-07] MEDS: AMLODIPINE 5 MG TAB PO SCH (08:00)
[2023-04-07] MEDS: LOSARTAN POTASSIUM 50 MG TABLET PO SCH ×2 (08:00→20:34)
[2023-04-07] MEDS: GLUCERNA SHAKE 237 ML CAN PO SCH ×2 (10:45→20:35)
[2023-04-07] MEDS: ATORVASTATIN 10 MG TAB PO SCH (20:34)
[2023-04-07] MEDS: DIPHENHYDRAMINE 25 MG TAB/CAP PO PRN (20:34)
[2023-04-08] MEDS: METOPROLOL TAR 50 MG TAB PO SCH ×2 (05:15→16:39)
[2023-04-08] MEDS: INSULIN -REGULAR HUMAN 50 UNIT/0.5 ML ML SQ SCH ×4 (07:44→19:54)
[2023-04-08] MEDS: DOCUSATE NA/SENNA CONC 1 TAB PO SCH ×2 (07:44→19:47)
[2023-04-08] MEDS: GLUCERNA SHAKE 237 ML CAN PO SCH ×2 (07:44→19:48)
[2023-04-08] MEDS: LOSARTAN POTASSIUM 50 MG TABLET PO SCH ×2 (07:45→19:47)
[2023-04-08] MEDS: METFORMIN HCL 500 MG TAB PO SCH ×2 (07:45→16:40)
[2023-04-08] MEDS: FOLIC ACID 1 MG TABLET PO SCH (07:45)
[2023-04-08] MEDS: APIXABAN 2.5 MG TABLET PO SCH ×2 (07:46→19:47)
[2023-04-08] MEDS: ASPIRIN EC 81 MG TAB PO SCH (07:46)
[2023-04-08] MEDS: AMLODIPINE 5 MG TAB PO SCH (09:34)
[2023-04-08] MEDS: ATORVASTATIN 10 MG TAB PO SCH (19:47)
[2023-04-09] MEDS: METOPROLOL TAR 50 MG TAB PO SCH ×2 (05:18→16:57)
[2023-04-09] MEDS: INSULIN -REGULAR HUMAN 50 UNIT/0.5 ML ML SQ SCH ×4 (07:32→20:22)
[2023-04-09] MEDS: DOCUSATE NA/SENNA CONC 1 TAB PO SCH ×2 (07:33→20:21)
[2023-04-09] MEDS: LOSARTAN POTASSIUM 50 MG TABLET PO SCH ×2 (07:33→20:21)
[2023-04-09] MEDS: GLUCERNA SHAKE 237 ML CAN PO SCH ×2 (07:33→20:22)
[2023-04-09] MEDS: ASPIRIN EC 81 MG TAB PO SCH (07:34)
[2023-04-09] MEDS: METFORMIN HCL 500 MG TAB PO SCH ×2 (07:34→16:59)
[2023-04-09] MEDS: FOLIC ACID 1 MG TABLET PO SCH (07:34)
[2023-04-09] MEDS: APIXABAN 2.5 MG TABLET PO SCH ×2 (07:34→20:22)
[2023-04-09] MEDS: AMLODIPINE 5 MG TAB PO SCH (09:22)
--- NOTE | 2023-04-09 20:15 | PN ---
Date of Progress Note: 04/09/2023 Time Of Service: 1:35 p.m. Subjective: Mr. Gamez is doing well. He has good mood. His left upper extremity which is affected by a stroke shows slight improvement in his ability to actually close the fingers on the left hand. No extension or dorsiflexion of the wrist noted and 0 strength in terms of biceps or triceps. Anyway , he is despite that happy with his improvement. Review of Systems: Denies any significant myalgias, arthralgias, rash, headache, weight change, or any other complaints. Objective: Vital Signs: Blood pressure 128/76, pulse of 74, respiratory rate 16, temperature 97.1. Oxygen saturation 95%. General: Mr. Gamez is sitting in a chair beside his bed waiting for the next therapy as such to stef SHEEHAN: He does have a slight decrease of left nasolabial fold. He has good excursions and smiling. Extremities: His left upper extremity is densely paretic. He is able to slightly elevate the should er around 2 to 3/5, 0 biceps, triceps, 0 wrist flexion and extension. He has 1 to 2 finger closure i n the left hand; lower extremity, he has 3+ out of 5 proximally and distally. On the right side, upp er and lower extremity 5/5. Laboratory Studies: Blood sugars ranged from 137 to 216. X-ray/imaging: No new x-rays or imaging. Medications: Have been reviewed and remained unchanged. Current Functional Status: Today, he completed 15 steps with minimum assistance. His left toe did b ump steps as he tried to stand and go up and down the steps. He did ambulate 300 feet and another 25 0 feet 3 times with a right quad cane with contact guard to minimum assistance. He did have left peña tdrop as he ambulated. Progress Towards Rehabilitation Goals: Mr. Gamez is making slow progress in terms of recovery of the left arm strength. However, overall, he is making good progress. His ability to mobilize, transfer to ambulate up and down steps using his right upper and lower extremity and the strength in his left lower extremity. He does have some difficulty with his dressing of upper and lower body, his abilit y to maintain his balance and he is somewhat impulsive, making risk of falling, especially when he go es home. The patient's daughter was on the phone actually when I was evaluating the patient and she was asked to come by to participate in family training so she can facilitate his ability to perform h is ADLs, transfers and dress him safely and for him to use the facility such as a shower and bathroom as well. Assessment And Plan: Mr. Gamez is a 67-year-old patient in the rehabilitation unit with a right gordon spheric stroke producing dense left upper more than lower extremity weakness. He has diabetes mellit us, dyslipidemia, hypertension, and the impulsivity. Plan: 1.Continue with physical and occupational therapy for 3 hours a day, 5 of 7 days. 2.He has multiple comorbidities which are noted including diabetes mellitus, hypertension, dyslipide greg, and he is on multiple medications for that. He has insomnia as well and constipation and those are treated as well, and those medications have been continued. Comorbids That Continue To Impact Rehabilitation: He is regaining strength in the left lower extremi ty more than upper extremity, but he is impulsive and has a tendency to lose balance. The patient's daughter will come by and work with him to help him be safe at home. Otherwise, no other comorbids a re negatively impacting his rehabilitation. LB/MODL Voice ID: [id number] Report ID: [id number]
[2023-04-09] MEDS: ATORVASTATIN 10 MG TAB PO SCH (20:21)
[2023-04-09] MEDS: DIPHENHYDRAMINE 25 MG TAB/CAP PO PRN (20:21)
[2023-04-10] MEDS: METOPROLOL TAR 50 MG TAB PO SCH ×2 (05:13→17:19)
[2023-04-10] MEDS: INSULIN -REGULAR HUMAN 50 UNIT/0.5 ML ML SQ SCH ×4 (07:30→20:03)
[2023-04-10] MEDS: LOSARTAN POTASSIUM 50 MG TABLET PO SCH ×2 (07:42→20:02)
[2023-04-10] MEDS: GLUCERNA SHAKE 237 ML CAN PO SCH ×2 (07:42→20:02)
[2023-04-10] MEDS: DOCUSATE NA/SENNA CONC 1 TAB PO SCH ×2 (07:42→20:02)
[2023-04-10] MEDS: FOLIC ACID 1 MG TABLET PO SCH (07:43)
[2023-04-10] MEDS: METFORMIN HCL 500 MG TAB PO SCH ×2 (07:43→17:19)
[2023-04-10] MEDS: APIXABAN 2.5 MG TABLET PO SCH ×2 (07:43→20:02)
[2023-04-10] MEDS: ASPIRIN EC 81 MG TAB PO SCH (07:43)
[2023-04-10] MEDS: AMLODIPINE 5 MG TAB PO SCH (09:56)
[2023-04-10] MEDS: ATORVASTATIN 10 MG TAB PO SCH (20:02)
[2023-04-10] MEDS: DIPHENHYDRAMINE 25 MG TAB/CAP PO PRN (20:02)
--- NOTE | 2023-04-11 00:09 | PN ---
Date of Progress Note: 04/10/2023 Time Of Service: 1:45 p.m. Subjective: Mr. Gamez is sitting in his room in between therapy sessions, working on his left hand w james, which is affected by stroke. He denies any complaints such as depression or any significant myalgias or arthralgias. Review of Systems: Denies any fevers, chills, nausea, vomiting, rash, headache, or other complaints. Physical Examination: Vital Signs: Blood pressure 126/69, pulse 69, respiratory rate 16, temperature 97.4, oxygen saturati on 94%. HEENT: Mr. Gamez has some decrease in the left nasolabial fold, but shows good excursions and smilin g. He has good labial, lingual, and guttural sounds. Extremities: In terms of his left upper extremity, he has around 1/5 theatre director in the left hand and proxi pia at the left shoulder, 1 to 2/5 otherwise, 0 at the biceps, 0 at the triceps, 0 wrist extension and wrist flexion. He had a lower extremity on the left around 3/5 proximally and distally. Otherwi se, no new findings on examination. Laboratory Studies: Blood sugars ranged from 155 to 239. X-ray/imaging: No new x-rays or imaging. Medications: Medications have been reviewed and remained unchanged. Current Functional Status: With his occupational therapy, I was able to ambulate with a quad cane 80 feet twice, go to the gym and back with supervision and verbal cues. Also with physical therapy, he did ambulate 100 feet with a gordon walker with contact guard assistance. Did have 1 episode of loss of balance. He also ambulated with a quad cane, right hand 250 feet twice with minimum to moderate a ssistance. Did have some loss of balance and stumbling where his left toe dragged due to foot drop. Progress Towards Rehabilitation Goals: Mr. Gamez is making good progress overall towards his goals o f trying to be independent with upper and lower body dressing, transferring, toileting, ambulating 50 0 feet independently, going up and down 15 steps independently, and performing cognitive functioning independently. Assessment: Ms. Gamez is a 67-year-old patient in the rehabilitation unit with a right hemispheric s troke producing dense left arm more than lower extremity weakness and some dysarthria. He has hypert ension, dyslipidemia, diabetes mellitus, and again is impulsive. Plan: 1.Continue with physical, occupational, and speech therapy for 3.5 hours, 5 of 7 days. 2.Continue aggressive management of diabetes, hypertension, dyslipidemia, with medications as noted, which include an insulin sliding scale, Glucophage 250 mg twice daily, Lopressor 50 mg twice daily a long with Cozaar 25 mg twice daily, Senokot-S for constipation, folic acid, and aspirin for stroke ri sk reduction, Eliquis 2.5 mg daily for DVT risk reduction. He also has Norvas for blood pressure co ntrol. Comorbidities That Continue To Impact Rehabilitation: At this point, he is improving but is still im pulsive and therefore, has a tendency to lose balance where the left leg may catch and his left arm i s unable to provide any assistance if he falls. The patient's daughter will come in to work on famil y training as she will be with him as he is discharged home. BRENDAN/ESTEVAN Voice ID: [id number] Report ID: [id number]
[2023-04-11] MEDS: METOPROLOL TAR 50 MG TAB PO SCH ×2 (05:07→17:11)
[2023-04-11] MEDS: INSULIN -REGULAR HUMAN 50 UNIT/0.5 ML ML SQ SCH ×4 (06:50→19:28)
[2023-04-11] MEDS: DOCUSATE NA/SENNA CONC 1 TAB PO SCH ×2 (08:00→19:27)
[2023-04-11] MEDS: METFORMIN HCL 500 MG TAB PO SCH ×2 (08:19→17:12)
[2023-04-11] MEDS: FOLIC ACID 1 MG TABLET PO SCH (08:20)
[2023-04-11] MEDS: ASPIRIN EC 81 MG TAB PO SCH (08:21)
[2023-04-11] MEDS: LOSARTAN POTASSIUM 50 MG TABLET PO SCH ×2 (08:21→19:27)
[2023-04-11] MEDS: APIXABAN 2.5 MG TABLET PO SCH ×2 (08:21→19:27)
[2023-04-11] MEDS: GLUCERNA SHAKE 237 ML CAN PO SCH ×2 (08:21→19:28)
[2023-04-11] MEDS: AMLODIPINE 5 MG TAB PO SCH (10:51)
[2023-04-11] MEDS: ATORVASTATIN 10 MG TAB PO SCH (19:27)
[2023-04-11] MEDS: DIPHENHYDRAMINE 25 MG TAB/CAP PO PRN (19:27)
[2023-04-12 04:08] LABS: Absolute Lymphocytes (CBC) 2.9 K/uL (0.7-4.9); Hematocrit 38.4 % (39.6-49.0); Lymphocytes % 31.5 % (15.3-44.8); MCV 86.7 fL (80-100); MPV 7.1 fL (7.6-11.3); Platelets 274 thou/uL (152-406); RBC Red Blood Cell Count 4.43 M/uL (4.33-5.43)
[2023-04-12 04:32] LABS: Magnesium 1.8 mg/dL (1.6-2.4); Potassium 3.5 mEq/L (3.5-5.1)
[2023-04-12] MEDS: METOPROLOL TAR 50 MG TAB PO SCH (05:04)
[2023-04-12] MEDS: INSULIN -REGULAR HUMAN 50 UNIT/0.5 ML ML SQ SCH (06:46)
[2023-04-12 07:21] VITALS: TEMP 97.1
[2023-04-12] MEDS: ASPIRIN EC 81 MG TAB PO SCH (07:28)
[2023-04-12] MEDS: FOLIC ACID 1 MG TABLET PO SCH (07:28)
[2023-04-12] MEDS: LOSARTAN POTASSIUM 50 MG TABLET PO SCH (07:28)
[2023-04-12] MEDS: APIXABAN 2.5 MG TABLET PO SCH (07:28)
[2023-04-12] MEDS: METFORMIN HCL 500 MG TAB PO SCH (07:29)
[2023-04-12] MEDS: GLUCERNA SHAKE 237 ML CAN PO SCH (08:00)
[2023-04-12] MEDS: DOCUSATE NA/SENNA CONC 1 TAB PO SCH (08:00)
[2023-04-12] MEDS: AMLODIPINE 5 MG TAB PO SCH (08:50)
[2023-04-12 08:52] VITALS: BP 127/66
== END 2023-04-12 10:30 | disposition home health service (06) | DRG 57 ==
LOC: UNDOADMIN 03-29 13:45 → 5TH 03-29 13:45 → UNDOADMIN 03-29 14:10 → 5TH 03-29 14:15
PROVIDERS: ADMIT Psychiatry & Neurology Neurology with Special Qualifications in Child Neurology; ATTEND Psychiatry & Neurology Neurology with Special Qualifications in Child Neurology
DX: I69.354 Hemiplegia and hemiparesis following cerebral infarction affecting left non-dominant side (principal); I69.322 Dysarthria following cerebral infarction; I10 Essential (primary) hypertension; E78.5 Hyperlipidemia, unspecified; K59.00 Constipation, unspecified; G47.00 Insomnia, unspecified
CPT/HCPCS: 36415; 80048; 81001; 82040; 82947; 83735; 84134; 85025; 87086; 87088; 92523; 97032; 97110; 97112; 97116; 97163; 97165; 97530; 97542; J1650; J1815

== ENCOUNTER 2025-05-17 18:53 | Emergency (ER) | payer OTHER ==
--- OUTSIDE RECORDS SUMMARY | 2025-05-17 18:56 | XMS REPORT | Continuity of Care Document ---
Author Name Unknown Address [address] [place] [address] Organization [facility] Address [address] [facility] [facility] [address] [place] [address] Care Team Providers Care Photography Assistant Name Role Phone Kayy Zhou Attending Clinician Unavailable Payers Payer Name Policy Type Policy Number Effective Date Expirati on Date Source [facility] [employer] ([employer]) [id number] [facility] Problems Condition Name Condition Details Condition Category Status Onset Date Resolution Date Last Treatment Date Treating Clinician Comments Source Hyperglyce greg due to type 2 diabetes mellitus Type 2 diabetes mellitus with hyperglyce greg Problem [facility] Hypertensi on HTN (hypertens ion) Problem [facility] Stroke Stroke Problem [facility] 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 CVA, old, hemiparesi s Problem [facility] Obesity Obesity Problem [facility] Arthritis Arthritis Problem [facility] Diabetes mellitus without complicati on Diabetes mellitus without complicati on Problem [facility] 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 Ordering Clinician Indication Dosage Frequency Signature (SIG) Comments Components Source Isosorbide Mononitrate 10 MG Isosorbide Mononitrate 10 MG 2023-08 00:00: 00 No BID Isosorbide Mononitrat e 10 MG amLODIPine Besylate 10 MG amLODIPine Besylate 10 MG No QD amLODIPine Besylate 10 MG Jardiance 10 MG Jardiance 10 MG No Jardiance 10 MG metFORMIN HCl ER 750 MG metFORMIN HCl ER 750 MG No 1{table t_with_ evening _meal} BID metFORMIN HCl ER 750 MG Ozempic (0.25 or 0.5 MG/DOSE) 2 MG/3ML Ozempic (0.25 or 0.5 MG/DOSE) 2 MG/3ML No Ozempic (0.25 or 0.5 MG/DOSE) 2 MG/3ML glipiZIDE 5 MG glipiZIDE 5 MG No QD glipiZIDE 5 MG metFORMIN HCl 500 MG metFORMIN HCl 500 MG No metFORMIN HCl 500 MG Dexcom G6 Sensor - Dexcom G6 Sensor - No Dexcom G6 Sensor - Metoprolol Tartrate 50 MG Metoprolol Tartrate 50 MG No BID Metoprolol Tartrate 50 MG Losartan Potassium 100 MG Losartan Potassium 100 MG No 1{table t} BID Losartan Potassium 100 MG Atorvastati n Calcium 10 MG Atorvastati n Calcium 10 MG No QD Atorvastat in Calcium 10 MG Clopidogrel Bisulfate 75 MG Clopidogrel Bisulfate 75 MG No Clopidogre l Bisulfate 75 MG Vital Signs Vital Name Observation Time Observation Value Comments S ource height 2024-07-29 11:00:00 70 [in_i] [facility] weight-kg 2024-07-29 11:00:00 102.51 kg [facility] bmi 2024-07-29 11:00:00 32.42 kg/m2 [facility] temperature 2024-07-29 11:00:00 97.8 [degF] [facility] respiratory rate 2024-07-29 11:00:00 16 /min [facility] blood pressure systolic 2024-07-29 11:00:00 140 mm[Hg] [facility] blood pressure diastolic 2024-07-29 11:00:00 94 mm[Hg] [facility] height 2024-05-16 11:00:00 70 [in_i] [facility] weight-kg 2024-05-16 11:00:00 102.51 kg [facility] bmi 2024-05-16 11:00:00 32.42 kg/m2 [facility] temperature 2024-05-16 11:00:00 98 [degF] [facility] respiratory rate 2024-05-16 11:00:00 16 /min [facility] heart rate 2024-05-16 11:00:00 70 /min [facility] blood pressure systolic 2024-05-16 11:00:00 140 mm[Hg] [facility] blood pressure diastolic 2024-05-16 11:00:00 86 mm[Hg] [facility] height 2024-04-16 12:00:00 70 [in_i] [facility] weight-kg 2024-04-16 12:00:00 104.33 kg [facility] bmi 2024-04-16 12:00:00 33 kg/m2 [facility] temperature 2024-04-16 12:00:00 98 [degF] [facility] respiratory rate 2024-04-16 12:00:00 16 /min [facility] heart rate 2024-04-16 12:00:00 68 /min [facility] blood pressure systolic 2024-04-16 12:00:00 160 mm[Hg] [facility] blood pressure diastolic 2024-04-16 12:00:00 90 mm[Hg] [facility] height 2024-03-26 10:15:00 70 [in_i] [facility] weight-kg 2024-03-26 10:15:00 104.33 kg [facility] bmi 2024-03-26 10:15:00 33 kg/m2 [facility] temperature 2024-03-26 10:15:00 97.5 [degF] [facility] respiratory rate 2024-03-26 10:15:00 16 /min [facility] heart rate 2024-03-26 10:15:00 67 /min [facility] blood pressure systolic 2024-03-26 10:15:00 150 mm[Hg] [facility] blood pressure diastolic 2024-03-26 10:15:00 70 mm[Hg] [facility] Encounters Start Date/Time End Date/Time Encounter Type Admission Type Attending [facility] Care Department Encounter ID Source 2024-03-26 10:06:01 Outpatient Kayy Zhou [facility] [id number] [facility] 2024-07-29 00:00:00 2024-07-29 00:00:00 (AWV) Annual Wellness Visit CLS CLS [id number] [facility] 2024-05-19 00:00:00 2024-05-19 00:00:00 (TEL) CLS CLS [id number] [facility] 2024-05-16 00:00:00 2024-05-16 00:00:00 (F/U) Follow Up Visit CLS CLS [id number] [facility] 2024-04-23 00:00:00 2024-04-23 00:00:00 (TEL) CLS CLS [id number] [facility] 2024-04-18 00:00:00 2024-04-18 00:00:00 (TEL) CLS CLS [id number] [facility] 2024-04-17 00:00:00 2024-04-17 00:00:00 (TEL) CLS CLS [id number] [facility] 2024-04-16 00:00:00 2024-04-16 00:00:00 Office Visit- Est Pt.- Level 4 CLS CLS [id number] [facility] 2024-03-26 00:00:00 2024-03-26 00:00:00 Office Visit- Est Pt.- Level 4 CLS CLS [id number] [facility]
[2025-05-17] MEDS ORDERED: ONDANSETRON 4 MG/2 ML VIAL ONE (19:14)
[2025-05-17] MEDS ORDERED: Ringers Lactate 1,000 ML IV ONE (19:15)
[2025-05-17] MEDS ORDERED: MECLIZINE HCL 12.5 MG TAB ONE (19:28)
[2025-05-17 19:32] LABS: Absolute Lymphocytes (CBC) 2.4 K/uL (0.7-4.9); Hematocrit 37.6 % (39.6-49.0); Hemoglobin 12.7 g/dL (13.6-17.9); MCH 28.6 pg (27.0-35.0); MCHC 33.7 g/dL (32.0-36.0); MCV 84.8 fL (80-100); MPV 6.9 fL (7.6-11.3); Nucleated RBC Absolute Count 0.0 (0-0); Nucleated Red Blood Cells % 0.1 % (0-0); RBC Red Blood Cell Count 4.44 M/uL (4.33-5.43); White Blood Count 9.70 thou/uL (4.3-10.9)
--- NOTE | 2025-05-17 19:37 | RAD REPORT ---
EXAM: Chest Single View HISTORY: 69 years Male near syncope COMPARISON: 03/08/2023 FINDINGS: LUNGS/PLEURA: Mild airspace disease at the left lung base. CARDIAC/MEDIASTINUM: Mild cardiomegaly UPPER ABDOMEN: No significant abnormality. BONES: No acute abnormality. LINES/TUBES/OTHER: N/A IMPRESSION: Mild left basilar airspace disease could reflect atelectasis and/or pneumonia/pneumonitis.
[2025-05-17 19:47] LABS: ALT/SGPT 22 U/L (16-61); AST/SGOT 13 U/L (15-37); Albumin 3.7 g/dL (3.4-5.0); Albumin/Globulin Ratio 1.2 (1.1-1.8); Alkaline Phosphatase 72 U/L (45-117); Anion Gap 9.4 mEq/L (5.0-15.0); BUN Blood Urea Nitrogen 24 mg/dL (7-18); Globulin 3.2 g/dL (2.3-3.5); Glucose Level 149 mg/dL (74-106); Lipase 22 U/L (13-75); Potassium 3.4 mEq/L (3.5-5.1); Troponin High Sensitivity 3.9 pg/mL (<58.9)
[2025-05-17 19:59] LABS: Bilirubin Indirect, Calculated 0.2 mg/dL (0.2-0.8)
--- NOTE | 2025-05-17 20:13 | RAD REPORT ---
EXAMINATION: Head Brain Wo Cont CLINICAL INDICATION: Male, 69 years old.DIZZINESS TECHNIQUE: Axial CT images from the skull base to the vertex without intravenous contrast. Coronal an d sagittal reformatted images were created from the data set. One or more of the following dose reduction techniques were used: Automated exposure control, adjustment of the mA and/or kV according to patient size, and/or iterative reconstruction. Unless otherwise specified, incidental findings do not require dedicated imaging follow-up. [id number]. COMPARISON: 03/09/2023 FINDINGS: INTRACRANIAL: No acute intracranial hemorrhage. No acute large vascular territory infarct. No hydroce phalus. No mass effect or midline shift. Mild chronic small vessel ischemic changes.Mild cerebral atrophy. Chronic hyperattenuating appearance of the cerebral falx and tentorium. Small remote right c nicole radiata lacunar infarct. VASCULATURE: No visualized abnormalities in the arteries or dural venous sinuses. SCALP/SKULL: No calvarial fracture identified. No acute soft tissue abnormality. SINUSES: The visualized paranasal sinuses are mostly clear. No significant mastoid fluid. IMPRESSION: No acute intracranial abnormality. Chronic changes as noted above.
--- NOTE | 2025-05-17 21:11 | ER ---
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 Coronavirus screen: At this time, the client does not indicate any symptoms associated with coronavirus-19. Ebola Screen: No symptoms or risks identified at this time. Initial Sepsis Screen: Does the patient meet any 2 criteria? No. Patient's initial sepsis screen is negative. Does the patient have a suspected source of infection? No. Patient's initial sepsis screen is negative. Risk Assessment: Do you want to hurt yourself or someone else? Patient reports no desire to harm self or others. Onset of symptoms was May 17, 2025. 18:57 Method Of Arrival: EMS: [facility] iw 18:57 Acuity: SAHRA 3 iw 18:59 Care prior to arrival: Medication(s) given: zofran 4 mg, IV initiated. 20 GA, in the iw left forearm, Glucose check: 133. Historical: - Allergies: 19:01 No Known Allergies; iw - PMHx: 18:58 diabetes mellitus; High Cholesterol; HTN; Cerebrovascular accident; iw - PSHx: 18:58 Appendectomy; iw - Immunization history:: Adult Immunizations up to date. - Infectious Disease History:: Denies. - Social history:: Smoking status: Patient denies any tobacco usage or history of. Screenin:19 [facility] ED Fall Risk Assessment (Adult) History of falling in the last 3 months, lg3 including since admission No falls in past 3 months (0 pts) Confusion or Disorientation No (0 pts) Intoxicated or Sedated No (0 pts) Impaired Gait No (0 pts) Mobility Assist Device Used No (0 pt) Altered Elimination No (0 pt) Score/Fall Risk Level 0 - 2 = Low Risk Oriented to surroundings, Maintained a safe environment, Educated pt \T\ family on fall prevention, incl call for assistance when getting out of bed, Assessed \T\ reinforced patient's understanding of fall precautions. Abuse screen: Denies threats or abuse. Denies injuries from another. Nutritional screening: No deficits noted. Tuberculosis screening: No symptoms or risk factors identified. Assessment: 19:19 General: Appears in no apparent distress. uncomfortable, Behavior is calm, cooperative. lg3 Pain: Denies pain. Neuro: No deficits noted. Fonseca Agitation-Sedation Scale (RASS): 0 - Alert and Calm Level of Consciousness is awake, alert, obeys commands, Oriented to person, place, time, situation, Reports dizziness. Cardiovascular: No deficits noted. Denies chest pain, shortness of breath, Capillary refill < 3 seconds Clubbing of nail beds is absent JVD is absent Patient's skin is warm and dry. Respiratory: No deficits noted. Airway is patent Respiratory effort is even, unlabored, Respiratory pattern is regular, symmetrical. GI: Abdomen is round non-distended, obese, Pt is actively vomiting bile, clear fluid, Bowel sounds present X 4 quads. Abd is soft and non tender X 4 quads. Reports nausea, vomiting. : No signs and/or symptoms were reported regarding the genitourinary system. EENT: No deficits noted. No signs and/or symptoms were reported regarding the EENT system. Derm: Skin is intact, is healthy with good turgor, Skin is diaphoretic, Skin is normal, Skin temperature is warm. Musculoskeletal: Circulation, motion, and sensation intact. Range of motion: limited in left arm from previous CVA. 20:59 Reassessment: Patient appears in no apparent distress at this time. No changes from lg3 previously documented assessment. Patient and/or family updated on plan of care and expected duration. Pain level reassessed. Patient is alert, oriented x 3, equal unlabored respirations, skin warm/dry/pink. Patient states symptoms have improved. 22:09 Reassessment: Patient appears in no apparent distress at this time. No changes from lg3 previously documented assessment. Patient and/or family updated on plan of care and expected duration. Pain level reassessed. Patient is alert, oriented x 3, equal unlabored respirations, skin warm/dry/pink. Patient states feeling better. Patient states symptoms have improved. Vital Signs: 19:00 BP 155 / 110; Pulse 76; Resp 16; Temp 97; Pulse Ox 97% on R/A; iw 19:57 BP 142 / 73; Pulse 75; Resp 20; Pulse Ox 100% ; vc1 20:33 Weight 106.14 kg; vc1 20:59 BP 154 / 90; Pulse 58; Resp 16 S; Pulse Ox 100% on R/A; lg3 22:09 BP 155 / 81; Pulse 78; Resp 16 S; Pulse Ox 98% on R/A; lg3 ED Course: 18:57 Patient arrived in ED. iw 18:57 Raj Verduzco DO is Attending Physician. tt7 18:58 Triage completed. iw 19:01 Arm band placed on. iw 19:19 Patient has correct armband on for positive identification. Placed in gown. Bed in low lg3 position. Call light in reach. Side rails up X 1. Client placed on continuous cardiac and pulse oximetry monitoring. NIBP monitoring applied. patient monitor on. Door closed. Noise minimized. Warm blanket given. Pillow given. Family accompanied patient. 19:21 Joya Negron, RN is Primary Nurse. lg3 19:21 Basic Metabolic Panel Sent. lg3 19:21 CBC with Diff Sent. lg3 19:21 LFT's Sent. lg3 19:21 Troponin HS Sent. lg3 19:22 Maintain EMS IV. Gauge \T\ site: 18G L forearm, dressing changed. Flushed with 10 mL NS lg3 IV is intact, Changed dressing on left forearm Flushed left forearm. 19:30 XRAY Chest (1 view) In Process Unspecified. EDMS 19:55 CT Head Brain wo Cont In Process Unspecified. EDMS 22:09 No provider procedures requiring assistance completed. IV discontinued, intact, lg3 bleeding controlled, No redness/swelling at site. Pressure dressing applied. Administered Medications: 19:21 Drug: Ondansetron IVP 4 mg IVP once; over 2 minutes Route: IVP; Site: left antecubital; lg3 21:02 Follow up: Response: No adverse reaction; Marked relief of symptoms lg3 19:21 Drug: Ringers - Lactated Ringers Solution IV 1000 ml IV at bolus bolus; to be given as lg3 a bolus over 60 minutes Route: IV; Rate: bolus; Site: left antecubital; 22:10 Follow up: Response: No adverse reaction; IV Status: Completed infusion; IV Intake: lg3 1000ml 19:39 Drug: Meclizine PO 25 mg PO once Route: PO; vc1 21:02 Follow up: Response: No adverse reaction; Marked relief of symptoms lg3 Medication: 19:19 VIS not applicable for this client. lg3 Intake: 22:10 IV: 1000ml; Total: 1000ml. lg3 Outcome: 21:11 Discharge ordered by . tt7 22:09 Discharged to home ambulatory, with family, lg3 22:09 Condition: stable 22:09 Discharge instructions given to patient, Instructed on discharge instructions, follow up and referral plans. medication usage, Demonstrated understanding of instructions, follow-up care, medications, Prescriptions given X 1, 22:10 Patient left the ED. lg3 Signatures: Dispatcher [employer] EDMS Vanna Spence RN RN iw Joya Negron RN RN lg3 Elena Fabian RN RN vc1 Raj Verduzco, DO DO tt7
--- NOTE | 2025-05-17 21:11 | EDPHYS ---
Physician Documentation [facility] Name: Mohit Gamez Age: 69 yrs Sex: Male : 1955 Arrival Date: 05/17/2025 Time: 18:53 Bed 6 Private MD: ED Physician Raj Verduzco HPI: 05/17 19:10 This 69 yrs old Male presents to ER via EMS with complaints of lightheadedness, nausea. tt7 19:10 The patient presents with lightheadedness. Onset: The symptoms/episode began/occurred tt7 45 minute(s) ago. Context: occurred while the patient was walking. Modifying factors: The symptoms are alleviated by nothing, the symptoms are aggravated by nothing. Associated signs and symptoms: Pertinent positives: nausea, Pertinent negatives: abdominal pain, blurred vision, chest pain, confusion, focal weakness, head injury, shortness of breath, syncope. 19:24 Patient's baseline: The patient has a previous history of CVA. tt7 Historical: - Allergies: 19:01 No Known Allergies; iw - PMHx: 18:58 diabetes mellitus; High Cholesterol; HTN; Cerebrovascular accident; iw - PSHx: 18:58 Appendectomy; iw - Immunization history:: Adult Immunizations up to date. - Infectious Disease History:: Denies. - Social history:: Smoking status: Patient denies any tobacco usage or history of. Vital Signs: 19:00 BP 155 / 110; Pulse 76; Resp 16; Temp 97; Pulse Ox 97% on R/A; iw 19:57 BP 142 / 73; Pulse 75; Resp 20; Pulse Ox 100% ; vc1 20:33 Weight 106.14 kg; vc1 20:59 BP 154 / 90; Pulse 58; Resp 16 S; Pulse Ox 100% on R/A; lg3 22:09 BP 155 / 81; Pulse 78; Resp 16 S; Pulse Ox 98% on R/A; lg3 MDM: 18:57 Medical Screening Exam initiated tt7 05/17 19:05 Order name: Basic Metabolic Panel; Complete Time: 20:09 tt7 05/17 19:05 Order name: CBC with Diff; Complete Time: 20:09 tt7 05/17 19:05 Order name: LFT's; Complete Time: 20:09 tt7 05/17 19:05 Order name: Troponin HS; Complete Time: 20:09 tt7 05/17 19:05 Order name: Lipase; Complete Time: 20:09 tt7 05/17 19:05 Order name: XRAY Chest (1 view); Complete Time: 20:09 tt7 05/17 19:25 Order name: CT Head Brain wo Cont; Complete Time: 20:14 tt7 05/17 19:05 Order name: Cardiac monitoring; Complete Time: 19:21 tt7 05/17 19:05 Order name: EKG - Nurse/Tech; Complete Time: 19:39 tt7 05/17 19:05 Order name: IV Saline Lock; Complete Time: 19:21 tt7 05/17 19:05 Order name: Labs collected and sent; Complete Time: 19:21 tt7 05/17 19:05 Order name: O2 Per Protocol; Complete Time: 19:21 tt7 05/17 19:05 Order name: O2 Sat Monitoring; Complete Time: 19:21 tt7 Administered Medications: 19:21 Drug: Ondansetron IVP 4 mg IVP once; over 2 minutes Route: IVP; Site: left antecubital; lg3 21:02 Follow up: Response: No adverse reaction; Marked relief of symptoms lg3 19:21 Drug: Ringers - Lactated Ringers Solution IV 1000 ml IV at bolus bolus; to be given as lg3 a bolus over 60 minutes Route: IV; Rate: bolus; Site: left antecubital; 22:10 Follow up: Response: No adverse reaction; IV Status: Completed infusion; IV Intake: lg3 1000ml 19:39 Drug: Meclizine PO 25 mg PO once Route: PO; vc1 21:02 Follow up: Response: No adverse reaction; Marked relief of symptoms lg3 Disposition Summary: 05/17/25 21:11 Discharge Ordered Notes: Location: Home tt7 Problem: new tt7 Symptoms: are resolved tt7 Condition: Stable tt7 Diagnosis - LIGHTHEADEDNESS tt7 - NAUSEA tt7 Followup: tt7 - With: Emergency Department - When: As needed - Reason: Followup: tt7 - With: Private Physician - When: 1 - 2 days - Reason: Recheck today's complaints, Continuance of care, Re-evaluation by your physician Discharge Instructions: - Discharge Summary Sheet tt7 - Orthostatic Hypotension tt7 Forms: - Medication Reconciliation Form tt7 - Antibiotic Education tt7 - Prescription Opioid Use tt7 - Patient Portal Instructions tt7 - Leadership Thank You Letter tt7 Prescriptions: - Zofran 4 mg Oral tablet - take 1 tablet ORAL route every 8 hours As needed; 20 tablet; Refills: 0, tt7 Product Selection Permitted Signatures: Dispatcher [employer] EDMS Vanna Spence, RN ANDRES iw Joya Negron RN RN lg3 Elena Fabian RN RN vc1 Raj Verduzco, DO DO tt7 Corrections: (The following items were deleted from the chart) 19:05 19:05 BASIC METABOLIC PANEL+C.LAB.BRZ ordered. EDMS EDMS 19:05 19:05 CBC+H.LAB.BRZ ordered. EDMS EDMS 19:05 19:05 HEPATIC FUNCTION+C.LAB.BRZ ordered. EDMS EDMS 19:05 19:05 Troponin High Sensitivity+C.LAB.BRZ ordered. EDMS EDMS 19:06 19:06 Chest Single View+RAD.RAD.BRZ ordered. EDMS EDMS 19:06 19:06 LIPASE+C.LAB.BRZ ordered. EDMS EDMS
[2025-05-17 22:34] VITALS: TEMP 97
[2025-05-17 22:39] VITALS: BP 155/81; O2SAT 98
== END 2025-05-17 22:10 | disposition home or self-care (01) ==
LOC: ER 18:53
DX: R11.0 Nausea (principal); R42 Dizziness and giddiness; E11.9 Type 2 diabetes mellitus without complications; E78.00 Pure hypercholesterolemia, unspecified; I10 Essential (primary) hypertension; Z86.73 Personal history of transient ischemic attack (TIA), and cerebral infarction without residual deficits
CPT/HCPCS: 96365; 93005; 85025; 80048; 36415; 80076; 84484; 83690; 70450; 71045; 96375; 99285; 96366; J8597; J2405; J7120